=== PATIENT | female | born 1965 | race African-American/Black ===

== ENCOUNTER 2016-12-20 22:36 | Inpatient (IN) ==
[2016-12-20] MEDS ORDERED: NITROGLYCERIN SL 0.4 MG TABLET SL STA (22:58)
[2016-12-20] MEDS ORDERED: NITROGLYCERIN SL 0.4 MG TABLET SL ONE (23:01)
[2016-12-20] MEDS ORDERED: METOPROLOL TARTRATE 5 MG/5 ML VIAL IV STA (23:06)
[2016-12-20] MEDS ORDERED: ALBUTEROL/IPRATROPIUM 3 ML NEB RESP TX STA (23:09)
[2016-12-20] MEDS ORDERED: METOPROLOL TARTRATE 5 MG/5 ML VIAL IV ONE (23:20)
[2016-12-20 23:22] LABS: Basophils % 0.2 % (0.0-0.8); Eosinophils # 0.1 10*3/uL (0.0-0.87); Hematocrit 37.1 VOL% (35.7-47.0); Hemoglobin 11.7 GM/DL (12.0-16.0); Immature Granulocytes Absolute 0.13 #; Lymphocytes # 2.5 10*3/uL (1.4-4.0); Lymphocytes % 18.9 % (21.3-54.2); Mean Corpuscular HGB Conc 31.5 GM/DL (32-36); Mean Corpuscular Hemoglobin 28 PG (27-34); Mean Corpuscular Volume 89.4 FL (87-102); Monocytes # 0.7 10*3/uL (0.11-0.8); Monocytes % 5.1 % (1.7-12.7); NRBC # 0.07 10*3/uL; Neutrophils # 9.7 10*3/uL (1.4-7.4); Neutrophils % 73.8 % (38.7-73.9); Platelet Count 253 T/CUMM (130-400); Red Blood Count 4.15 MC/CUMM (3.8-5.5); Red Cell Distribution Width 14.2 % (9.3-17.3); White Blood Count 13.1 T/CUMM (4-12)
--- NOTE | 2016-12-20 23:24 | Emergency Department Note ---
Yeni Benavides Mantricia, am scribing for, and in the presence of, Adelaida Lyons DO 23:00. IEloy Debra, DO, personally performed the services described in this documentation, ascribed by Paulie Jaime in my presence, and it is both accurate and complete 324 . Arrival - Arrival Chief Complaint: Shortness of Breath Stated Complaint: Short of breath ED Nursing Triage Note: C/C shortness of breath. Pt was given steroid shot yesterday for URI. EMS gave pt one Albuterol breathing treatment, BS 445 mg/dl. Mode of Arrival: Stretcher Limitations: No Limitations Source: Patient Time Seen by Provider: 12/20/16 22:57 - History of Present Illness HPI Narrative: Pt is a 51 y/o black female arriving to ED by EMS with c/o SOB that onset today. Pt reports that she was seen by her PCP yesterday and was given a steroid shot as the treatment for a sinus infection. She states that after the left the clinic and began to lay down, she became extremely SOB and began to vomit. Pt has a right BKA noted and reports that she coded in 2013 and woke up to her right leg being amputated because of possible blood clot. At time of exam , pt's blood pressure is 221/148. No other complaints were reported to ED. Onset (ago): hour(s) Consistency: constant Severity: mild Allergies/Adverse Reactions: Allergies Allergy/AdvReac Type Severity Reaction Status Date / Time sumatriptan [From Imitrex] Allergy RASH Verified 12/20/16 22:53 zolmitriptan [From Zomig] Allergy RASH Verified 12/20/16 22:53 lidocaine AdvReac Unknown/Unable Verified 12/20/16 22:59 to obtain Review of System - Review of System 12 point system: reviewed and no additional remarkable complaints except as stated - Review of System Constitutional: Absent: chills, diaphoresis, fever Eyes: Absent: pain Head/Ears/Nose/Throat: Absent: earache Respiratory: Present: other (SOB). Absent: cough Cardiovascular: Absent: chest pain Gastrointestinal: Absent: abdominal pain, nausea, vomiting, diarrhea Medical,Surgical,& Family Hx - Medical History Cardio: History of: CHF, CAD, Hypertension, Cardiovascular Problems (Stent) Endocrine: History of: Diabetes Mellitus (IDDM), Dyslipidemia Gastrointestinal: History of: GERD Musculoskeletal: History of: Musculoskeletal Problems (Neuropathy) - Surgical History Cardiac Surgeries: Sugical HX of: Cardiac Catheterization Orthopedic Surgeries: Surgical HX of;: Orthopedic Surgery (RAKA) - Social History Smoking Status: Never smoker Frequency of Alcohol Use: None Type of Drug Use: None Exam Vital Signs: Vital Signs Temperature 98.1 F 12/20/16 22:37 Pulse Rate 97 H 12/20/16 22:37 Respiratory Rate 24 12/20/16 22:37 Blood Pressure 237/127 12/20/16 22:37 O2 Sat by Pulse Oximetry 78 L 12/20/16 22:37 - General General appearance: alert, in no apparent distress, obese - Head Head exam: Present: atraumatic, normocephalic, normal inspection - Eye Eye exam: Present: normal appearance, PERRL, EOMI - ENT ENT exam: Present: normal exam, normal oropharynx, mucous membranes moist, TM's normal bilaterally, normal external ear exam - Neck Neck exam: Present: normal inspection, full ROM, trachea midline. Absent: tenderness - Chest Chest inspection: Present: normal inspection, symmetric chest wall rise. Absent : tenderness - Respiratory Respiratory exam: Present: accessory muscle use, wheezes - Cardiovascular Cardiovascular exam: Present: regular rate, normal rhythm, normal heart sounds - Abdominal Exam Abdominal exam: Present: soft, normal bowel sounds. Absent: distention, tenderness, guarding, rebound - Extremities Exam Extremities exam: Present: normal inspection, full ROM, normal capillary refill , other (right BKA). Absent: tenderness, pedal edema - Back Exam Back exam: Present: normal inspection, full ROM. Absent: tenderness - Neurological Exam Neurological exam: Present: alert, oriented X3, CN II-XII intact, normal gait, reflexes normal - Psychiatric Psychiatric exam: Present: normal affect, normal mood - Skin Skin exam: Present: warm, dry, intact, normal color
[2016-12-20 23:28] LABS: INR 1.1; Partial Thromboplastin Time 37.1 SECS (0-40)
[2016-12-20 23:43] LABS: Alanine Aminotransferase 17 U/L (13-56); Albumin 3.4 G/DL (3.4-5.0); Alkaline Phosphatase 115 U/L (45-117); Aspartate Amino Transferase 14 U/L (0-37); Blood Urea Nitrogen 22 MG/DL (7-18); Calcium 9.5 MG/DL (8.5-10.1); Glucose 444 MG/DL (74-106); Osmolality,Calculated 294.8 MOS/KG (273-304); Potassium 4.6 MMOL/L (3.5-5.1); Sodium 137 MMOL/L (136-145); Total Protein 6.8 G/DL (6.4-8.3)
[2016-12-20 23:48] LABS: Troponin I Only 0.046 NG/ML (0.00-0.045)
[2016-12-20] MEDS ORDERED: ONDANSETRON 4 MG/2 ML VIAL ONE (23:48)
[2016-12-20] MEDS ORDERED: ONDANSETRON 4 MG/2 ML VIAL IV STA (23:48)
[2016-12-21] MEDS ORDERED: INSULIN REGULAR 100 UNIT/ML IV STA (00:47)
[2016-12-21] MEDS ORDERED: FUROSEMIDE 40 MG/4 ML VIAL IV STA (00:53)
--- NOTE | 2016-12-21 00:57 | Hospitalist History & Physical ---
Assessment and Plan (1) Dyspnea on exertion Status: Acute Current Visit: Yes (2) Congestive heart failure Status: Acute Current Visit: Yes (3) Diabetes Status: Acute Current Visit: Yes (4) Hypertension Status: Acute Assessment and plan: Our plan for this patient will be admitting her to a telemetry bed. Will get a 2D echo on this patient. I strongly suspecting that she has congestive heart failure versus cor pulmonale. Her x-ray looks like pulmonary edema to me. I do not have a BNP back. Will get cardiology to evaluate her in the a.m. Current Visit: Yes History of Present Illness Chief complaint: Shortness of breath History of present illness: Ms. David is a 51 year old female with past medical history significant for diabetes, migraines, lower back pain, coronary artery disease, reflux and peripheral artery disease who is in normal state of health till this evening. Patient has a history of having cough and congestion. She went to her primary care doctor and was given a steroid shot. When she got ready to take her night medicine she laid back and felt like she was drowning could not catch her breath. She normally sleeps with her self elevated therefore do not understand exactly why she laid flat. She reports feeling a little bit better got a breathing treatment in the emergency room and will be getting some Lasix. She denies congestive heart failure but I am unsure if patient really knows all of her medical problems. She is morbidly obese and does give a history that she coded on the table one time. I was consulted for admission. Home Medications Medication Instructions Recorded Confirmed Type Aspirin [Ecotrin] 81 mg PO DAILY 12/21/16 12/21/16 History Atorvastatin [Lipitor] 80 mg PO BEDTIME 12/21/16 12/21/16 History Carvedilol [Coreg] 6.25 mg PO BID 12/21/16 12/21/16 History Clopidogrel [Plavix] 75 mg PO DAILY 12/21/16 12/21/16 History Dabigatran [Pradaxa] 150 mg PO BID 12/21/16 12/21/16 History Docusate Sodium [Stool Softener] 100 mg PO BID PRN 12/21/16 12/21/16 History Furosemide Tab [Lasix Tab] 40 mg PO DAILY 12/21/16 12/21/16 History Gabapentin 1,200 mg PO BEDTIME 12/21/16 12/21/16 History Insulin Aspart [NovoLOG FlexPen] 17 unit SUBCUT TID 12/21/16 12/21/16 History Insulin Glargine,Hum.rec.anlog 43 unit SUBCUT DAILY 12/21/16 12/21/16 History [Lantus SoloStar] Methocarbamol Tab [Robaxin Tab] 500 mg PO TID 12/21/16 12/21/16 History Pantoprazole Sodium [Protonix] 40 mg PO DAILY 12/21/16 12/21/16 History Promethazine Tab [Phenergan Tab] 25 mg PO TID PRN 12/21/16 12/21/16 History Sertraline [Zoloft] 25 mg PO BEDTIME 12/21/16 12/21/16 History cloNIDine HCl [Clonidine HCl] 0.1 mg PO BID 12/21/16 12/21/16 History traZODone [Desyrel] 50 mg PO BEDTIME 12/21/16 12/21/16 History Allergies Allergy/AdvReac Type Severity Reaction Status Date / Time sumatriptan [From Imitrex] Allergy RASH Verified 12/20/16 22:53 zolmitriptan [From Zomig] Allergy RASH Verified 12/20/16 22:53 lidocaine AdvReac Unknown/Unable Verified 12/20/16 22:59 to obtain Medical,Surgical,& Family Hx - Medical History Cardio: History of: CHF, CAD, Hypertension, Cardiovascular Problems (Stent) Endocrine: History of: Diabetes Mellitus (IDDM), Dyslipidemia Gastrointestinal: History of: GERD Musculoskeletal: History of: Musculoskeletal Problems (Neuropathy) - Surgical History Cardiac Surgeries: Sugical HX of: Cardiac Catheterization Orthopedic Surgeries: Surgical HX of;: Orthopedic Surgery (RAKA) - Social History Smoking Status: Never smoker Frequency of Alcohol Use: None Type of Drug Use: None 12 point system: reviewed and no additional remarkable complaints except as stated Exam - Constitutional Vitals: Period Temp Pulse Resp BP Sys/De Oliveira Pulse Ox Last 24 Hr 98.1 F-98.1 F 75-97 22-24 182-237/98-127 78-98 General appearance: morbidly obese - Head Head exam: Present: normal inspection - Eye Eye exam: Present: EOMI Pupils: Present: LESLY - ENT ENT exam: Present: normal exam - Neck Neck exam: Present: normal inspection - Respiratory Respiratory exam: Present: clear to auscultation bilaterally - Cardiovascular Cardiovascular exam: Present: regular rate and rhythm - GI/Abdominal GI/Abdominal exam: Present: normal bowel sounds - Extremities Exam Extremities exam: Present: other (Patient has an AKA on the right) - Back Exam Back exam: Present: normal inspection - Neurological Exam Neurological exam: Present: alert, oriented X3 - Psychiatric Psychiatric exam: Present: normal affect Results - Labs CBC & BMP: 12/20/16 22:58 12/20/16 22:58
[2016-12-21] MEDS ORDERED: DEXTROSE 50% 25 GM/50 ML SYRINGE IV PRN (01:05)
[2016-12-21] MEDS ORDERED: MAGNESIUM SULF RIDER 2 GM in PREMIX 1 EACH IV PRN (01:05)
[2016-12-21] MEDS ORDERED: MAGNESIUM SULF RIDER 4 GM in PREMIX 1 EACH IV PRN (01:05)
[2016-12-21] MEDS ORDERED: GLUCAGON 1 MG VIAL IM PRN ×2 (01:05)
[2016-12-21] MEDS ORDERED: ACETAMINOPHEN 325 MG TABLET PO PRN (01:05)
[2016-12-21] MEDS ORDERED: ONDANSETRON 4 MG/2 ML VIAL IV PRN (01:05)
[2016-12-21] MEDS ORDERED: DEXTROSE 50% 25 GM/50 ML VIAL IV PRN (01:05)
[2016-12-21] MEDS ORDERED: DOCUSATE SODIUM 100 MG CAPSULE PO PRN (01:14)
[2016-12-21] MEDS ORDERED: PROMETHAZINE 25 MG TABLET PO PRN (01:14)
[2016-12-21] MEDS ORDERED: FUROSEMIDE 100 MG/10 ML VIAL ONE (01:15)
[2016-12-21] MEDS ORDERED: INSULIN GLARGINE 100 UNIT/ML SUBCUT ONE (01:17)
[2016-12-21] MEDS: KETOROLAC 30 MG/1 ML VIAL IV PRN (02:06)
[2016-12-21 05:17] LABS: Basophils % 0.3 % (0.0-0.8); Eosinophils # 0.1 10*3/uL (0.0-0.87); Eosinophils % 0.7 % (0.00-10.9); Hematocrit 33.5 VOL% (35.7-47.0); Hemoglobin 10.5 GM/DL (12.0-16.0); Immature Granulocytes % 0.9 %; Immature Granulocytes Absolute 0.12 #; Lymphocytes # 2.2 10*3/uL (1.4-4.0); Lymphocytes % 16.2 % (21.3-54.2); Mean Corpuscular HGB Conc 31.3 GM/DL (32-36); Mean Corpuscular Hemoglobin 28 PG (27-34); Mean Corpuscular Volume 89.3 FL (87-102); Mean Platelet Volume 11.3 FL (9.6-12.0); Monocytes # 0.9 10*3/uL (0.11-0.8); Monocytes % 6.8 % (1.7-12.7); NRBC # 0.06 10*3/uL; Neutrophils # 10.3 10*3/uL (1.4-7.4); Neutrophils % 75.1 % (38.7-73.9); Platelet Count 252 T/CUMM (130-400); Red Blood Count 3.75 MC/CUMM (3.8-5.5); Red Cell Distribution Width 14.5 % (9.3-17.3); White Blood Count 13.7 T/CUMM (4-12)
[2016-12-21 05:50] LABS: Albumin 3.1 G/DL (3.4-5.0); Bilirubin,Total 0.9 MG/DL (0.2-1.0); Calcium 8.9 MG/DL (8.5-10.1); Osmolality,Calculated 297.5 MOS/KG (273-304); Potassium 4.7 MMOL/L (3.5-5.1); Total Protein 6.3 G/DL (6.4-8.3)
[2016-12-21 05:57] LABS: Troponin I Only 0.147 NG/ML (0.00-0.045)
--- NOTE | 2016-12-21 06:09 | Ultrasound Report ---
Exam: US venous doppler LE LT Indication: Swelling history of DVT Date: 12/21/2016 11:06 PM Findings: Grayscale color flow duplex/Doppler imaging and spectral analysis waveform imaging was performed with real-time ultrasound with image stored and captured. The left common femoral, superficial femoral, popliteal saphenous veins are patent with normal augmentation and compression. There is no evidence of popliteal or Quintana's cyst. Normal wave form analysis present. Normal color flow Impression: 1. No DVT PROCEDURE INTERPRETED AT [facility] DEPARTMENT OF RADIOLOGY Final Report Signed by: Dr. Alfie Dooley
--- NOTE | 2016-12-21 06:42 | XRay Report ---
Exam: XR chest 1V portable Date: 12/20/2016 11:06 PM Indication: Shortness of breath Comparison: 06/27/2013 Technical: AP Findings: Cardiomegaly is present with patchy interstitial densities in the perihilar regions left greater than right. Tiny low volume effusion present. External cardiac leads are present. No pneumothorax. Mediastinum appears otherwise intact. There is interval removal of the right IJ catheter with compared to previous study Impression: 1. Cardiomegaly with suggestion of mild shunt vascularity suggest component of underlying CHF with tiny effusions. Patchy infiltrates superimposed cannot be totally excluded PROCEDURE INTERPRETED AT [facility] DEPARTMENT OF RADIOLOGY Final Report Signed by: Dr. Alfie Dooley
[2016-12-21] MEDS: DABIGATRAN 150 MG CAPSULE PO SCH ×2 (08:56→21:58)
[2016-12-21] MEDS: CARVEDILOL 6.25 MG TABLET PO SCH ×2 (08:57→17:01)
[2016-12-21] MEDS: INSULIN LISPRO 100 UNIT/ML SUBCUT SCH ×3 (08:57→17:01)
[2016-12-21] MEDS: METHOCARBAMOL 500 MG TABLET PO SCH ×3 (08:57→21:58)
[2016-12-21] MEDS: ASPIRIN CHEW 81 MG TABLET PO SCH (08:57)
[2016-12-21] MEDS: INSULIN REGULAR 100 UNIT/ML SUBCUT SCH ×4 (08:57→23:36)
[2016-12-21] MEDS: PANTOPRAZOLE 40 MG TABLET PO SCH (08:57)
[2016-12-21] MEDS: cloNIDine 0.1 MG TABLET PO SCH ×2 (08:57→21:58)
[2016-12-21] MEDS: FUROSEMIDE 40 MG/4 ML VIAL IV SCH ×2 (08:57→16:35)
[2016-12-21] MEDS: CLOPIDOGREL 75 MG TABLET PO SCH (08:57)
[2016-12-21] MEDS: INSULIN GLARGINE 100 UNIT/ML SUBCUT SCH (08:58)
--- NOTE | 2016-12-21 10:15 | EKG Report ---
Stationary ECG Study [facility] ER Test Date: 12/20/2016 10:49:50 PM Pat Name: PUNEET CALDERON Department: Room: 276 Gender: F [employer]: : [id number] Requested by: Adelaida Lyons Order Number: [id number] Reading MD: DAMIEN GIORDANO Intervals [place] Rate: 95 P: 71 VT: 156 QRS: 63 QRSD: 96 T: 122 QT: 352 QTc: 404 Interpretive Statements SINUS RHYTHM Electronically Signed On 12-23-16 18:38:13 CDT by DAMIEN GIORDANO [email or web address]
--- NOTE | 2016-12-21 10:32 | Cardiology Consult Note ---
<Ghazala Tabares E - Last Filed: 12/21/16 12:29> Assessment and Plan - Time spent with patient Time spent with patient: Greater than 30 minutes (due to assessment, plan, and documentation) (1) Dyspnea on exertion Status: Acute Assessment and plan: See plan of care listed below. Current Visit: Yes (2) Congestive heart failure Status: Acute Assessment and plan: See plan of care listed below. Current Visit: Yes (3) Coronary artery disease Status: Chronic Assessment and plan: See plan of care listed below. Current Visit: Yes (4) Peripheral artery disease Status: Chronic Assessment and plan: See plan of care listed below. Current Visit: Yes (5) Hypertension Status: Chronic Assessment and plan: See plan of care listed below. Current Visit: Yes (6) Diabetes Status: Chronic Assessment and plan: See plan of care listed below. Current Visit: Yes (7) GERD (gastroesophageal reflux disease) Status: Chronic Assessment and plan: See plan of care listed below. Current Visit: Yes (8) Migraines Status: Chronic Assessment and plan: See plan of care listed below. Current Visit: Yes (9) Low back pain Status: Chronic Assessment and plan: See plan of care listed below. Current Visit: Yes (10) Former smoker Status: Chronic Assessment and plan: See plan of care listed below. 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 David is a 51 year old female with a history of coronary artery disease, peripheral artery disease, hypertension, diabetes, migraines, low back pain, reflux. She has a history of right above the knee amputation and has also had her left great toe and left pinky toe amputated. She is a former smoker having quit in 2000 after smoking for 8 years. She denies any use of alcohol or drugs. She reports that she had 2 stents placed at [facility] in 2014 but is unsure of her doctor's name. She also tells me that she has coded in the past. Apparently, in 2013, she went in to have some toes amputated and post operatively, she was walking to the bathroom when she passed out and her heart stopped. She tells me that when she woke up several days later , her entire right leg was amputated above the knee and she was told that she'd had a blood clot in it. I do not have her previous records at this time as she has been treated primarily at [facility]. Ms. David presented to the emergency room yesterday evening with complaints of shortness of breath. She tells me that she began feeling poorly Saturday evening and went to her PCP's office on Saturday with nasal congestion and productive cough of thick yellow sputum. She was given a steroid shot. Last night, she tells me that she laid back and felt as if she couldn't catch her breath. She states that she had some right sided chest discomfort that made her feel as if she couldn't take a deep breath and if there was fluid in her chest. She received a breathing treatment in the ER and has been receiving IV Lasix and she report she feels much better today than she did yesterday. Her WBC was 13.7 but she has been afebrile. She was also noted to have some mild troponin elevation with normal CPK and CK-MB. BNP was noted to be 547. ASSESSMENT/PLAN: 1. SHORTNESS OF BREATH - Overall much improved. We will continue with diuresis and await results of her echocardiogram. Venous doppler was negative for DVT. 2. CONGESTIVE HEART FAILURE - She denies a prior history of CHF. Echocardiogram is pending. BNP 547. Chest x-ray suggestive of CHF vs. pneumonia. She has been given a breathing treatment and started on IV Lasix BID and is feeling much better. Continue beta stephanie, aspirin, statin. Creatinine is mildly elevated at 1.2. If this doesn't worsen, would like to try to wean her from the clonidine and place her on SHEMAR. 3. CORONARY ARTERY DISEASE - She reports that she had 2 stents placed at [facility] in 2014 but is unsure of her doctor's name. 4. PERIPHERAL ARTERY DISEASE - S/P right AKA. S/p left great toe and left pinky toe amputation. 5. HYPERTENSION - Blood pressure has been well controlled with occasional elevated readings. Home medications have been resumed. We will continue to monitor and adjust accordingly. 6. DIABETES - She has been started on accuchecks with sliding scale insulin. 7. GERD - Continue PPI. 8. MIGRAINES - Chronic, patient is allergic to triptans. 9. LOW BACK PAIN - Chronic. 10. FORMER SMOKER - Quit in 1999 after smoking for approximately 8 years. CC: Jim Barahona MD - Home Medications and Allergies Home Medications: Home Medications Medication Instructions Recorded Confirmed Type Aspirin [Ecotrin] 81 mg PO DAILY 12/21/16 12/21/16 History Atorvastatin [Lipitor] 80 mg PO BEDTIME 12/21/16 12/21/16 History Carvedilol [Coreg] 6.25 mg PO BID 12/21/16 12/21/16 History Clopidogrel [Plavix] 75 mg PO DAILY 12/21/16 12/21/16 History Dabigatran [Pradaxa] 150 mg PO BID 12/21/16 12/21/16 History Docusate Sodium [Stool Softener] 100 mg PO BID PRN 12/21/16 12/21/16 History Furosemide Tab [Lasix Tab] 40 mg PO DAILY 12/21/16 12/21/16 History Gabapentin 1,200 mg PO BEDTIME 12/21/16 12/21/16 History Insulin Aspart [NovoLOG FlexPen] 17 unit SUBCUT TID 12/21/16 12/21/16 History Insulin Glargine,Hum.rec.anlog 43 unit SUBCUT DAILY 12/21/16 12/21/16 History [Lantus SoloStar] Methocarbamol Tab [Robaxin Tab] 500 mg PO TID 12/21/16 12/21/16 History Pantoprazole Sodium [Protonix] 40 mg PO DAILY 12/21/16 12/21/16 History Promethazine Tab [Phenergan Tab] 25 mg PO TID PRN 12/21/16 12/21/16 History Sertraline [Zoloft] 25 mg PO BEDTIME 12/21/16 12/21/16 History cloNIDine HCl [Clonidine HCl] 0.1 mg PO BID 12/21/16 12/21/16 History traZODone [Desyrel] 50 mg PO BEDTIME 12/21/16 12/21/16 History Allergies/Adverse Reactions: Allergies Allergy/AdvReac Type Severity Reaction Status Date / Time sumatriptan [From Imitrex] Allergy RASH Verified 12/20/16 22:53 zolmitriptan [From Zomig] Allergy RASH Verified 12/20/16 22:53 lidocaine AdvReac Unknown/Unable Verified 12/20/16 22:59 to obtain Review of systems: - Constitutional: Present: As per HPI. Absent: anorexia, chills, daytime sleepiness, excessive sweating, fever(s), frequent falls, headache(s), increased appetite, lethargy, malaise, night sweats, stops breathing during sleep, weakness, weight gain, weight loss, fatigue. - EENT Eyes: Present: As per HPI. Absent: blurry vision, diplopia, loss of vision Ears: Present: As per HPI. Absent: decreased hearing, ear discharge, ear pain Nose, mouth and throat: Present: nasal congestion, As per HPI. Absent: dysphagia , epistaxis, headache(s), hoarseness, lip swelling, neck mass, neck pain, sinus pressure, sore throat, throat swelling, tongue swelling, vertigo - Cardiovascular: Present: dyspnea, dyspnea on exertion, edema, as per HPI. Absent: chest pain at rest, chest pain with activity, claudication, diaphoresis , radiating jaw, neck or arm pain, lightheadedness, orthopnea, palpitations, PND - Respiratory: Present: dyspnea, dyspnea on exertion, cough, as per HPI. Absent : hemoptysis, wheezing, snoring, pain on inspiration - Gastrointestinal: Present: As per HPI. Absent: abdominal pain, bloating, change in bowel habits, constipation, diarrhea, heartburn, hematemesis, hematochezia, loose stools, melena, nausea, vomiting - Genitourinary: Present: As per HPI. Absent: difficulty urinating, dysuria, flank pain, hematuria, nocturia, urinary frequency, urinary incontinence - Musculoskeletal: Present: back pain, As per HPI. Absent: arthralgias, joint swelling, limited range of motion, muscle cramps, muscle weakness, myalgias - Neurological: Present: impaired gait, As per HPI. Absent: abnormal speech, behavioral changes, confusion, convulsions, disequilibrium, dizziness, focal weakness, frequent falls, headache(s), memory loss, numbness, paresthesias, radicular pain, syncope, tremor(s) - Psychiatric: Present: As per HPI. Absent: anxiety, confusion, depression, panic attacks - Endocrine: Present: As per HPI. Absent: cold intolerance, fatigue, heat intolerance, polydipsia, polyphagia - Hematologic/Lymphatic: Present: As per HPI. Absent: easy bleeding, easy bruising, lymphadenopathy Medical,Surgical,& Family Hx - Medical History Cardio: History of: CHF, CAD, Hypertension, Cardiovascular Problems (Stent) Endocrine: History of: Diabetes Mellitus (IDDM), Dyslipidemia Gastrointestinal: History of: GERD Musculoskeletal: History of: Musculoskeletal Problems (Neuropathy) - Surgical History Cardiac Surgeries: Sugical HX of: Cardiac Catheterization Orthopedic Surgeries: Surgical HX of;: Orthopedic Surgery (RAKA) - Social History Smoking Status: Never smoker Frequency of Alcohol Use: None Type of Drug Use: None Physical Examination Vital Signs Temp Pulse Resp BP Pulse Ox 98.1 F 97 H 24 237/127 78 L 12/20/16 22:37 12/20/16 22:37 12/20/16 22:37 12/20/16 22:37 12/20/16 22:37 Exam: General appearance: Pleasant and cooperative. Overweight, no acute distress. Head exam: Present: normal inspection, normocephalic, atraumatic. Absent: hematoma, laceration Eye exam: Present: EOMI. Absent: conjunctival injection, nystagmus, periorbital swelling, scleral icterus, laceration to eyelids Pupils: Present: PERRL. Absent: constricted, dilated, fixed, irregular, unequal ENT exam: Present: normal exam, normal external ear exam Neck exam: Present: normal inspection. Absent: lymphadenopathy, meningismus, tenderness, thyromegaly, carotid bruit Respiratory exam: Present: bibasilar rales posteriorly, otherwise clear to auscultation bilaterally. Absent: accessory muscle use, chest wall tenderness, rhonchi, wheezing. Cardiovascular exam: Present: regular rate and rhythm. Absent: gallop, JVD, rubs, murmur GI/Abdominal exam: Present: normal bowel sounds, soft. Absent: distended, firm , guarding, hernia, mass, tenderness, rebound. Extremities exam: Present: Right AKA, left great toe and left pinky toe missing from prior amputation. normal capillary refill. Upper extremity pulses 2+. Left Lower extremity pulse diminished. 1-2+ pitting edema to LLE. Absent: calf tenderness Musculoskeletal: Present: No Fluid Collection, No Pain Back exam: Present: normal inspection. Absent: muscle spasm, vertebral tenderness Neurological exam: Present: alert, oriented X3, grossly intact without resting or essential tremor Psychiatric exam: Present: normal affect, normal mood Skin exam: Present: normal color, warm, dry, intact. Absent: cyanosis, diaphoretic, rash, urticaria Result/EKG - Labs CBC & BMP: 12/21/16 04:54 12/21/16 04:54 Lab Results: I have reviewed the past 24 hour labs Labs: Laboratory Results - last 24 hr 12/20/16 12/20/16 12/20/16 22:58 22:58 22:58 WBC 13.1 H RBC 4.15 Hgb 11.7 L Hct 37.1 MCV 89.4 MCH 28 MCHC 31.5 L RDW 14.2 Plt Count 253 MPV 11.0 Neut % (Auto) 73.8 Lymph % (Auto) 18.9 L [place] % (Auto) 5.1 Eos % (Auto) 1.0 Baso % (Auto) 0.2 Neut # (Auto) 9.7 H Lymph # (Auto) 2.5 [place] # (Auto) 0.7 Eos # (Auto) 0.1 Baso # (Auto) 0.0 Immature Gran % 1.0 Nucleated RBC % 0.5 Immature Gran # 0.13 Nucleated RBCs # 0.07 Immature Plt Fraction 0.0 INR 1.1 PT Patient/Control Mix 12.0 Circ Anticoag PTT 37.1 Sodium 137 Potassium 4.6 Chloride 101 Carbon Dioxide 26 Anion Gap 14.6 BUN 22 H Creatinine 1.10 H GFR Calculation 74 BUN/Creatinine Ratio 20.00 Glucose 444 H POC Glucose Calculated Osmolality 294.8 Calcium 9.5 Total Bilirubin 0.40 AST 14 ALT 17 Alkaline Phosphatase 115 Total Creatine Kinase 103 CK-MB (CK-2) 2.3 Troponin I 0.046 H B-Natriuretic Peptide Total Protein 6.8 Albumin 3.4 Globulin 3.4 Albumin/Globulin Ratio 1.0 L b-Hydroxybutyric mmol/L 0.2 12/20/16 12/21/16 12/21/16 23:30 03:49 04:54 WBC RBC Hgb Hct MCV MCH MCHC RDW Plt Count MPV Neut % (Auto) Lymph % (Auto) [place] % (Auto) Eos % (Auto) Baso % (Auto) Neut # (Auto) Lymph # (Auto) [place] # (Auto) Eos # (Auto) Baso # (Auto) Immature Gran % Nucleated RBC % Immature Gran # Nucleated RBCs # Immature Plt Fraction INR PT Patient/Control Mix Circ Anticoag PTT Sodium Potassium Chloride Carbon Dioxide Anion Gap BUN Creatinine GFR Calculation BUN/Creatinine Ratio Glucose POC Glucose 354 H Calculated Osmolality Calcium Total Bilirubin AST ALT Alkaline Phosphatase Total Creatine Kinase 95 CK-MB (CK-2) 2.1 Troponin I 0.147 H D B-Natriuretic Peptide 547 H Total Protein Albumin Globulin Albumin/Globulin Ratio b-Hydroxybutyric mmol/L 12/21/16 12/21/16 12/21/16 04:54 04:54 08:04 WBC 13.7 H RBC 3.75 L Hgb 10.5 L Hct 33.5 L MCV 89.3 MCH 28 MCHC 31.3 L RDW 14.5 Plt Count 252 MPV 11.3 Neut % (Auto) 75.1 H Lymph % (Auto) 16.2 L [place] % (Auto) 6.8 Eos % (Auto) 0.7 Baso % (Auto) 0.3 Neut # (Auto) 10.3 H Lymph # (Auto) 2.2 [place] # (Auto) 0.9 H Eos # (Auto) 0.1 Baso # (Auto) 0.0 Immature Gran % 0.9 Nucleated RBC % 0.4 Immature Gran # 0.12 Nucleated RBCs # 0.06 Immature Plt Fraction 0.0 INR PT Patient/Control Mix Circ Anticoag PTT Sodium 139 Potassium 4.7 Chloride 102 Carbon Dioxide 28 Anion Gap 13.7 BUN 24 H Creatinine 1.20 H GFR Calculation 72 BUN/Creatinine Ratio 20.00 Glucose 399 H POC Glucose 401 H Calculated Osmolality 297.5 Calcium 8.9 Total Bilirubin 0.90 AST 8 ALT 12 L Alkaline Phosphatase 105 Total Creatine Kinase CK-MB (CK-2) Troponin I B-Natriuretic Peptide Total Protein 6.3 L Albumin 3.1 L Globulin 3.2 Albumin/Globulin Ratio 0.9 L b-Hydroxybutyric mmol/L - EKG EKG results: interpreted by me, sinus rhythm <Florence Wilkins - Last Filed: 12/21/16 17:05> History of Present Illness - Consult Narrative History of present illness: I have personally interviewed and evaluated the patient, reviewed the chart and discussed medical decision-making with practitioner Rayshawn. I have read this note and agree with her documentation here in. CC: Jim Barahona MD Physical Examination Vital Signs Temp Pulse Resp BP Pulse Ox 98.1 F 97 H 24 237/127 78 L 12/20/16 22:37 12/20/16 22:37 12/20/16 22:37 12/20/16 22:37 12/20/16 22:37 Result/EKG - Labs CBC & BMP: 12/21/16 04:54 12/21/16 04:54 Labs: Laboratory Results - last 24 hr 12/20/16 12/20/16 12/20/16 22:58 22:58 22:58 WBC 13.1 H RBC 4.15 Hgb 11.7 L Hct 37.1 MCV 89.4 MCH 28 MCHC 31.5 L RDW 14.2 Plt Count 253 MPV 11.0 Neut % (Auto) 73.8 Lymph % (Auto) 18.9 L [place] % (Auto) 5.1 Eos % (Auto) 1.0 Baso % (Auto) 0.2 Neut # (Auto) 9.7 H Lymph # (Auto) 2.5 [place] # (Auto) 0.7 Eos # (Auto) 0.1 Baso # (Auto) 0.0 Immature Gran % 1.0 Nucleated RBC % 0.5 Immature Gran # 0.13 Nucleated RBCs # 0.07 Immature Plt Fraction 0.0 INR 1.1 PT Patient/Control Mix 12.0 Circ Anticoag PTT 37.1 Sodium 137 Potassium 4.6 Chloride 101 Carbon Dioxide 26 Anion Gap 14.6 BUN 22 H Creatinine 1.10 H GFR Calculation 74 BUN/Creatinine Ratio 20.00 Glucose 444 H POC Glucose Calculated Osmolality 294.8 Calcium 9.5 Total Bilirubin 0.40 AST 14 ALT 17 Alkaline Phosphatase 115 Total Creatine Kinase 103 CK-MB (CK-2) 2.3 Troponin I 0.046 H B-Natriuretic Peptide Total Protein 6.8 Albumin 3.4 Globulin 3.4 Albumin/Globulin Ratio 1.0 L b-Hydroxybutyric mmol/L 0.2 12/20/16 12/21/16 12/21/16 23:30 03:49 04:54 WBC RBC Hgb Hct MCV MCH MCHC RDW Plt Count MPV Neut % (Auto) Lymph % (Auto) [place] % (Auto) Eos % (Auto) Baso % (Auto) Neut # (Auto) Lymph # (Auto) [place] # (Auto) Eos # (Auto) Baso # (Auto) Immature Gran % Nucleated RBC % Immature Gran # Nucleated RBCs # Immature Plt Fraction INR PT Patient/Control Mix Circ Anticoag PTT Sodium Potassium Chloride Carbon Dioxide Anion Gap BUN Creatinine GFR Calculation BUN/Creatinine Ratio Glucose POC Glucose 354 H Calculated Osmolality Calcium Total Bilirubin AST ALT Alkaline Phosphatase Total Creatine Kinase 95 CK-MB (CK-2) 2.1 Troponin I 0.147 H D B-Natriuretic Peptide 547 H Total Protein Albumin Globulin Albumin/Globulin Ratio b-Hydroxybutyric mmol/L 12/21/16 12/21/16 12/21/16 04:54 04:54 08:04 WBC 13.7 H RBC 3.75 L Hgb 10.5 L Hct 33.5 L MCV 89.3 MCH 28 MCHC 31.3 L RDW 14.5 Plt Count 252 MPV 11.3 Neut % (Auto) 75.1 H Lymph % (Auto) 16.2 L [place] % (Auto) 6.8 Eos % (Auto) 0.7 Baso % (Auto) 0.3 Neut # (Auto) 10.3 H Lymph # (Auto) 2.2 [place] # (Auto) 0.9 H Eos # (Auto) 0.1 Baso # (Auto) 0.0 Immature Gran % 0.9 Nucleated RBC % 0.4 Immature Gran # 0.12 Nucleated RBCs # 0.06 Immature Plt Fraction 0.0 INR PT Patient/Control Mix Circ Anticoag PTT Sodium 139 Potassium 4.7 Chloride 102 Carbon Dioxide 28 Anion Gap 13.7 BUN 24 H Creatinine 1.20 H GFR Calculation 72 BUN/Creatinine Ratio 20.00 Glucose 399 H POC Glucose 401 H Calculated Osmolality 297.5 Calcium 8.9 Total Bilirubin 0.90 AST 8 ALT 12 L Alkaline Phosphatase 105 Total Creatine Kinase CK-MB (CK-2) Troponin I B-Natriuretic Peptide Total Protein 6.3 L Albumin 3.1 L Globulin 3.2 Albumin/Globulin Ratio 0.9 L b-Hydroxybutyric mmol/L 12/21/16 12/21/16 12:03 16:27 WBC RBC Hgb Hct MCV MCH MCHC RDW Plt Count MPV Neut % (Auto) Lymph % (Auto) [place] % (Auto) Eos % (Auto) Baso % (Auto) Neut # (Auto) Lymph # (Auto) [place] # (Auto) Eos # (Auto) Baso # (Auto) Immature Gran % Nucleated RBC % Immature Gran # Nucleated RBCs # Immature Plt Fraction INR PT Patient/Control Mix Circ Anticoag PTT Sodium Potassium Chloride Carbon Dioxide Anion Gap BUN Creatinine GFR Calculation BUN/Creatinine Ratio Glucose POC Glucose 336 H 193 H Calculated Osmolality Calcium Total Bilirubin AST ALT Alkaline Phosphatase Total Creatine Kinase CK-MB (CK-2) Troponin I B-Natriuretic Peptide Total Protein Albumin Globulin Albumin/Globulin Ratio b-Hydroxybutyric mmol/L
--- NOTE | 2016-12-21 13:29 | Hospitalist Progress Note ---
Assessment and Plan (1) Metabolic syndrome Status: Acute Assessment and plan: Patient will need to increase his aerobic activity and lose some weight. Also watch calories. Avoid overloading on carbohydrate calories. Patient is already a diabetic Current Visit: Yes (2) Congestive heart failure Status: Acute Assessment and plan: This is pending echocardiogram to characterize the congestive heart failure. Patient breathing is better. Current Visit: Yes (3) Diabetes Status: Chronic Assessment and plan: Control blood sugar. She is on medications have been continued in the hospital Current Visit: Yes (4) Hypertension Status: Chronic Assessment and plan: Patient now is accelerated hypertension was admitted with emergent hypertension. Need to bring down the blood pressure slowly target 130/80 Current Visit: Yes Hospitalist: Subjective Interval history: Patient has been seen interviewed and examined and chart has been reviewed offers no particular complaints at this time. States that on and off she has had some chest discomfort and shortness of breath. Admitted to the hospital with exacerbation of congestive heart failure shortness of breath morbidly obese lady history of hypertension and came in with hypertensive urgency blood pressure 237/127 now down to 171/86 to have some elevation of troponins. Echo has been done's report is pending need to repeat EKG in the morning; cardiology comments for today pending Exam - Constitutional Vitals: Period Temp Pulse Resp BP Sys/De Oliveira Pulse Ox Last 24 Hr 97.8 F-98.2 F 61-97 16-24 118-237/68-127 78-100 General appearance: morbidly obese - Head Head exam: Present: normocephalic, atraumatic - Eye Eye exam: Present: EOMI Pupils: Present: LESLY - ENT ENT exam: Present: normal exam, normal oropharynx - Respiratory Respiratory exam: Present: clear to auscultation bilaterally, other - Cardiovascular Cardiovascular exam: Present: regular rate and rhythm (No wheezing or rhonchi) - GI/Abdominal GI/Abdominal exam: Present: normal bowel sounds, soft - Extremities Exam Extremities exam: Present: full ROM - Neurological Exam Neurological exam: Present: alert, oriented X3, CN II-XII intact - Psychiatric Psychiatric exam: Present: normal affect, normal mood - Skin Skin exam: Present: normal color, warm, dry Results - Labs CBC & BMP: 12/21/16 04:54 12/21/16 04:54 Lab Results: I have reviewed the past 24 hour labs (Noted a slight elevation in creatinine to 1.2. BMP normal)
[2016-12-21] MEDS: diphenhydrAMINE CAP 25 MG CAPSULE PO PRN (14:34)
--- NOTE | 2016-12-21 19:12 | ECHO Report ---
Mirlande David Exam Date: 12/21/2016 07:40 Referring Physician: Technologist: Hansa Thompson RDCS Age: 51 Ht (in): 62 Wt (lb): 205 Gender: F Exam [facility]: [facility] Echo Indications: Dyspnea, unspecified, Heart failure, unspecified, IDDM, CAD with previous stent, Right AKA BP: 135 / 68 HR: 91 Rhythm: Sinus Technical Quality: Fair IMPRESSIONS Normal LV systolic function, ejection fraction 55%. Grade 1/4 diastolic dysfunction. Mild to moderate mitral regurgitation. Mild tricuspid regurgitation. Severe pulmonary hypertension with pulmonary artery pressure estimated at 74 mmHg. MEASUREMENTS (Male / Female) Normal Values 2D ECHO LV Diastolic Diameter PLAX 4.6 cm 4.2 - 5.9 / 3.9 - 5.3 cm LV Systolic Diameter PLAX 3.1 cm LV Fractional Shortening PLAX 32.2 % IVS Diastolic Thickness 0.9 cm 0.6 - 1.0 / 0.6 - 0.9 cm LVPW Diastolic Thickness 1.0 cm 0.6 - 1.0 / 0.6 - 0.9 cm RV Internal Dim ED PLAX 2.8 cm Aortic Root Diameter 3.2 cm LA Systolic Diameter LX 3.6 cm 3.0 - 4.0 / 2.7 - 3.8 cm DOPPLER TR Peak Velocity 401.0 cm/s TR Peak Gradient 64.3 mmHg FINDINGS Left Ventricle Normal left ventricular cavity size. Normal left ventricular wall thickness. Left ventricular ejection fraction is estimated at 55 %. Right Ventricle The right ventricle is normal in size and function. Right Atrium The right atrium is normal in size. Left Atrium The left atrium is normal in size. Mitral Valve Morphologically normal mitral valve. Mild mitral annular calcification. Mild-moderate mitral valve regurgitation. Aortic Valve Aortic valve sclerosis without stenosis or regurgitation. Tricuspid Valve Morphologically normal tricuspid valve. Trace to mild tricuspid valve regurgitation. Tricuspid regurgitation velocities suggest a PAP of 74 mmHg. Pulmonic Valve Morphologically normal pulmonic valve without significant stenosis. There is no pulmonic regurgitation. Pericardium Normal pericardium without effusion. Aorta Normal ascending aorta dimension. Florence Wilkins MD (Electronically Signed) Final Date: 21 December 2016 19:11
[2016-12-21] MEDS: ATORVASTATIN 80 MG TABLET PO SCH (21:59)
[2016-12-21] MEDS: GABAPENTIN 600 MG TABLET PO SCH (21:59)
[2016-12-21] MEDS: SERTRALINE 25 MG TABLET PO SCH (23:38)
[2016-12-21] MEDS: traZODone 50 MG TABLET PO SCH (23:39)
[2016-12-22] MEDS: KETOROLAC 30 MG/1 ML VIAL IV PRN (04:27)
[2016-12-22] MEDS: INSULIN LISPRO 100 UNIT/ML SUBCUT SCH ×3 (09:24→17:03)
[2016-12-22] MEDS: INSULIN REGULAR 100 UNIT/ML SUBCUT SCH ×4 (09:25→21:51)
[2016-12-22] MEDS: INSULIN GLARGINE 100 UNIT/ML SUBCUT SCH (09:25)
[2016-12-22] MEDS: DABIGATRAN 150 MG CAPSULE PO SCH ×2 (09:26→20:16)
[2016-12-22] MEDS: PANTOPRAZOLE 40 MG TABLET PO SCH (09:26)
[2016-12-22] MEDS: METHOCARBAMOL 500 MG TABLET PO SCH ×3 (09:26→20:16)
[2016-12-22] MEDS: ASPIRIN CHEW 81 MG TABLET PO SCH (09:26)
[2016-12-22] MEDS: CLOPIDOGREL 75 MG TABLET PO SCH (09:26)
[2016-12-22] MEDS: CARVEDILOL 6.25 MG TABLET PO SCH ×2 (09:26→17:03)
[2016-12-22] MEDS: cloNIDine 0.1 MG TABLET PO SCH ×2 (09:26→20:16)
[2016-12-22 11:50] LABS: Basophils % 0.3 % (0.0-0.8); Eosinophils # 0.3 10*3/uL (0.0-0.87); Eosinophils % 2.6 % (0.00-10.9); Hematocrit 34.8 VOL% (35.7-47.0); Hemoglobin 10.7 GM/DL (12.0-16.0); Immature Granulocytes % 0.6 %; Immature Granulocytes Absolute 0.06 #; Lymphocytes # 2.5 10*3/uL (1.4-4.0); Lymphocytes % 23.3 % (21.3-54.2); Mean Corpuscular HGB Conc 30.7 GM/DL (32-36); Mean Corpuscular Hemoglobin 28 PG (27-34); Mean Corpuscular Volume 89.9 FL (87-102); Mean Platelet Volume 10.5 FL (9.6-12.0); Monocytes # 0.6 10*3/uL (0.11-0.8); Monocytes % 5.4 % (1.7-12.7); Neutrophils # 7.4 10*3/uL (1.4-7.4); Neutrophils % 67.8 % (38.7-73.9); Platelet Count 259 T/CUMM (130-400); Red Blood Count 3.87 MC/CUMM (3.8-5.5); Red Cell Distribution Width 14.6 % (9.3-17.3); White Blood Count 10.9 T/CUMM (4-12)
--- NOTE | 2016-12-22 12:16 | Hospitalist Progress Note ---
Assessment and Plan (1) Metabolic syndrome Status: Acute Assessment and plan: Patient will need to increase his aerobic activity and lose some weight. Also watch calories. Avoid overloading on carbohydrate calories. Patient is already a diabetic Current Visit: Yes (2) Congestive heart failure Status: Acute Assessment and plan: Patient has mild diastolic dysfunction on echocardiogram left ventricular ejection fraction estimated 55%. She however has extremely high pulmonary pressures Current Visit: Yes (3) Diabetes Status: Chronic Assessment and plan: Control blood sugar. She is on medications have been continued in the hospital Current Visit: Yes (4) Hypertension Status: Chronic Assessment and plan: Patient now is accelerated hypertension was admitted with emergent hypertension. Need to bring down the blood pressure slowly target 130/80 Current Visit: Yes (5) Pulmonary hypertension Status: Acute Assessment and plan: Is not clear whether this is primary arterial hypertension or venous hypertension. Unconstrained with the fact that this is acute/subacute development of shortness of breath with this extent of pulmonary pressures of around 74 mmHg. Pulmonary embolism is in the differential diagnosis. I will therefore workup for this given the urgency of doing so. Patient will have a d- dimer was drawn PT PDT drawn if the d-dimer is high we will do a CTA evaluate for PE. Current Visit: Yes Hospitalist: Subjective Interval history: Patient has been seen interviewed and examined and chart has been reviewed. She still complaining of shortness of breath. This mostly with minimal exertion. Chest x-rays done at admission did show increased vascular markings and pulmonary bed cephalization. Echocardiogram done however showed ejection fraction of 55%. Left ventricular dimensions were normal right ventricular dimension and function were normal however the patient had extremely high right ventricular pressures of 74 mmHg. Left ventricular ejection fraction was estimated at 55% with minimal diastolic dysfunction rated at 1 out of 4. I reviewed the patient record I do not see much in terms of obstructive sleep apnea or any other obvious causes of pulmonary hypertension. The question remains therefore as to "why the shortness of breath and such elevated right- sided pressures?"; "PE?" Exam - Constitutional Vitals: Period Temp Pulse Resp BP Sys/De Oliveira Pulse Ox Last 24 Hr 96.7 F-97.2 F 59-62 18-20 118-147/66-78 94-98 General appearance: morbidly obese - Head Head exam: Present: normocephalic, atraumatic - Eye Eye exam: Present: EOMI Pupils: Present: LESLY - ENT ENT exam: Present: other (No obvious lesion) - Neck Neck exam: Present: normal inspection - Respiratory Respiratory exam: Present: clear to auscultation bilaterally, other (No wheezing no rhonchi however distant lung sounds) - Cardiovascular Cardiovascular exam: Present: regular rate and rhythm - GI/Abdominal GI/Abdominal exam: Present: normal bowel sounds, soft - Extremities Exam Extremities exam: Present: other (Right-sided amputation lower extremity) - Neurological Exam Neurological exam: Present: alert, oriented X3, CN II-XII intact - Psychiatric Psychiatric exam: Present: normal affect, normal mood - Skin Skin exam: Present: normal color, warm, dry Results - Labs CBC & BMP: 12/22/16 11:15 12/21/16 04:54 Lab Results: I have reviewed the past 24 hour labs
[2016-12-22 12:35] LABS: Calcium 8.5 MG/DL (8.5-10.1); Osmolality,Calculated 286.7 MOS/KG (273-304); Potassium 4.2 MMOL/L (3.5-5.1)
[2016-12-22 12:38] LABS: Risk Ratio 6.67; VLDL CHOLESTEROL 29.4 MG/DL
[2016-12-22 12:51] LABS: INR 1.3; PT Patient Result 13.9 SECS
[2016-12-22 12:52] LABS: Partial Thromboplastin Time 44.3 SECS (0-40)
[2016-12-22] MEDS: diphenhydrAMINE CAP 25 MG CAPSULE PO PRN (12:55)
--- NOTE | 2016-12-22 13:35 | Cardiology Progress Note ---
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 She reports that she had 2 stents placed at [facility] in 2014 and that she has coded in the past. I do not have her previous records at this time as she has been treated primarily at [facility]. She was admitted with SOB and cough. BNP only mildly elevated. December 22, 2016: Clinically she feels better. She is not having any chest discomfort currently, may have had some pressure last night. Breathing is improving. No new complaints. ASSESSMENT/PLAN: 1. SHORTNESS OF BREATH - Overall much improved. She has pulmonary hypertension on echo. Venous doppler was negative for DVT. PE will need to be ruled out. 2. CONGESTIVE HEART FAILURE - She denies a prior history of CHF. Echocardiogram is pending. BNP 547. Chest x-ray suggestive of CHF vs. pneumonia. She has been given a breathing treatment and started on IV Lasix BID and is feeling much better. Continue beta stephanie, aspirin, statin. Creatinine is mildly elevated at 1.2. If this doesn't worsen, would like to try to wean her from the clonidine and place her on SHEMAR. I am not really sure that she has significant congestive heart failure, if anything this is right-sided from pulmonary hypertension. 3. CORONARY ARTERY DISEASE - She reports that she had 2 stents placed at [facility] in 2014 but is unsure of her doctor's name. 4. PERIPHERAL ARTERY DISEASE - S/P right AKA. S/p left great toe and left pinky toe amputation. 5. HYPERTENSION - Blood pressure has been well controlled with occasional elevated readings. Home medications have been resumed. We will continue to monitor and adjust accordingly. 6. DIABETES - She has been started on accuchecks with sliding scale insulin. 7. GERD - Continue PPI. 8. MIGRAINES - Chronic, patient is allergic to triptans. 9. LOW BACK PAIN - Chronic. 10. FORMER SMOKER - Quit in 1999 after smoking for approximately 8 years. Exam (Progress Note) - Constitutional Vitals: Period Temp Pulse Resp BP Sys/De Oliveira Pulse Ox Last 24 Hr 96.7 F-97.8 F 59-65 18-20 118-181/66-93 94-98 Exam: General appearance: Pleasant and cooperative. Overweight, no acute distress. Head exam: Present: normal inspection, normocephalic, atraumatic. Absent: hematoma, laceration Eye exam: Present: EOMI. Absent: conjunctival injection, nystagmus, periorbital swelling, scleral icterus, laceration to eyelids Pupils: Present: PERRL. Absent: constricted, dilated, fixed, irregular, unequal ENT exam: Present: normal exam, normal external ear exam Neck exam: Present: normal inspection. Absent: lymphadenopathy, meningismus, tenderness, thyromegaly, carotid bruit Respiratory exam: Present: bibasilar rales posteriorly, otherwise clear to auscultation bilaterally. Absent: accessory muscle use, chest wall tenderness, rhonchi, wheezing. Cardiovascular exam: Present: regular rate and rhythm. Absent: gallop, JVD, rubs, murmur GI/Abdominal exam: Present: normal bowel sounds, soft. Absent: distended, firm , guarding, hernia, mass, tenderness, rebound. Extremities exam: Present: Right AKA, left great toe and left pinky toe missing from prior amputation. normal capillary refill. Upper extremity pulses 2+. Left Lower extremity pulse diminished. 1+ edema to LLE. Absent: calf tenderness Musculoskeletal: Present: No Fluid Collection, No Pain Back exam: Present: normal inspection. Absent: muscle spasm, vertebral tenderness Neurological exam: Present: alert, oriented X3, grossly intact without resting or essential tremor Psychiatric exam: Present: normal affect, normal mood Skin exam: Present: normal color, warm, dry, intact. Absent: cyanosis, diaphoretic, rash, urticaria Result/EKG - Labs CBC & BMP: 12/22/16 11:15 12/22/16 11:15 Lab Results: I have reviewed the past 24 hour labs Labs: Laboratory Results - last 24 hr 12/21/16 12/21/16 12/22/16 16:27 19:37 07:41 WBC RBC Hgb Hct MCV MCH MCHC RDW Plt Count MPV Neut % (Auto) Lymph % (Auto) [place] % (Auto) Eos % (Auto) Baso % (Auto) Neut # (Auto) Lymph # (Auto) [place] # (Auto) Eos # (Auto) Baso # (Auto) Immature Gran % Nucleated RBC % Immature Gran # Nucleated RBCs # Immature Plt Fraction INR PT Patient/Control Mix D-Dimer, Quantitative Circ Anticoag PTT Sodium Potassium Chloride Carbon Dioxide Anion Gap BUN Creatinine GFR Calculation BUN/Creatinine Ratio Glucose POC Glucose 193 H 134 H 211 H Calculated Osmolality Calcium Magnesium Triglycerides Cholesterol LDL Cholesterol VLDL Cholesterol HDL Cholesterol Heart Disease Risk Ratio 12/22/16 12/22/16 12/22/16 11:15 11:15 11:15 WBC 10.9 RBC 3.87 Hgb 10.7 L Hct 34.8 L MCV 89.9 MCH 28 MCHC 30.7 L RDW 14.6 Plt Count 259 MPV 10.5 Neut % (Auto) 67.8 Lymph % (Auto) 23.3 [place] % (Auto) 5.4 Eos % (Auto) 2.6 Baso % (Auto) 0.3 Neut # (Auto) 7.4 Lymph # (Auto) 2.5 [place] # (Auto) 0.6 Eos # (Auto) 0.3 Baso # (Auto) 0.0 Immature Gran % 0.6 Nucleated RBC % 0.0 Immature Gran # 0.06 Nucleated RBCs # 0.00 Immature Plt Fraction 0.0 INR PT Patient/Control Mix D-Dimer, Quantitative Circ Anticoag PTT Sodium 138 Potassium 4.2 Chloride 103 Carbon Dioxide 31 Anion Gap 8.2 BUN 28 H Creatinine 1.20 H GFR Calculation 72 BUN/Creatinine Ratio 23.00 H Glucose 211 H POC Glucose Calculated Osmolality 286.7 Calcium 8.5 Magnesium 2.0 Triglycerides 147 Cholesterol 160 LDL Cholesterol 107.0 VLDL Cholesterol 29.4 HDL Cholesterol 24 L Heart Disease Risk Ratio 6.67 12/22/16 12/22/16 12/22/16 11:15 11:15 11:41 WBC RBC Hgb Hct MCV MCH MCHC RDW Plt Count MPV Neut % (Auto) Lymph % (Auto) [place] % (Auto) Eos % (Auto) Baso % (Auto) Neut # (Auto) Lymph # (Auto) [place] # (Auto) Eos # (Auto) Baso # (Auto) Immature Gran % Nucleated RBC % Immature Gran # Nucleated RBCs # Immature Plt Fraction INR 1.3 PT Patient/Control Mix 13.9 D-Dimer, Quantitative 0.9 Circ Anticoag PTT 44.3 H Sodium Potassium Chloride Carbon Dioxide Anion Gap BUN Creatinine GFR Calculation BUN/Creatinine Ratio Glucose POC Glucose 192 H Calculated Osmolality Calcium Magnesium Triglycerides Cholesterol LDL Cholesterol VLDL Cholesterol HDL Cholesterol Heart Disease Risk Ratio
[2016-12-22] MEDS: FUROSEMIDE 40 MG/4 ML VIAL IV SCH ×3 (13:57→17:13)
--- NOTE | 2016-12-22 19:29 | CT Report ---
History: Elevated pulmonary artery pressures. Elevated d-dimer Date: 12/22/2016 Study: CT chest with IV contrast with pulmonary embolus technique Comparison exam: No previous similar study currently available for comparison Spiral CT sections were obtained through the lungs following the IV administration of 80 mL of Omnipaque 350 without immediate complication. Multiplanar reconstruction images are also evaluated. The CT exam was performed using one or more of the following dose reduction techniques: Automated exposure control, adjustment of the mA and/or kV according to patient size, or use of iterative reconstruction technique. Critical test result: Verbal report given to nurse Culp by telephone at 7:26 PM There is a small amount of weblike filling defect within secondary and tertiary branches of the right lower lobe pulmonary artery compatible with pulmonary thromboembolic disease. Since this has more of a weblike appearance, chronic PE is favored. No discrete filling defect is identified otherwise. There is no thoracic aortic aneurysm or dissection. There is some prominent coronary artery calcification involving the left anterior descending and left circumflex coronary arteries. There is mild bilateral pleural effusion. There is no significant pericardial effusion. There is a small amount of scattered groundglass infiltrate in the left upper lobe. There are some dependent atelectatic changes in the lower lobes. There is some diffuse thyroid enlargement. There is nonspecific mild subcarinal lymphadenopathy on the right, measuring 13 mm short axis diameter. There is no obvious acute abnormality in the partially visualized upper abdomen. Impression: There is evidence of a small amount of pulmonary embolic disease involving the right lower lobe secondary and tertiary branches, though the weblike nature of the filling defect is thought to be more consistent with chronic PE than acute PE. Trace bilateral pleural effusion Very mild left upper lung infiltrate which could represent some low-grade inflammatory infiltrate Mild atelectatic changes in the lung bases Coronary artery disease PROCEDURE INTERPRETED AT [facility] DEPARTMENT OF RADIOLOGY Final Report Signed by: Dr. Flora Vazquez
[2016-12-22] MEDS: SERTRALINE 25 MG TABLET PO SCH (20:16)
[2016-12-22] MEDS: traZODone 50 MG TABLET PO SCH (20:16)
[2016-12-22] MEDS: GABAPENTIN 600 MG TABLET PO SCH (20:17)
[2016-12-22] MEDS: ATORVASTATIN 80 MG TABLET PO SCH (20:17)
[2016-12-23 05:40] LABS: Basophils % 0.3 % (0.0-0.8); Eosinophils # 0.4 10*3/uL (0.0-0.87); Eosinophils % 3.1 % (0.00-10.9); Hematocrit 34.4 VOL% (35.7-47.0); Hemoglobin 10.5 GM/DL (12.0-16.0); Immature Granulocytes % 0.5 %; Immature Granulocytes Absolute 0.06 #; Lymphocytes # 3.1 10*3/uL (1.4-4.0); Lymphocytes % 25.9 % (21.3-54.2); Mean Corpuscular HGB Conc 30.5 GM/DL (32-36); Mean Corpuscular Hemoglobin 28 PG (27-34); Mean Corpuscular Volume 91.5 FL (87-102); Mean Platelet Volume 10.7 FL (9.6-12.0); Monocytes # 0.7 10*3/uL (0.11-0.8); Monocytes % 6.2 % (1.7-12.7); Neutrophils # 7.6 10*3/uL (1.4-7.4); Platelet Count 254 T/CUMM (130-400); Red Blood Count 3.76 MC/CUMM (3.8-5.5); Red Cell Distribution Width 14.5 % (9.3-17.3); White Blood Count 11.8 T/CUMM (4-12)
[2016-12-23 06:10] LABS: Calcium 8.8 MG/DL (8.5-10.1); Magnesium 2.1 MG/DL (1.8-2.4); Osmolality,Calculated 289.5 MOS/KG (273-304); Potassium 4.6 MMOL/L (3.5-5.1)
[2016-12-23] MEDS: PANTOPRAZOLE 40 MG TABLET PO SCH (08:23)
[2016-12-23] MEDS: DABIGATRAN 150 MG CAPSULE PO SCH ×2 (08:23→20:41)
[2016-12-23] MEDS: CLOPIDOGREL 75 MG TABLET PO SCH (08:23)
[2016-12-23] MEDS: ASPIRIN CHEW 81 MG TABLET PO SCH (08:23)
[2016-12-23] MEDS: CARVEDILOL 6.25 MG TABLET PO SCH ×2 (08:23→17:06)
[2016-12-23] MEDS: cloNIDine 0.1 MG TABLET PO SCH (08:23)
[2016-12-23] MEDS: METHOCARBAMOL 500 MG TABLET PO SCH ×3 (08:24→21:02)
[2016-12-23] MEDS: FUROSEMIDE 40 MG/4 ML VIAL IV SCH (08:24)
[2016-12-23] MEDS: INSULIN GLARGINE 100 UNIT/ML SUBCUT SCH (08:24)
[2016-12-23] MEDS: INSULIN LISPRO 100 UNIT/ML SUBCUT SCH ×3 (08:25→17:06)
[2016-12-23] MEDS: INSULIN REGULAR 100 UNIT/ML SUBCUT SCH ×4 (08:49→20:39)
[2016-12-23] MEDS: amLODIPine 2.5 MG TABLET PO SCH (12:38)
--- NOTE | 2016-12-23 12:38 | Cardiology Progress Note ---
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 She reports that she had 2 stents placed at [facility] in 2014 and that she has coded in the past. I do not have her previous records at this time as she has been treated primarily at [facility]. She was admitted with SOB and cough. BNP only mildly elevated. December 22, 2016: Clinically she feels better. She is not having any chest discomfort currently, may have had some pressure last night. Breathing is improving. No new complaints. December 23, 2016: She is not short of breath. She has some chest pressure on occasion, mainly when she is changing positions in the bed. It is reproducible on exam. ASSESSMENT/PLAN: 1. SHORTNESS OF BREATH - Overall much improved. She has pulmonary hypertension on echo. Venous doppler was negative for DVT. CT of the chest demonstrates chronic pulmonary embolism and possible pneumonia. I discussed the case with Dr. Barahona, he will treat for pneumonia. 2. CONGESTIVE HEART FAILURE - She denies a prior history of CHF. Echocardiogram is pending. BNP 547. Chest x-ray suggestive of CHF vs. pneumonia. She has been given a breathing treatment and started on IV Lasix BID and is feeling much better. Continue beta stephanie, aspirin, statin. Creatinine is mildly elevated at 1.2. If this doesn't worsen, would like to try to wean her from the clonidine and place her on SHEMAR. I am not really sure that she has significant congestive heart failure, if anything this is right-sided from pulmonary hypertension. 3. CORONARY ARTERY DISEASE - She reports that she had 2 stents placed at [facility] in 2014 but is unsure of her doctor's name. Her chest pain seems atypical, we will treat for costochondritis and can always consider stress testing if symptoms do not resolve. 4. PERIPHERAL ARTERY DISEASE - S/P right AKA. S/p left great toe and left pinky toe amputation. 5. HYPERTENSION - Blood pressure has been well controlled with occasional elevated readings. Home medications have been resumed. We will continue to monitor and adjust accordingly. I am going to switch her clonidine to Norvasc given her pulmonary hypertension. 6. DIABETES - She has been started on accuchecks with sliding scale insulin. 7. GERD - Continue PPI. 8. MIGRAINES - Chronic, patient is allergic to triptans. 9. LOW BACK PAIN - Chronic. 10. FORMER SMOKER - Quit in 1999 after smoking for approximately 8 years. 11. Pulmonary hypertension-chronicity is unknown, we will add Norvasc. Exam (Progress Note) - Constitutional Vitals: Period Temp Pulse Resp BP Sys/De Oliveira Pulse Ox Last 24 Hr 96.8 F-97.8 F 55-65 18-18 112-181/69-93 95-98 Exam: General appearance: Pleasant and cooperative. Overweight, no acute distress. Head exam: Present: normal inspection, normocephalic, atraumatic. Absent: hematoma, laceration Eye exam: Present: EOMI. Absent: conjunctival injection, nystagmus, periorbital swelling, scleral icterus, laceration to eyelids Pupils: Present: PERRL. Absent: constricted, dilated, fixed, irregular, unequal ENT exam: Present: normal exam, normal external ear exam Neck exam: Present: normal inspection. Absent: lymphadenopathy, meningismus, tenderness, thyromegaly, carotid bruit Respiratory exam: Present: bibasilar rales posteriorly, otherwise clear to auscultation bilaterally. Absent: accessory muscle use, chest wall tenderness, rhonchi, wheezing. Cardiovascular exam: Present: regular rate and rhythm. Absent: gallop, JVD, rubs, murmur GI/Abdominal exam: Present: normal bowel sounds, soft. Absent: distended, firm , guarding, hernia, mass, tenderness, rebound. Extremities exam: Present: Right AKA, left great toe and left pinky toe missing from prior amputation. normal capillary refill. Upper extremity pulses 2+. Left Lower extremity pulse diminished. 1+ edema to LLE. Absent: calf tenderness Musculoskeletal: Present: No Fluid Collection, No Pain Back exam: Present: normal inspection. Absent: muscle spasm, vertebral tenderness Neurological exam: Present: alert, oriented X3, grossly intact without resting or essential tremor Psychiatric exam: Present: normal affect, normal mood Skin exam: Present: normal color, warm, dry, intact. Absent: cyanosis, diaphoretic, rash, urticaria Result/EKG - Labs CBC & BMP: 12/23/16 05:33 12/23/16 05:33 Lab Results: I have reviewed the past 24 hour labs Labs: Laboratory Results - last 24 hr 12/22/16 12/22/16 12/22/16 11:15 11:15 11:15 WBC 10.9 RBC 3.87 Hgb 10.7 L Hct 34.8 L MCV 89.9 MCH 28 MCHC 30.7 L RDW 14.6 Plt Count 259 MPV 10.5 Neut % (Auto) 67.8 Lymph % (Auto) 23.3 [place] % (Auto) 5.4 Eos % (Auto) 2.6 Baso % (Auto) 0.3 Neut # (Auto) 7.4 Lymph # (Auto) 2.5 [place] # (Auto) 0.6 Eos # (Auto) 0.3 Baso # (Auto) 0.0 Immature Gran % 0.6 Nucleated RBC % 0.0 Immature Gran # 0.06 Nucleated RBCs # 0.00 Immature Plt Fraction 0.0 INR PT Patient/Control Mix D-Dimer, Quantitative Circ Anticoag PTT Sodium 138 Potassium 4.2 Chloride 103 Carbon Dioxide 31 Anion Gap 8.2 BUN 28 H Creatinine 1.20 H GFR Calculation 72 BUN/Creatinine Ratio 23.00 H Glucose 211 H POC Glucose Calculated Osmolality 286.7 Calcium 8.5 Magnesium 2.0 Triglycerides 147 Cholesterol 160 LDL Cholesterol 107.0 VLDL Cholesterol 29.4 HDL Cholesterol 24 L Heart Disease Risk Ratio 6.67 12/22/16 12/22/16 12/22/16 11:15 11:15 11:41 WBC RBC Hgb Hct MCV MCH MCHC RDW Plt Count MPV Neut % (Auto) Lymph % (Auto) [place] % (Auto) Eos % (Auto) Baso % (Auto) Neut # (Auto) Lymph # (Auto) [place] # (Auto) Eos # (Auto) Baso # (Auto) Immature Gran % Nucleated RBC % Immature Gran # Nucleated RBCs # Immature Plt Fraction INR 1.3 PT Patient/Control Mix 13.9 D-Dimer, Quantitative 0.9 Circ Anticoag PTT 44.3 H Sodium Potassium Chloride Carbon Dioxide Anion Gap BUN Creatinine GFR Calculation BUN/Creatinine Ratio Glucose POC Glucose 192 H Calculated Osmolality Calcium Magnesium Triglycerides Cholesterol LDL Cholesterol VLDL Cholesterol HDL Cholesterol Heart Disease Risk Ratio 12/22/16 12/22/16 12/23/16 15:39 20:30 05:33 WBC 11.8 RBC 3.76 L Hgb 10.5 L Hct 34.4 L MCV 91.5 MCH 28 MCHC 30.5 L RDW 14.5 Plt Count 254 MPV 10.7 Neut % (Auto) 64.0 Lymph % (Auto) 25.9 [place] % (Auto) 6.2 Eos % (Auto) 3.1 Baso % (Auto) 0.3 Neut # (Auto) 7.6 H Lymph # (Auto) 3.1 [place] # (Auto) 0.7 Eos # (Auto) 0.4 Baso # (Auto) 0.0 Immature Gran % 0.5 Nucleated RBC % 0.0 Immature Gran # 0.06 Nucleated RBCs # 0.00 Immature Plt Fraction 0.0 INR PT Patient/Control Mix D-Dimer, Quantitative Circ Anticoag PTT Sodium Potassium Chloride Carbon Dioxide Anion Gap BUN Creatinine GFR Calculation BUN/Creatinine Ratio Glucose POC Glucose 199 H 237 H Calculated Osmolality Calcium Magnesium Triglycerides Cholesterol LDL Cholesterol VLDL Cholesterol HDL Cholesterol Heart Disease Risk Ratio 12/23/16 12/23/16 05:33 08:13 WBC RBC Hgb Hct MCV MCH MCHC RDW Plt Count MPV Neut % (Auto) Lymph % (Auto) [place] % (Auto) Eos % (Auto) Baso % (Auto) Neut # (Auto) Lymph # (Auto) [place] # (Auto) Eos # (Auto) Baso # (Auto) Immature Gran % Nucleated RBC % Immature Gran # Nucleated RBCs # Immature Plt Fraction INR PT Patient/Control Mix D-Dimer, Quantitative Circ Anticoag PTT Sodium 139 Potassium 4.6 Chloride 103 Carbon Dioxide 30 Anion Gap 10.6 BUN 34 H Creatinine 1.40 H GFR Calculation 60 BUN/Creatinine Ratio 24.00 H Glucose 192 H POC Glucose 197 H Calculated Osmolality 289.5 Calcium 8.8 Magnesium 2.1 Triglycerides Cholesterol LDL Cholesterol VLDL Cholesterol HDL Cholesterol Heart Disease Risk Ratio - Diagnostic Findings Procedure: CT - chest: report reviewed by me
[2016-12-23 14:31] LABS: Apearance,Urine CLOUDY (Clear); Bacteria,Urine Occasional /HPF (Few); Bilirubin,Urine Negative (Negative); Blood, Urine Large mg/dL (Negative); Glucose,Urine (UA) Negative (Negative); Hyaline Casts,Urine 3 /LPF (0-3); Ketones,Urine Negative (Negative); Mucus,Urine Occasional /LPF (Occasional); Nitrite,Urine Negative (Negative); Protein,Urine 30 MG/DL; RBC,Urine 140 /HPF (0-4); Squamous Epithelial Cell,Urine Occasional /HPF (0-10); Urine Color Yellow (Yellow); Urine Specific Gravity 1.018 (1.001-1.035); Urine Urobilinogen < 2.0 EU/DL (0.2-1.0); WBC,Urine 52 /HPF (0-6)
--- NOTE | 2016-12-23 14:51 | Hospitalist Progress Note ---
Assessment and Plan (1) Metabolic syndrome Status: Acute Assessment and plan: Patient will need to increase his aerobic activity and lose some weight. Also watch calories. Avoid overloading on carbohydrate calories. Patient is already a diabetic Current Visit: Yes (2) Congestive heart failure Status: Acute Assessment and plan: Patient has mild diastolic dysfunction on echocardiogram left ventricular ejection fraction estimated 55%. She however has extremely high pulmonary pressures. CTA chest does reveal chronic appearing left-sided PE. There is a typical-looking infiltrate in the right upper lung. Patient started on oral doxycycline. She is afebrile does not look toxic. Current Visit: Yes (3) Diabetes Status: Chronic Assessment and plan: Control blood sugar. She is on medications have been continued in the hospital Current Visit: Yes (4) Hypertension Status: Chronic Assessment and plan: Patient now is accelerated hypertension was admitted with emergent hypertension. Need to bring down the blood pressure slowly target 130/80 Current Visit: Yes (5) Pulmonary hypertension Status: Acute Assessment and plan: Is not clear whether this is primary arterial hypertension or venous hypertension. Unconstrained with the fact that this is acute/subacute development of shortness of breath with this extent of pulmonary pressures of around 74 mmHg. CTA done yesterday reveals a chronic looking pulmonary emboli involving the left lung. She has been on oral anticoagulation. Current Visit: Yes Hospitalist: Subjective Interval history: Patient has been seen interviewed and examined and chart has been reviewed. Is complaining of some shortness of breath with activity. He is however approximating status of how she is at home. I was going to send him home with a complaint of chest pain and concern of the data power consultant is that she should spend another day here and see if something else does not develop. I checked her for PE yesterday found was a chronic PE and possibly an infiltrate in the right upper lung. She came in with a white count that is now normalizing. Because of the cough that she has a complaint of chest pain and shortness of breath I will put her on a doxycycline regimen for 10 days to cover for both gram-positive and atypicals. Exam - Constitutional Vitals: Period Temp Pulse Resp BP Sys/De Oliveira Pulse Ox Last 24 Hr 96.8 F-97.5 F 55-63 18-18 112-161/69-91 95-98 General appearance: morbidly obese - Head Head exam: Present: normocephalic, atraumatic - Eye Eye exam: Present: EOMI Pupils: Present: LESLY - Respiratory Respiratory exam: Present: clear to auscultation bilaterally, other (Distant lung sounds however) - Cardiovascular Cardiovascular exam: Present: regular rate and rhythm - GI/Abdominal GI/Abdominal exam: Present: normal bowel sounds, soft, other (Rotund and obese abdomen) - Extremities Exam Extremities exam: Present: full ROM, other (History of right-side AKA) - Neurological Exam Neurological exam: Present: alert, oriented X3, CN II-XII intact - Psychiatric Psychiatric exam: Present: normal affect, normal mood - Skin Skin exam: Present: warm, dry Results - Labs CBC & BMP: 12/23/16 05:33 12/23/16 05:33 Lab Results: I have reviewed the past 24 hour labs (Noted creatinine 1.4 stable)
[2016-12-23] MEDS: FUROSEMIDE 40 MG TABLET PO SCH (15:34)
[2016-12-23] MEDS: LEVOFLOXACIN 500 MG TABLET PO SCH (15:34)
[2016-12-23] MEDS: GABAPENTIN 600 MG TABLET PO SCH (20:40)
[2016-12-23] MEDS: ATORVASTATIN 80 MG TABLET PO SCH (20:40)
[2016-12-23] MEDS: SERTRALINE 25 MG TABLET PO SCH (20:41)
[2016-12-23] MEDS: traZODone 50 MG TABLET PO SCH (20:41)
[2016-12-23] MEDS ORDERED: DOXYCYCLINE HYCLATE 100 MG CAPSULE PO SCH (21:00)
[2016-12-24 06:19] LABS: Basophils % 0.3 % (0.0-0.8); Eosinophils # 0.3 10*3/uL (0.0-0.87); Eosinophils % 2.8 % (0.00-10.9); Hematocrit 34.4 VOL% (35.7-47.0); Hemoglobin 10.6 GM/DL (12.0-16.0); Immature Granulocytes % 0.6 %; Immature Granulocytes Absolute 0.07 #; Lymphocytes # 2.8 10*3/uL (1.4-4.0); Lymphocytes % 23.1 % (21.3-54.2); Mean Corpuscular HGB Conc 30.8 GM/DL (32-36); Mean Corpuscular Hemoglobin 28 PG (27-34); Mean Platelet Volume 11.2 FL (9.6-12.0); Monocytes # 0.8 10*3/uL (0.11-0.8); Monocytes % 6.2 % (1.7-12.7); Neutrophils # 8.2 10*3/uL (1.4-7.4); Platelet Count 257 T/CUMM (130-400); Red Blood Count 3.78 MC/CUMM (3.8-5.5); Red Cell Distribution Width 14.5 % (9.3-17.3); White Blood Count 12.2 T/CUMM (4-12)
[2016-12-24 06:57] LABS: Calcium 8.2 MG/DL (8.5-10.1); Magnesium 2.2 MG/DL (1.8-2.4); Osmolality,Calculated 293.4 MOS/KG (273-304); Potassium 4.9 MMOL/L (3.5-5.1)
[2016-12-24] MEDS: INSULIN REGULAR 100 UNIT/ML SUBCUT SCH ×2 (09:18→13:03)
[2016-12-24] MEDS: INSULIN LISPRO 100 UNIT/ML SUBCUT SCH ×2 (09:19→13:03)
[2016-12-24] MEDS: FUROSEMIDE 40 MG TABLET PO SCH (09:20)
[2016-12-24] MEDS: ASPIRIN CHEW 81 MG TABLET PO SCH (09:20)
[2016-12-24] MEDS: amLODIPine 2.5 MG TABLET PO SCH (09:21)
[2016-12-24] MEDS: PANTOPRAZOLE 40 MG TABLET PO SCH (09:21)
[2016-12-24] MEDS: METHOCARBAMOL 500 MG TABLET PO SCH (09:21)
[2016-12-24] MEDS: CLOPIDOGREL 75 MG TABLET PO SCH (09:21)
[2016-12-24] MEDS: LEVOFLOXACIN 500 MG TABLET PO SCH (09:21)
[2016-12-24] MEDS: DABIGATRAN 150 MG CAPSULE PO SCH (09:21)
[2016-12-24] MEDS: CARVEDILOL 6.25 MG TABLET PO SCH (09:22)
[2016-12-24] MEDS: INSULIN GLARGINE 100 UNIT/ML SUBCUT SCH (09:27)
--- NOTE | 2016-12-24 10:54 | Discharge Summary ---
<Jim Barahona - Last Filed: 12/24/16 11:05> Hospital Course - Hospital Course Hospital Course: Ms David is a 51 y/o black female presented to ED on 12/21/16 by EMS with c/o SOB with a.m. onset. Pt reported that she was seen by her PCP yesterday and was given a steroid shot as the treatment for a sinus infection. She stated that after she left the clinic and began to lay down, she became extremely SOB and began to vomit. Pt has a right BKA noted and reports that she coded in 2013 and woke up to her right leg being amputated because of possible blood clot. At time of exam in the ED, pt's blood pressure was 221/148. No other complaints were reported to ED. Past medical history significant for diabetes, migraines, lower back pain, coronary artery disease, reflux and peripheral artery disease. She reported feeling a little bit better after breathing treatment in the emergency room and received Lasix. She was admitted to Hospital services 12/21/16. Cardiology was consulted. Cardiology assessment and Plan: ASSESSMENT/PLAN: 1. SHORTNESS OF BREATH - Overall much improved. She has pulmonary hypertension on echo. Venous doppler was negative for DVT. CT of the chest demonstrates chronic pulmonary embolism and possible pneumonia. I discussed the case with Dr. Barahona, he will treat for pneumonia. 2. CONGESTIVE HEART FAILURE - She denies a prior history of CHF. Echocardiogram report below. BNP 547. Chest x-ray suggestive of CHF vs. pneumonia. She has been given a breathing treatment and started on IV Lasix BID and is feeling much better. Continue beta stephanie, aspirin, statin. Creatinine is mildly elevated at 1.2. If this doesn't worsen, would like to try to wean her from the clonidine and place her on SHEMAR. I am not really sure that she has significant congestive heart failure, if anything this is right-sided from pulmonary hypertension. 3. CORONARY ARTERY DISEASE - She reports that she had 2 stents placed at [facility] in 2014 but is unsure of her doctor's name. Her chest pain seems atypical, we will treat for costochondritis and can always consider stress testing if symptoms do not resolve. 4. PERIPHERAL ARTERY DISEASE - S/P right AKA. S/p left great toe and left pinky toe amputation. 5. HYPERTENSION - Blood pressure has been well controlled with occasional elevated readings. Home medications have been resumed. We will continue to monitor and adjust accordingly. I am going to switch her clonidine to Norvasc given her pulmonary hypertension. 6. DIABETES - She has been started on accuchecks with sliding scale insulin. 7. GERD - Continue PPI. 8. MIGRAINES - Chronic, patient is allergic to triptans. 9. LOW BACK PAIN - Chronic. 10. FORMER SMOKER - Quit in 1999 after smoking for approximately 8 years. 11. Pulmonary hypertension-chronicity is unknown, we will add Norvasc. ECHO resulted as: IMPRESSIONS Normal LV systolic function, ejection fraction 55%. Grade 1/4 diastolic dysfunction. Mild to moderate mitral regurgitation. Mild tricuspid regurgitation. Severe pulmonary hypertension with pulmonary artery pressure estimated at 74 mmHg. Venous doppler showed no DVT. CT resulted: Impression: There is evidence of a small amount of pulmonary embolic disease involving the right lower lobe secondary and tertiary branches, though the weblike nature of the filling defect is thought to be more consistent with chronic PE than acute PE. Today: 12/24/16 - Patient is feeling much better and will be discharged home today. She will need to follow up with her primary care physician in 1-2 weeks. She will to continue to increase her aerobic activity and while watching calorie intake. Monitor blood sugar levels. She will continue antibiotic therapy (Levaquin) by mouth for pneumonia (related to right lung infiltrates). She will continue discussed medications. Diagnosis - Discharge Diagnosis (1) Metabolic syndrome Status: Acute (2) Congestive heart failure Status: Acute (3) Diabetes Status: Chronic (4) Hypertension Status: Chronic (5) Pulmonary hypertension Status: Acute Discharge Plan - Discharge Data Disposition: Disch To Home/Self Care Condition at Discharge: Stable Discharge Diet: diabetic diet, heart healthy Activity: resume usual activities as tolerated Hygiene: no restrictions Weight Bearing at Discharge: weight bear as tolerated Driving: not until seen by doctor Contact your physician if you experience:: fever over 101, Nausea/Vomiting, Shortness of breath, pain uncontrolled by pain medications - Discharge Medications New Levofloxacin Tab [Levaquin Tab] 500 mg PO DAILY #4 tablet amLODIPine [Norvasc] 2.5 mg PO DAILY #30 tablet Aspirin Chew Tab 81 mg PO DAILY #30 tablet Continue Sertraline [Zoloft] 25 mg PO BEDTIME Promethazine Tab [Phenergan Tab] 25 mg PO TID PRN PRN Reason: Nausea Pantoprazole Sodium [Protonix] 40 mg PO DAILY Insulin Glargine,Hum.rec.anlog [Lantus SoloStar] 43 unit SUBCUT DAILY Insulin Aspart [NovoLOG FlexPen] 17 unit SUBCUT TID Docusate Sodium [Stool Softener] 100 mg PO BID PRN PRN Reason: Constipation Gabapentin 1,200 mg PO BEDTIME Dabigatran [Pradaxa] 150 mg PO BID cloNIDine HCl [Clonidine HCl] 0.1 mg PO BID Clopidogrel [Plavix] 75 mg PO DAILY Atorvastatin [Lipitor] 80 mg PO BEDTIME Aspirin [Ecotrin] 81 mg PO DAILY traZODone [Desyrel] 50 mg PO BEDTIME Methocarbamol Tab [Robaxin Tab] 500 mg PO TID Furosemide Tab [Lasix Tab] 40 mg PO DAILY Carvedilol [Coreg] 6.25 mg PO BID - Follow Up or Referral - Forms/Instructions Exam - Constitutional Vitals: Period Temp Pulse Resp BP Sys/De Oliveira Pulse Ox Last 24 Hr 97.1 F-98.6 F 55-68 18-20 103-148/56-75 92-99 General appearance: morbidly obese - Head Head exam: Present: normocephalic, atraumatic - ENT ENT exam: Present: normal exam - Neck Neck exam: Present: normal inspection - Respiratory Respiratory exam: Present: clear to auscultation bilaterally, other (Distant lung sounds lung sounds however no wheezing no rhonchi) - Cardiovascular Cardiovascular exam: Present: regular rate and rhythm - GI/Abdominal GI/Abdominal exam: Present: other (Obese abdomen no guarding positive bowel sounds) - Extremities Exam Extremities exam: Present: other (Right-sided AKA) - Neurological Exam Neurological exam: Present: alert, oriented X3, CN II-XII intact - Psychiatric Psychiatric exam: Present: normal affect, normal mood - Skin Skin exam: Present: normal color, warm, dry Discharge Results Procedures and tests throughout hospitalization: Pending Orders 12/23/16 Urine Culture Routine Labs on day of discharge: Labs from last 24 hours 12/24/16 12/24/16 12/24/16 07:26 05:50 05:19 WBC RBC Hgb Hct MCV MCH MCHC RDW Plt Count MPV Neut % (Auto) Lymph % (Auto) [place] % (Auto) Eos % (Auto) Baso % (Auto) Neut # (Auto) Lymph # (Auto) [place] # (Auto) Eos # (Auto) Baso # (Auto) Immature Gran % Nucleated RBC % Immature Gran # Nucleated RBCs # Immature Plt Fraction Sodium 140 Potassium 4.9 Chloride 105 Carbon Dioxide 24 Anion Gap 15.9 H BUN 44 H D Creatinine 1.50 H GFR Calculation 55 BUN/Creatinine Ratio 29.00 H Glucose 172 H POC Glucose 215 H 174 H Calculated Osmolality 293.4 Calcium 8.2 L Magnesium 2.2 Urine Color Urine Appearance Urine pH Ur Specific [place] Urine Protein Urine Glucose (UA) Urine Ketones Urine Blood Urine Nitrate Urine Bilirubin Urine Urobilinogen Urine Leukocytes Urine RBC Urine WBC Urine WBC Clumps Ur Squamous Epith Cells Urine Bacteria Hyaline Casts Urine Mucus Ur Culture Indicated? 12/24/16 12/23/16 12/23/16 05:19 20:31 16:20 WBC 12.2 H RBC 3.78 L Hgb 10.6 L Hct 34.4 L MCV 91.0 MCH 28 MCHC 30.8 L RDW 14.5 Plt Count 257 MPV 11.2 Neut % (Auto) 67.0 Lymph % (Auto) 23.1 [place] % (Auto) 6.2 Eos % (Auto) 2.8 Baso % (Auto) 0.3 Neut # (Auto) 8.2 H Lymph # (Auto) 2.8 [place] # (Auto) 0.8 Eos # (Auto) 0.3 Baso # (Auto) 0.0 Immature Gran % 0.6 Nucleated RBC % 0.0 Immature Gran # 0.07 Nucleated RBCs # 0.00 Immature Plt Fraction 0.0 Sodium Potassium Chloride Carbon Dioxide Anion Gap BUN Creatinine GFR Calculation BUN/Creatinine Ratio Glucose POC Glucose 240 H 146 H Calculated Osmolality Calcium Magnesium Urine Color Urine Appearance Urine pH Ur Specific [place] Urine Protein Urine Glucose (UA) Urine Ketones Urine Blood Urine Nitrate Urine Bilirubin Urine Urobilinogen Urine Leukocytes Urine RBC Urine WBC Urine WBC Clumps Ur Squamous Epith Cells Urine Bacteria Hyaline Casts Urine Mucus Ur Culture Indicated? 12/23/16 12/23/16 14:22 12:11 WBC RBC Hgb Hct MCV MCH MCHC RDW Plt Count MPV Neut % (Auto) Lymph % (Auto) [place] % (Auto) Eos % (Auto) Baso % (Auto) Neut # (Auto) Lymph # (Auto) [place] # (Auto) Eos # (Auto) Baso # (Auto) Immature Gran % Nucleated RBC % Immature Gran # Nucleated RBCs # Immature Plt Fraction Sodium Potassium Chloride Carbon Dioxide Anion Gap BUN Creatinine GFR Calculation BUN/Creatinine Ratio Glucose POC Glucose 257 H Calculated Osmolality Calcium Magnesium Urine Color Yellow Urine Appearance Cloudy Urine pH 5.0 Ur Specific [place] 1.018 Urine Protein 30 Urine Glucose (UA) Negative Urine Ketones Negative Urine Blood Large Urine Nitrate Negative Urine Bilirubin Negative Urine Urobilinogen < 2.0 H Urine Leukocytes Moderate H Urine RBC 140 Urine WBC 52 Urine WBC Clumps Moderate Ur Squamous Epith Cells Occasional Urine Bacteria Occasional Hyaline Casts 3 Urine Mucus Occasional Ur Culture Indicated? Results to follow Preliminary micro results at discharge 12/23/16 Unknown Urine Culture - Preliminary Urine,Voided No Growth at 24 hours. DS: Provider Date of admission: 12/21/16 01:17 Primary care physician: . No PCP Attending physician on admission: Miguel Cardenas MD Consults: 12/21/16 01:05 Consult to Physician [CONS] Routine Comment: Consulting Provider: Cardiology - [facility] Consult to Specialist Group: Cardiology When should Consulting Provider be notified: In am Person Notified: alex Date Notified: 12/21/16 Time Notified: 07:40 Discharging clinician: Jim Barahona MD <Carol Soto - Last Filed: 12/24/16 11:50> Hospital Course - Time spent with patient Time with patient DS: Less than 30 minutes
[2016-12-24 13:06] VITALS: BP 188/86
[2016-12-25] MEDS ORDERED: LEVOFLOXACIN 500 MG TABLET PO SCH (09:00)
== END 2016-12-24 13:54 | disposition home or self-care (01) | DRG 291 ==
LOC: EDUNIT# → EDBD → N.ED 22:36 → N.EDINP 12-21 01:17 → SUATTDRO 12-21 01:17 → N.TELES 12-21 01:52
PROVIDERS: ADMIT Internal Medicine; ATTEND Internal Medicine Infectious Disease

== ENCOUNTER 2017-04-14 13:07 | Inpatient (IN) ==
[2017-04-14 15:30] LABS: Basophils # 0.1 10*3/uL (0.0-0.2); Basophils % 0.4 % (0.0-0.8); Eosinophils # 0.2 10*3/uL (0.0-0.87); Eosinophils % 1.2 % (0.00-10.9); Hematocrit 32.2 VOL% (35.7-47.0); Immature Granulocytes % 0.5 %; Immature Granulocytes Absolute 0.07 #; Lymphocytes # 3.1 10*3/uL (1.4-4.0); Lymphocytes % 23.5 % (21.3-54.2); Mean Corpuscular HGB Conc 31.1 GM/DL (32-36); Mean Corpuscular Hemoglobin 28 PG (27-34); Mean Corpuscular Volume 89.9 FL (87-102); Mean Platelet Volume 10.3 FL (9.6-12.0); Monocytes # 0.7 10*3/uL (0.11-0.8); NRBC # 0.04 10*3/uL; Neutrophils # 9.1 10*3/uL (1.4-7.4); Neutrophils % 69.4 % (38.7-73.9); Platelet Count 231 T/CUMM (130-400); Red Blood Count 3.58 MC/CUMM (3.8-5.5); Red Cell Distribution Width 16.4 % (9.3-17.3); White Blood Count 13.1 T/CUMM (4-12)
[2017-04-14 15:41] LABS: INR 1.3; PT Patient Result 13.2 SECS; Partial Thromboplastin Time 32.2 SECS (0-40)
[2017-04-14 15:45] LABS: Apearance,Urine CLEAR (Clear); Bilirubin,Urine Negative (Negative); Blood, Urine Small mg/dL (Negative); Glucose,Urine (UA) Negative (Negative); Ketones,Urine 5 mg/dL (Negative); Nitrite,Urine Negative (Negative); Protein,Urine >=500 MG/DL; RBC,Urine 7 /HPF (0-4); Squamous Epithelial Cell,Urine Occasional /HPF (0-10); Urine Color Yellow (Yellow); Urine Specific Gravity 1.014 (1.001-1.035); Urine Urobilinogen < 2.0 EU/DL (0.2-1.0); WBC,Urine 2 /HPF (0-6)
[2017-04-14 16:01] LABS: Albumin 2.9 G/DL (3.4-5.0); Bilirubin,Total 0.4 MG/DL (0.2-1.0); Calcium 8.6 MG/DL (8.5-10.1); Osmolality,Calculated 286.8 MOS/KG (273-304); Total Protein 6.3 G/DL (6.4-8.3)
[2017-04-14] MEDS ORDERED: SODIUM CHLORIDE 0.9% 1,000 ML IV PRN (19:53)
[2017-04-14] MEDS ORDERED: hydrALAZINE 20 MG/1 ML VIAL IV PRN (20:32)
[2017-04-14 21:14] LABS: Hematocrit 28.3 VOL% (35.7-47.0); Hemoglobin 8.8 GM/DL (12.0-16.0)
[2017-04-14] MEDS: IDARUCIZUMAB IV SCH ×2 (21:14→22:14)
[2017-04-14] MEDS: SODIUM CHLORIDE 0.9% 1,000 ML IV SCH (21:14)
[2017-04-14] MEDS: cloNIDine 0.1 MG TABLET PO SCH (21:14)
[2017-04-14] MEDS: MORPHINE 2 MG/1 ML SYRINGE IV PRN (21:14)
[2017-04-14] MEDS: CARVEDILOL 6.25 MG TABLET PO SCH (21:15)
[2017-04-14] MEDS: metroNIDAZOLE INJ 500 MG in PREMIX 1 EACH IV SCH (21:15)
[2017-04-14] MEDS: PANTOPRAZOLE 40 MG VIAL IV SCH (21:15)
[2017-04-14] MEDS: LEVOFLOXACIN INJ 750 MG in PREMIX 1 EACH IV SCH (22:48)
[2017-04-15 01:21] LABS: Hematocrit 24.7 VOL% (35.7-47.0); Hemoglobin 7.6 GM/DL (12.0-16.0)
[2017-04-15] MEDS ORDERED: SODIUM CHLORIDE 0.9% 1,000 ML IV PRN (01:32)
[2017-04-15] MEDS: MORPHINE 2 MG/1 ML SYRINGE IV PRN ×5 (01:59→23:05)
[2017-04-15] MEDS: metroNIDAZOLE INJ 500 MG in PREMIX 1 EACH IV SCH ×3 (05:38→21:30)
[2017-04-15] MEDS: SODIUM CHLORIDE 0.9% 1,000 ML IV SCH ×3 (07:46→17:50)
[2017-04-15] MEDS: CARVEDILOL 6.25 MG TABLET PO SCH ×2 (08:07→21:32)
[2017-04-15] MEDS: cloNIDine 0.1 MG TABLET PO SCH ×2 (08:07→21:31)
[2017-04-15] MEDS: PANTOPRAZOLE 40 MG VIAL IV SCH ×2 (08:07→21:32)
[2017-04-15] MEDS: ISOSORBIDE MONONITRATE 30 MG TABLET PO SCH (08:07)
[2017-04-15] MEDS: POLYETHYLENE GLYCOL POWDER 17 GM PACK PO SCH ×4 (08:11→21:33)
[2017-04-15 10:30] LABS: Hematocrit 35.1 VOL% (35.7-47.0)
[2017-04-15] MEDS: ONDANSETRON 4 MG/2 ML VIAL IV PRN (13:16)
[2017-04-15 14:19] LABS: Hematocrit 35.5 VOL% (35.7-47.0); Hemoglobin 11.5 GM/DL (12.0-16.0)
[2017-04-15] MEDS: LEVOFLOXACIN INJ 750 MG in PREMIX 1 EACH IV SCH (21:31)
[2017-04-16] MEDS: SODIUM CHLORIDE 0.9% 1,000 ML IV SCH ×4 (01:30→23:10)
[2017-04-16] MEDS: ONDANSETRON 4 MG/2 ML VIAL IV PRN ×3 (03:19→20:24)
[2017-04-16 04:50] LABS: Basophils % 0.3 % (0.0-0.8); Eosinophils # 0.3 10*3/uL (0.0-0.87); Eosinophils % 2.7 % (0.00-10.9); Hematocrit 34.8 VOL% (35.7-47.0); Hemoglobin 10.8 GM/DL (12.0-16.0); Immature Granulocytes % 0.7 %; Immature Granulocytes Absolute 0.08 #; Lymphocytes # 1.4 10*3/uL (1.4-4.0); Lymphocytes % 12.5 % (21.3-54.2); Mean Corpuscular Hemoglobin 29 PG (27-34); Mean Platelet Volume 11.1 FL (9.6-12.0); Monocytes # 0.9 10*3/uL (0.11-0.8); Monocytes % 8.3 % (1.7-12.7); Neutrophils # 8.5 10*3/uL (1.4-7.4); Neutrophils % 75.5 % (38.7-73.9); Platelet Count 189 T/CUMM (130-400); Red Blood Count 3.74 MC/CUMM (3.8-5.5); Red Cell Distribution Width 15.7 % (9.3-17.3); White Blood Count 11.3 T/CUMM (4-12)
[2017-04-16] MEDS: metroNIDAZOLE INJ 500 MG in PREMIX 1 EACH IV SCH ×3 (04:52→21:46)
[2017-04-16 05:10] LABS: Calcium 7.9 MG/DL (8.5-10.1); Potassium 4.3 MMOL/L (3.5-5.1)
[2017-04-16] MEDS: cloNIDine 0.1 MG TABLET PO SCH ×2 (08:40→21:50)
[2017-04-16] MEDS: PANTOPRAZOLE 40 MG VIAL IV SCH ×2 (08:40→21:49)
[2017-04-16] MEDS: CARVEDILOL 6.25 MG TABLET PO SCH ×2 (08:40→21:50)
[2017-04-16] MEDS: POLYETHYLENE GLYCOL POWDER 17 GM PACK PO SCH ×4 (08:40→22:57)
[2017-04-16] MEDS: ISOSORBIDE MONONITRATE 30 MG TABLET PO SCH (08:41)
[2017-04-16] MEDS ORDERED: ZINC OXIDE PASTE 113 GM TUBE TOP PRN (13:47)
[2017-04-16] MEDS ORDERED: traZODone 50 MG TABLET PO SCH (21:00)
[2017-04-16] MEDS ORDERED: ATORVASTATIN 80 MG TABLET PO SCH (21:00)
[2017-04-16] MEDS ORDERED: GABAPENTIN 600 MG TABLET PO SCH (21:00)
[2017-04-16] MEDS: LEVOFLOXACIN INJ 750 MG in PREMIX 1 EACH IV SCH (22:56)
[2017-04-16] MEDS: DANTROLENE 25 MG CAPSULE PO SCH (23:15)
[2017-04-17] MEDS: MORPHINE 2 MG/1 ML SYRINGE IV PRN (00:40)
[2017-04-17] MEDS: SODIUM CHLORIDE 0.9% 1,000 ML IV SCH ×3 (02:35→14:29)
[2017-04-17] MEDS: metroNIDAZOLE INJ 500 MG in PREMIX 1 EACH IV SCH ×2 (06:42→14:25)
[2017-04-17 07:31] LABS: Basophils % 0.3 % (0.0-0.8); Eosinophils # 0.2 10*3/uL (0.0-0.87); Eosinophils % 1.9 % (0.00-10.9); Hematocrit 34.1 VOL% (35.7-47.0); Hemoglobin 10.4 GM/DL (12.0-16.0); Immature Granulocytes % 0.6 %; Immature Granulocytes Absolute 0.07 #; Lymphocytes # 1.3 10*3/uL (1.4-4.0); Lymphocytes % 11.8 % (21.3-54.2); Mean Corpuscular HGB Conc 30.5 GM/DL (32-36); Mean Corpuscular Hemoglobin 29 PG (27-34); Mean Corpuscular Volume 94.2 FL (87-102); Monocytes # 1.1 10*3/uL (0.11-0.8); Neutrophils # 8.4 10*3/uL (1.4-7.4); Neutrophils % 75.4 % (38.7-73.9); Platelet Count 195 T/CUMM (130-400); Red Blood Count 3.62 MC/CUMM (3.8-5.5); White Blood Count 11.2 T/CUMM (4-12)
[2017-04-17 07:45] LABS: INR 1.1; PT Patient Result 11.6 SECS
[2017-04-17 07:58] LABS: Calcium 8.2 MG/DL (8.5-10.1); Osmolality,Calculated 283.3 MOS/KG (273-304); Potassium 4.3 MMOL/L (3.5-5.1)
[2017-04-17] MEDS: CARVEDILOL 6.25 MG TABLET PO SCH (08:56)
[2017-04-17] MEDS: ISOSORBIDE MONONITRATE 30 MG TABLET PO SCH (08:56)
[2017-04-17] MEDS: cloNIDine 0.1 MG TABLET PO SCH (08:56)
[2017-04-17] MEDS: POLYETHYLENE GLYCOL POWDER 17 GM PACK PO SCH ×2 (08:57→14:25)
[2017-04-17] MEDS: PANTOPRAZOLE 40 MG VIAL IV SCH (08:57)
[2017-04-17] MEDS: DANTROLENE 25 MG CAPSULE PO SCH (08:57)
[2017-04-17] MEDS ORDERED: VENLAFAXINE XR 75 MG CAPSULE PO SCH (09:00)
[2017-04-17 11:12] VITALS: BP 155/76
== END 2017-04-17 16:24 | disposition home health service (06) | DRG 378 ==
LOC: N.ED 13:07 → N.EDINP 17:23 → SUPCPDRO 17:23 → N.EDINP 19:10 → N.CC 20:42 → N.5E 04-16 19:59
PROVIDERS: ADMIT Internal Medicine Geriatric Medicine; ATTEND Internal Medicine Geriatric Medicine

== ENCOUNTER 2017-11-25 22:22 | Inpatient (IN) ==
[2017-11-25] MEDS ORDERED: MORPHINE 4 MG/1 ML VIAL IV STA (22:51)
[2017-11-25] MEDS ORDERED: NITROGLYCERIN 2% OINT 1 INCH/GM PACK TOP STA (22:51)
[2017-11-25] MEDS ORDERED: FUROSEMIDE 100 MG/10 ML VIAL IV STA (22:51)
[2017-11-25] MEDS ORDERED: methylPREDNISolone SOD SUC 125 MG/2 ML VIAL IV STA (22:51)
[2017-11-25] MEDS ORDERED: ONDANSETRON 4 MG/2 ML VIAL IV STA (22:51)
[2017-11-25] MEDS ORDERED: ASPIRIN 325 MG TABLET PO STA (22:51)
[2017-11-25] MEDS ORDERED: ALBUTEROL 2.5 MG/3 ML NEB RESP TX SCH (23:00)
[2017-11-25 23:46] LABS: Allen Test Positive
[2017-11-25 23:52] LABS: ABG HCO3 31.3 MMOL/L (20-26); ABG Oxygen Saturation 91.3 % (95-100); ABG PH 7.373 (7.35-7.45); ABG PO2 69.7 MM HG (80-95)
[2017-11-26 00:13] LABS: PT Patient Result 10.1 SECS
[2017-11-26 00:25] LABS: Albumin 2.8 G/DL (3.4-5.0); Bilirubin,Total 0.4 MG/DL (0.2-1.0); Calcium 8.6 MG/DL (8.5-10.1); Osmolality,Calculated 294.1 MOS/KG (273-304); Potassium 4.4 MMOL/L (3.5-5.1); Total Protein 6.4 G/DL (6.4-8.3)
[2017-11-26 00:27] LABS: Troponin I Only 0.464 NG/ML (0.00-0.045)
[2017-11-26] MEDS ORDERED: ENOXAPARIN 100 MG/ML SYRINGE SUBCUT STA (00:56)
[2017-11-26] MEDS ORDERED: methylPREDNISolone SOD SUC 125 MG/2 ML VIAL IM STA (01:03)
[2017-11-26] MEDS ORDERED: FUROSEMIDE 40 MG/4 ML VIAL IM STA (01:04)
[2017-11-26] MEDS ORDERED: ENOXAPARIN 120 MG/0.8 ML SYRINGE SUBCUT ONE (01:09)
[2017-11-26] MEDS ORDERED: ALBUTEROL NEB SOLN 5 MG/ML 20 ML/BOTTLE CONT NEB STA (01:29)
[2017-11-26] MEDS ORDERED: NITROGLYCERIN SL 0.4 MG TABLET SL PRN (01:48)
[2017-11-26] MEDS ORDERED: GLUCAGON 1 MG VIAL IM PRN (01:49)
[2017-11-26] MEDS ORDERED: DEXTROSE 50% 25 GM/50 ML VIAL IV PRN (01:49)
[2017-11-26] MEDS ORDERED: CLOPIDOGREL 300 MG TABLET PO ONE (01:50)
[2017-11-26 02:12] LABS: Apearance,Urine CLEAR (Clear); Bacteria,Urine Occasional /HPF (Few); Bilirubin,Urine Negative (Negative); Blood, Urine Small mg/dL (Negative); Glucose,Urine (UA) 150 mg/dL (Negative); Ketones,Urine Negative (Negative); Nitrite,Urine Negative (Negative); Protein,Urine >=500 MG/DL; RBC,Urine 4 /HPF (0-4); Urine Color Yellow (Yellow); Urine Specific Gravity 1.014 (1.001-1.035); Urine Urobilinogen < 2.0 EU/DL (0.2-1.0); WBC,Urine 3 /HPF (0-6)
[2017-11-26] MEDS ORDERED: DOCUSATE SODIUM 100 MG CAPSULE PO PRN (02:19)
[2017-11-26] MEDS: ALBUTEROL/IPRATROPIUM 3 ML NEB RESP TX SCH ×6 (03:50→22:46)
[2017-11-26] MEDS ORDERED: hydrALAZINE 20 MG/1 ML VIAL IV PRN (04:22)
[2017-11-26] MEDS: ENOXAPARIN 120 MG/0.8 ML SYRINGE SUBCUT SCH ×2 (04:35→13:44)
[2017-11-26 05:53] LABS: Basophils % 0.3 % (0.0-0.8); Eosinophils # 0.1 10*3/uL (0.0-0.87); Eosinophils % 0.6 % (0.00-10.9); Hematocrit 33.2 VOL% (35.7-47.0); Immature Granulocytes % 0.6 %; Immature Granulocytes Absolute 0.06 #; Lymphocytes # 0.9 10*3/uL (1.4-4.0); Lymphocytes % 8.3 % (21.3-54.2); Mean Corpuscular HGB Conc 30.1 GM/DL (32-36); Mean Corpuscular Hemoglobin 29 PG (27-34); Mean Corpuscular Volume 96.5 FL (87-102); Mean Platelet Volume 11.4 FL (9.6-12.0); Monocytes # 0.2 10*3/uL (0.11-0.8); Monocytes % 1.7 % (1.7-12.7); NRBC # 0.02 10*3/uL; Neutrophils # 9.7 10*3/uL (1.4-7.4); Neutrophils % 88.5 % (38.7-73.9); Platelet Count 234 T/CUMM (130-400); Red Blood Count 3.44 MC/CUMM (3.8-5.5); Red Cell Distribution Width 13.9 % (9.3-17.3); White Blood Count 10.9 T/CUMM (4-12)
[2017-11-26 06:17] LABS: Troponin I Only 0.422 NG/ML (0.00-0.045)
[2017-11-26 06:25] LABS: Calcium 8.8 MG/DL (8.5-10.1); Osmolality,Calculated 293.3 MOS/KG (273-304); Potassium 4.2 MMOL/L (3.5-5.1)
[2017-11-26] MEDS: FUROSEMIDE 40 MG/4 ML VIAL IV SCH ×2 (07:59→15:53)
[2017-11-26] MEDS: INSULIN LISPRO 100 UNIT/ML SUBCUT SCH ×4 (07:59→20:45)
[2017-11-26] MEDS ORDERED: FUROSEMIDE 40 MG/4 ML VIAL IM SCH (08:00)
[2017-11-26] MEDS: ROSUVASTATIN 20 MG TABLET PO SCH (08:05)
[2017-11-26] MEDS: ISOSORBIDE MONONITRATE 30 MG TABLET PO SCH (08:05)
[2017-11-26] MEDS: PANTOPRAZOLE 40 MG TABLET PO SCH (08:05)
[2017-11-26] MEDS: INSULIN GLARGINE 100 UNIT/ML SUBCUT SCH (08:06)
[2017-11-26] MEDS: cloNIDine 0.1 MG TABLET PO SCH ×2 (08:08→20:48)
[2017-11-26] MEDS ORDERED: ASPIRIN EC 325 MG TABLET PO SCH (09:00)
[2017-11-26] MEDS ORDERED: CLOPIDOGREL 75 MG TABLET PO SCH (09:00)
[2017-11-26] MEDS ORDERED: ACETAMINOPHEN 325 MG TABLET PO PRN (15:22)
[2017-11-26] MEDS: cefTRIAXone 1,000 MG in SYRINGE 1 EACH IV SCH (16:01)
[2017-11-26 16:27] LABS: Troponin I Only 0.292 NG/ML (0.00-0.045)
[2017-11-26] MEDS: AZITHROMYCIN INJ 500 MG in SODIUM CHLORIDE 0.9% 250 ML IV SCH (16:29)
[2017-11-26] MEDS: ONDANSETRON 4 MG/2 ML VIAL IV PRN (16:46)
[2017-11-26] MEDS: DABIGATRAN 150 MG CAPSULE PO SCH (20:46)
[2017-11-26] MEDS: CARVEDILOL 6.25 MG TABLET PO SCH (20:48)
[2017-11-27] MEDS: ALBUTEROL/IPRATROPIUM 3 ML NEB RESP TX SCH ×6 (02:32→22:54)
[2017-11-27 05:09] LABS: Basophils % 0.2 % (0.0-0.8); Eosinophils % 0.1 % (0.00-10.9); Hematocrit 29.8 VOL% (35.7-47.0); Hemoglobin 9.3 GM/DL (12.0-16.0); Immature Granulocytes % 0.3 %; Immature Granulocytes Absolute 0.04 #; Lymphocytes # 1.9 10*3/uL (1.4-4.0); Mean Corpuscular HGB Conc 31.2 GM/DL (32-36); Mean Corpuscular Hemoglobin 29 PG (27-34); Mean Platelet Volume 10.7 FL (9.6-12.0); Monocytes # 0.9 10*3/uL (0.11-0.8); Monocytes % 7.5 % (1.7-12.7); Neutrophils # 8.9 10*3/uL (1.4-7.4); Neutrophils % 75.9 % (38.7-73.9); Platelet Count 226 T/CUMM (130-400); Red Blood Count 3.17 MC/CUMM (3.8-5.5); White Blood Count 11.7 T/CUMM (4-12)
[2017-11-27 05:26] LABS: Potassium 3.8 MMOL/L (3.5-5.1)
[2017-11-27 05:30] LABS: Risk Ratio 5.04
[2017-11-27] MEDS: FUROSEMIDE 40 MG/4 ML VIAL IV SCH ×2 (08:29→15:50)
[2017-11-27] MEDS: INSULIN GLARGINE 100 UNIT/ML SUBCUT SCH (08:32)
[2017-11-27] MEDS: INSULIN LISPRO 100 UNIT/ML SUBCUT SCH ×4 (08:33→22:09)
[2017-11-27] MEDS: ASPIRIN EC 81 MG TABLET PO SCH (08:34)
[2017-11-27] MEDS: VENLAFAXINE XR 75 MG CAPSULE PO SCH (08:34)
[2017-11-27] MEDS: ROSUVASTATIN 20 MG TABLET PO SCH (08:34)
[2017-11-27] MEDS: PANTOPRAZOLE 40 MG TABLET PO SCH (08:34)
[2017-11-27] MEDS: CARVEDILOL 6.25 MG TABLET PO SCH ×2 (08:34→21:46)
[2017-11-27] MEDS: cloNIDine 0.1 MG TABLET PO SCH ×2 (08:34→21:46)
[2017-11-27] MEDS: DABIGATRAN 150 MG CAPSULE PO SCH ×2 (08:39→21:46)
[2017-11-27] MEDS: ISOSORBIDE MONONITRATE 30 MG TABLET PO SCH (08:39)
[2017-11-27] MEDS: ONDANSETRON 4 MG/2 ML VIAL IV PRN ×2 (10:48→16:10)
[2017-11-27] MEDS ORDERED: MAGNESIUM HYDROXIDE SUSP 30 ML UDCUP PO ONE (11:59)
[2017-11-27] MEDS: cefTRIAXone 1,000 MG in SYRINGE 1 EACH IV SCH (15:49)
[2017-11-27] MEDS: AZITHROMYCIN INJ 500 MG in SODIUM CHLORIDE 0.9% 250 ML IV SCH (15:51)
[2017-11-28] MEDS: ALBUTEROL/IPRATROPIUM 3 ML NEB RESP TX SCH ×6 (02:47→23:57)
[2017-11-28 04:39] LABS: ABG Base Excess 10.6 MMOL/L (-2.5-2.5); ABG HCO3 37.6 MMOL/L (20-26); ABG Oxygen Saturation 91.3 % (95-100); ABG PCO2 64.9 MM HG (35-48); ABG PH 7.381 (7.35-7.45); ABG PO2 68.7 MM HG (80-95); ABG TCO2 39.6 MMOL/L (23-27); Allen Test Positive; Pt O2 Delivery Device BIPAP
[2017-11-28 05:16] LABS: Calcium 8.9 MG/DL (8.5-10.1); Osmolality,Calculated 283.4 MOS/KG (273-304); Potassium 5.8 MMOL/L (3.5-5.1)
[2017-11-28] MEDS: VENLAFAXINE XR 75 MG CAPSULE PO SCH (09:54)
[2017-11-28] MEDS: ISOSORBIDE MONONITRATE 30 MG TABLET PO SCH (09:54)
[2017-11-28] MEDS: FUROSEMIDE 40 MG/4 ML VIAL IV SCH ×2 (09:54→15:19)
[2017-11-28] MEDS: PANTOPRAZOLE 40 MG TABLET PO SCH (09:55)
[2017-11-28] MEDS: cloNIDine 0.1 MG TABLET PO SCH ×2 (09:55→21:13)
[2017-11-28] MEDS: DABIGATRAN 150 MG CAPSULE PO SCH ×2 (09:55→21:13)
[2017-11-28] MEDS: CARVEDILOL 6.25 MG TABLET PO SCH (09:55)
[2017-11-28] MEDS: ROSUVASTATIN 20 MG TABLET PO SCH (09:55)
[2017-11-28] MEDS: ASPIRIN EC 81 MG TABLET PO SCH (09:56)
[2017-11-28] MEDS: INSULIN LISPRO 100 UNIT/ML SUBCUT SCH ×4 (09:59→21:13)
[2017-11-28] MEDS ORDERED: diphenhydrAMINE CAP 25 MG CAPSULE PO ONE (10:23)
[2017-11-28] MEDS: cefTRIAXone 1,000 MG in SYRINGE 1 EACH IV SCH (15:20)
[2017-11-28] MEDS: AZITHROMYCIN INJ 500 MG in SODIUM CHLORIDE 0.9% 250 ML IV SCH (15:23)
[2017-11-28] MEDS: INSULIN GLARGINE 100 UNIT/ML SUBCUT SCH (15:25)
[2017-11-28] MEDS: ONDANSETRON 4 MG/2 ML VIAL IV PRN (15:50)
[2017-11-28] MEDS: CARVEDILOL 12.5 MG TABLET PO SCH (21:13)
[2017-11-29] MEDS: ALBUTEROL/IPRATROPIUM 3 ML NEB RESP TX SCH ×7 (03:03→23:34)
[2017-11-29 05:57] LABS: Calcium 8.8 MG/DL (8.5-10.1); Osmolality,Calculated 287.3 MOS/KG (273-304); Potassium 3.8 MMOL/L (3.5-5.1)
[2017-11-29] MEDS ORDERED: LOSARTAN 25 MG TABLET PO SCH (09:00)
[2017-11-29] MEDS: VENLAFAXINE XR 75 MG CAPSULE PO SCH (09:03)
[2017-11-29] MEDS: ROSUVASTATIN 20 MG TABLET PO SCH (09:03)
[2017-11-29] MEDS: ISOSORBIDE MONONITRATE 30 MG TABLET PO SCH (09:03)
[2017-11-29] MEDS: INSULIN GLARGINE 100 UNIT/ML SUBCUT SCH (09:04)
[2017-11-29] MEDS: ASPIRIN EC 81 MG TABLET PO SCH (09:04)
[2017-11-29] MEDS: DABIGATRAN 150 MG CAPSULE PO SCH ×2 (09:04→20:42)
[2017-11-29] MEDS: PANTOPRAZOLE 40 MG TABLET PO SCH (09:04)
[2017-11-29] MEDS: cloNIDine 0.1 MG TABLET PO SCH ×2 (09:04→20:42)
[2017-11-29] MEDS: CARVEDILOL 12.5 MG TABLET PO SCH ×2 (09:04→20:42)
[2017-11-29] MEDS: FUROSEMIDE 40 MG/4 ML VIAL IV SCH ×2 (09:08→15:05)
[2017-11-29] MEDS: INSULIN LISPRO 100 UNIT/ML SUBCUT SCH ×4 (11:38→20:41)
[2017-11-29] MEDS: cefTRIAXone 1,000 MG in SYRINGE 1 EACH IV SCH (15:00)
[2017-11-29] MEDS: AZITHROMYCIN INJ 500 MG in SODIUM CHLORIDE 0.9% 250 ML IV SCH (15:12)
[2017-11-30] MEDS: ALBUTEROL/IPRATROPIUM 3 ML NEB RESP TX SCH ×6 (03:42→23:18)
[2017-11-30 05:10] LABS: Basophils % 0.5 % (0.0-0.8); Eosinophils # 0.2 10*3/uL (0.0-0.87); Eosinophils % 2.2 % (0.00-10.9); Hematocrit 32.4 VOL% (35.7-47.0); Hemoglobin 9.8 GM/DL (12.0-16.0); Immature Granulocytes % 0.3 %; Immature Granulocytes Absolute 0.03 #; Lymphocytes # 2.2 10*3/uL (1.4-4.0); Lymphocytes % 25.2 % (21.3-54.2); Mean Corpuscular HGB Conc 30.2 GM/DL (32-36); Mean Corpuscular Hemoglobin 28 PG (27-34); Mean Corpuscular Volume 93.1 FL (87-102); Mean Platelet Volume 10.9 FL (9.6-12.0); Monocytes # 0.7 10*3/uL (0.11-0.8); Monocytes % 8.2 % (1.7-12.7); Neutrophils # 5.6 10*3/uL (1.4-7.4); Neutrophils % 63.6 % (38.7-73.9); Platelet Count 241 T/CUMM (130-400); Red Blood Count 3.48 MC/CUMM (3.8-5.5); Red Cell Distribution Width 13.7 % (9.3-17.3); White Blood Count 8.7 T/CUMM (4-12)
[2017-11-30] MEDS: VENLAFAXINE XR 75 MG CAPSULE PO SCH (10:18)
[2017-11-30] MEDS: DABIGATRAN 150 MG CAPSULE PO SCH ×2 (10:19→21:19)
[2017-11-30] MEDS: cloNIDine 0.1 MG TABLET PO SCH ×2 (10:19→21:19)
[2017-11-30] MEDS: ROSUVASTATIN 20 MG TABLET PO SCH (10:20)
[2017-11-30] MEDS: ASPIRIN EC 81 MG TABLET PO SCH (10:20)
[2017-11-30] MEDS: acetaZOLAMIDE 250 MG TABLET PO SCH (10:20)
[2017-11-30] MEDS: ISOSORBIDE MONONITRATE 30 MG TABLET PO SCH (10:21)
[2017-11-30] MEDS: CARVEDILOL 12.5 MG TABLET PO SCH ×2 (10:22→21:19)
[2017-11-30] MEDS: PANTOPRAZOLE 40 MG TABLET PO SCH (10:22)
[2017-11-30] MEDS: INSULIN GLARGINE 100 UNIT/ML SUBCUT SCH (10:22)
[2017-11-30] MEDS: FUROSEMIDE 40 MG/4 ML VIAL IV SCH ×2 (10:23→18:25)
[2017-11-30] MEDS: INSULIN LISPRO 100 UNIT/ML SUBCUT SCH ×4 (10:27→21:20)
[2017-11-30] MEDS: cefTRIAXone 1,000 MG in SYRINGE 1 EACH IV SCH (15:20)
[2017-11-30] MEDS: AZITHROMYCIN INJ 500 MG in SODIUM CHLORIDE 0.9% 250 ML IV SCH (15:25)
[2017-12-01] MEDS: ALBUTEROL/IPRATROPIUM 3 ML NEB RESP TX SCH ×6 (03:00→23:56)
[2017-12-01 05:10] LABS: Calcium 8.9 MG/DL (8.5-10.1); Osmolality,Calculated 294.1 MOS/KG (273-304); Potassium 3.9 MMOL/L (3.5-5.1)
[2017-12-01] MEDS: FUROSEMIDE 40 MG/4 ML VIAL IV SCH (10:47)
[2017-12-01] MEDS: acetaZOLAMIDE 250 MG TABLET PO SCH (10:49)
[2017-12-01] MEDS: VENLAFAXINE XR 75 MG CAPSULE PO SCH (10:49)
[2017-12-01] MEDS: cloNIDine 0.1 MG TABLET PO SCH ×2 (10:50→21:18)
[2017-12-01] MEDS: ROSUVASTATIN 20 MG TABLET PO SCH (10:50)
[2017-12-01] MEDS: ASPIRIN EC 81 MG TABLET PO SCH (10:50)
[2017-12-01] MEDS: PANTOPRAZOLE 40 MG TABLET PO SCH (10:50)
[2017-12-01] MEDS: CARVEDILOL 12.5 MG TABLET PO SCH ×2 (10:50→21:17)
[2017-12-01] MEDS: ISOSORBIDE MONONITRATE 30 MG TABLET PO SCH (10:51)
[2017-12-01] MEDS: INSULIN LISPRO 100 UNIT/ML SUBCUT SCH ×4 (10:52→21:18)
[2017-12-01] MEDS: DABIGATRAN 150 MG CAPSULE PO SCH ×2 (10:53→21:17)
[2017-12-01] MEDS: INSULIN GLARGINE 100 UNIT/ML SUBCUT SCH (10:55)
[2017-12-01] MEDS: MAGNESIUM HYDROXIDE SUSP 30 ML UDCUP PO PRN (14:20)
[2017-12-02] MEDS: cefTRIAXone 1,000 MG in SYRINGE 1 EACH IV SCH ×2 (03:26→15:12)
[2017-12-02] MEDS: AZITHROMYCIN INJ 500 MG in SODIUM CHLORIDE 0.9% 250 ML IV SCH (03:26)
[2017-12-02] MEDS: ALBUTEROL/IPRATROPIUM 3 ML NEB RESP TX SCH ×4 (03:50→20:47)
[2017-12-02] MEDS: ISOSORBIDE MONONITRATE 30 MG TABLET PO SCH (08:17)
[2017-12-02] MEDS: DABIGATRAN 150 MG CAPSULE PO SCH ×2 (08:17→21:54)
[2017-12-02] MEDS: ASPIRIN EC 81 MG TABLET PO SCH (08:17)
[2017-12-02] MEDS: acetaZOLAMIDE 250 MG TABLET PO SCH (08:17)
[2017-12-02] MEDS: VENLAFAXINE XR 75 MG CAPSULE PO SCH (08:17)
[2017-12-02] MEDS: PANTOPRAZOLE 40 MG TABLET PO SCH (08:17)
[2017-12-02] MEDS: cloNIDine 0.1 MG TABLET PO SCH ×2 (08:17→21:50)
[2017-12-02] MEDS: CARVEDILOL 12.5 MG TABLET PO SCH ×2 (08:17→21:50)
[2017-12-02] MEDS: ROSUVASTATIN 20 MG TABLET PO SCH (08:17)
[2017-12-02] MEDS: INSULIN LISPRO 100 UNIT/ML SUBCUT SCH ×4 (08:18→21:50)
[2017-12-02] MEDS: INSULIN GLARGINE 100 UNIT/ML SUBCUT SCH (08:18)
[2017-12-02] MEDS: FUROSEMIDE 40 MG/4 ML VIAL IV SCH (09:42)
[2017-12-02] MEDS: MAGNESIUM HYDROXIDE SUSP 30 ML UDCUP PO PRN (14:10)
[2017-12-03] MEDS: ALBUTEROL/IPRATROPIUM 3 ML NEB RESP TX SCH ×4 (00:05→11:36)
[2017-12-03 04:27] LABS: Basophils # 0.1 10*3/uL (0.0-0.2); Basophils % 0.7 % (0.0-0.8); Eosinophils # 0.3 10*3/uL (0.0-0.87); Eosinophils % 2.6 % (0.00-10.9); Hematocrit 33.9 VOL% (35.7-47.0); Hemoglobin 10.5 GM/DL (12.0-16.0); Immature Granulocytes % 0.8 %; Immature Granulocytes Absolute 0.08 #; Lymphocytes # 3.5 10*3/uL (1.4-4.0); Lymphocytes % 33.5 % (21.3-54.2); Mean Corpuscular Hemoglobin 29 PG (27-34); Mean Corpuscular Volume 91.9 FL (87-102); Mean Platelet Volume 10.6 FL (9.6-12.0); Monocytes # 0.8 10*3/uL (0.11-0.8); Monocytes % 7.6 % (1.7-12.7); Neutrophils # 5.8 10*3/uL (1.4-7.4); Neutrophils % 54.8 % (38.7-73.9); Platelet Count 289 T/CUMM (130-400); Red Blood Count 3.69 MC/CUMM (3.8-5.5); White Blood Count 10.5 T/CUMM (4-12)
[2017-12-03] MEDS: cloNIDine 0.1 MG TABLET PO SCH (09:40)
[2017-12-03] MEDS: ISOSORBIDE MONONITRATE 30 MG TABLET PO SCH (09:40)
[2017-12-03] MEDS: ROSUVASTATIN 20 MG TABLET PO SCH (09:41)
[2017-12-03] MEDS: CARVEDILOL 12.5 MG TABLET PO SCH (09:41)
[2017-12-03] MEDS: acetaZOLAMIDE 250 MG TABLET PO SCH (09:41)
[2017-12-03] MEDS: PANTOPRAZOLE 40 MG TABLET PO SCH (09:41)
[2017-12-03] MEDS: INSULIN LISPRO 100 UNIT/ML SUBCUT SCH ×2 (09:42→12:22)
[2017-12-03] MEDS: INSULIN GLARGINE 100 UNIT/ML SUBCUT SCH (09:42)
[2017-12-03] MEDS: VENLAFAXINE XR 75 MG CAPSULE PO SCH (09:42)
[2017-12-03] MEDS: FUROSEMIDE 40 MG/4 ML VIAL IV SCH (09:44)
[2017-12-03] MEDS: DABIGATRAN 150 MG CAPSULE PO SCH (09:49)
[2017-12-03] MEDS: ASPIRIN EC 81 MG TABLET PO SCH (09:49)
[2017-12-03] MEDS ORDERED: TUBERCULIN SKIN TEST 0.1 ML SYRINGE INTRADERM ONE (11:04)
[2017-12-03 11:47] VITALS: BP 84/57
== END 2017-12-03 14:15 | disposition swing bed (61) | DRG 189 ==
LOC: EDUNIT# → EDBD → N.ED 22:22 → N.EDINP 11-26 02:19 → SUATTDRO 11-26 02:19 → N.CC 11-26 03:01 → N.TELEN 11-29 00:27
PROVIDERS: ADMIT Internal Medicine; ATTEND Internal Medicine

== ENCOUNTER 2018-02-23 20:09 | Inpatient (IN) ==
[2018-02-23] MEDS ORDERED: FUROSEMIDE 100 MG/10 ML VIAL IV STA (20:58)
[2018-02-23] MEDS ORDERED: methylPREDNISolone SOD SUC 125 MG/2 ML VIAL IV STA (20:58)
[2018-02-23] MEDS ORDERED: ALBUTEROL/IPRATROPIUM 3 ML NEB RESP TX STA (20:58)
[2018-02-23 23:53] LABS: Basophils # 0.1 10*3/uL (0.0-0.2); Basophils % 0.6 % (0.0-0.8); Eosinophils # 0.2 10*3/uL (0.0-0.87); Eosinophils % 1.9 % (0.00-10.9); Hematocrit 31.2 VOL% (35.7-47.0); Hemoglobin 9.4 GM/DL (12.0-16.0); Immature Granulocytes % 0.5 %; Immature Granulocytes Absolute 0.05 #; Lymphocytes # 2.8 10*3/uL (1.4-4.0); Lymphocytes % 26.6 % (21.3-54.2); Mean Corpuscular HGB Conc 30.1 GM/DL (32-36); Mean Corpuscular Hemoglobin 28 PG (27-34); Mean Platelet Volume 10.5 FL (9.6-12.0); Monocytes # 0.7 10*3/uL (0.11-0.8); Monocytes % 6.5 % (1.7-12.7); NRBC # 0.02 10*3/uL; Neutrophils # 6.7 10*3/uL (1.4-7.4); Neutrophils % 63.9 % (38.7-73.9); Platelet Count 267 T/CUMM (130-400); Red Blood Count 3.32 MC/CUMM (3.8-5.5); Red Cell Distribution Width 14.6 % (9.3-17.3); White Blood Count 10.4 T/CUMM (4-12)
[2018-02-24 00:10] LABS: PT Patient Result 10.4 SECS
[2018-02-24 00:31] LABS: Albumin 2.8 G/DL (3.4-5.0); Bilirubin,Total 0.7 MG/DL (0.2-1.0); Calcium 8.4 MG/DL (8.5-10.1); Osmolality,Calculated 292.8 MOS/KG (273-304); Potassium 3.8 MMOL/L (3.5-5.1); Total Protein 6.3 G/DL (6.4-8.3)
[2018-02-24] MEDS ORDERED: NITROGLYCERIN 2% OINT 1 INCH/GM PACK TOP STA (02:01)
[2018-02-24] MEDS ORDERED: ASPIRIN EC 325 MG TABLET PO STA (02:02)
[2018-02-24] MEDS ORDERED: FUROSEMIDE 20 MG TABLET PO STA ×2 (02:08→03:00)
[2018-02-24] MEDS ORDERED: ONDANSETRON 4 MG/2 ML VIAL IV PRN (03:12)
[2018-02-24] MEDS ORDERED: ACETAMINOPHEN 325 MG TABLET PO PRN (03:12)
[2018-02-24] MEDS ORDERED: GLUCAGON 1 MG VIAL IM PRN (03:12)
[2018-02-24] MEDS ORDERED: DEXTROSE 50% 25 GM/50 ML VIAL IV PRN (03:12)
[2018-02-24] MEDS ORDERED: DOCUSATE SODIUM 100 MG CAPSULE PO PRN (03:12)
[2018-02-24 06:15] LABS: Apearance,Urine CLEAR (Clear); Bacteria,Urine Occasional /HPF (Few); Bilirubin,Urine Negative (Negative); Blood, Urine Negative (Negative); Glucose,Urine (UA) 50 mg/dL (Negative); Hyaline Casts,Urine 1 /LPF (0-3); Ketones,Urine Negative (Negative); Mucus,Urine Occasional /LPF (Occasional); Nitrite,Urine Negative (Negative); Protein,Urine >=500 MG/DL; Squamous Epithelial Cell,Urine Occasional /HPF (0-10); Urine Color Yellow (Yellow); Urine Specific Gravity 1.022 (1.001-1.035); Urine Urobilinogen < 2.0 EU/DL (0.2-1.0); WBC,Urine 2 /HPF (0-6)
[2018-02-24 07:15] LABS: Calcium 8.7 MG/DL (8.5-10.1); Potassium 4.5 MMOL/L (3.5-5.1)
[2018-02-24 07:30] LABS: Basophils % 0.3 % (0.0-0.8); Eosinophils % 0.1 % (0.00-10.9); Immature Granulocytes % 1.3 %; Immature Granulocytes Absolute 0.12 #; Lymphocytes # 0.9 10*3/uL (1.4-4.0); Lymphocytes % 9.8 % (21.3-54.2); Mean Corpuscular HGB Conc 28.9 GM/DL (32-36); Mean Corpuscular Hemoglobin 27 PG (27-34); Mean Corpuscular Volume 94.3 FL (87-102); Mean Platelet Volume 11.6 FL (9.6-12.0); Monocytes # 0.1 10*3/uL (0.11-0.8); Monocytes % 0.8 % (1.7-12.7); NRBC # 0.03 10*3/uL; Neutrophils # 7.9 10*3/uL (1.4-7.4); Neutrophils % 87.7 % (38.7-73.9); Platelet Count 288 T/CUMM (130-400); Red Blood Count 3.71 MC/CUMM (3.8-5.5); Red Cell Distribution Width 14.6 % (9.3-17.3); White Blood Count 9.1 T/CUMM (4-12)
[2018-02-24 07:32] LABS: Hemoglobin 10.1 GM/DL (12.0-16.0)
[2018-02-24 07:39] LABS: Hypochromasia 1+; Microcytosis 1+; Ovalocytes Few; Polychromasia Slight
[2018-02-24 07:40] LABS: Platelet Estimate Normal
[2018-02-24] MEDS ORDERED: ENOXAPARIN 40 MG/0.4 ML SYRINGE SUBCUT SCH ×2 (09:00→10:30)
[2018-02-24] MEDS: INSULIN LISPRO 100 UNIT/ML SUBCUT SCH ×6 (10:02→21:29)
[2018-02-24] MEDS: CARVEDILOL 12.5 MG TABLET PO SCH ×2 (10:03→16:48)
[2018-02-24] MEDS: cloNIDine 0.1 MG TABLET PO SCH ×2 (10:03→21:18)
[2018-02-24] MEDS ORDERED: ALBUTEROL 2.5 MG/3 ML NEB RESP TX PRN (12:00)
[2018-02-24] MEDS: VENLAFAXINE XR 75 MG CAPSULE PO SCH (12:12)
[2018-02-24] MEDS: ASPIRIN EC 81 MG TABLET PO SCH (12:12)
[2018-02-24] MEDS: ISOSORBIDE MONONITRATE 30 MG TABLET PO SCH (12:12)
[2018-02-24] MEDS: CETIRIZINE 10 MG TABLET PO SCH (12:12)
[2018-02-24] MEDS: DABIGATRAN 150 MG CAPSULE PO SCH ×2 (12:14→21:18)
[2018-02-24] MEDS: PANTOPRAZOLE 40 MG TABLET PO SCH (13:17)
[2018-02-24] MEDS: FUROSEMIDE 40 MG/4 ML VIAL IV SCH ×2 (13:17→16:50)
[2018-02-24] MEDS: ATORVASTATIN 40 MG TABLET PO SCH (21:18)
[2018-02-24] MEDS: GABAPENTIN 300 MG CAPSULE PO SCH (21:18)
[2018-02-24] MEDS: traZODone 50 MG TABLET PO SCH (21:19)
[2018-02-24] MEDS: INSULIN GLARGINE 100 UNIT/ML SUBCUT SCH (21:19)
[2018-02-25] MEDS: INSULIN LISPRO 100 UNIT/ML SUBCUT SCH ×7 (08:23→21:10)
[2018-02-25] MEDS: VENLAFAXINE XR 75 MG CAPSULE PO SCH (08:24)
[2018-02-25] MEDS: CETIRIZINE 10 MG TABLET PO SCH (08:24)
[2018-02-25] MEDS: ASPIRIN EC 81 MG TABLET PO SCH (08:24)
[2018-02-25] MEDS: CARVEDILOL 12.5 MG TABLET PO SCH ×2 (08:24→16:32)
[2018-02-25] MEDS: PANTOPRAZOLE 40 MG TABLET PO SCH (08:24)
[2018-02-25] MEDS: DABIGATRAN 150 MG CAPSULE PO SCH ×2 (08:24→21:10)
[2018-02-25] MEDS: ISOSORBIDE MONONITRATE 30 MG TABLET PO SCH (08:24)
[2018-02-25] MEDS: cloNIDine 0.1 MG TABLET PO SCH ×2 (08:24→21:09)
[2018-02-25] MEDS: FUROSEMIDE 40 MG/4 ML VIAL IV SCH ×2 (08:25→16:32)
[2018-02-25 08:32] LABS: Calcium 8.5 MG/DL (8.5-10.1); Osmolality,Calculated 289.3 MOS/KG (273-304)
[2018-02-25] MEDS: INSULIN GLARGINE 100 UNIT/ML SUBCUT SCH ×2 (08:35→21:10)
[2018-02-25 08:44] LABS: Basophils % 0.1 % (0.0-0.8); Eosinophils % 0.1 % (0.00-10.9); Hematocrit 29.9 VOL% (35.7-47.0); Immature Granulocytes % 0.5 %; Immature Granulocytes Absolute 0.05 #; Lymphocytes # 2.2 10*3/uL (1.4-4.0); Lymphocytes % 19.6 % (21.3-54.2); Mean Corpuscular HGB Conc 29.4 GM/DL (32-36); Mean Corpuscular Hemoglobin 28 PG (27-34); Mean Corpuscular Volume 93.7 FL (87-102); Mean Platelet Volume 10.7 FL (9.6-12.0); Monocytes # 0.6 10*3/uL (0.11-0.8); Monocytes % 5.7 % (1.7-12.7); Neutrophils # 8.2 10*3/uL (1.4-7.4); Platelet Count 265 T/CUMM (130-400); Red Blood Count 3.19 MC/CUMM (3.8-5.5); Red Cell Distribution Width 14.7 % (9.3-17.3); White Blood Count 11.1 T/CUMM (4-12)
[2018-02-25 08:47] LABS: Hemoglobin 8.8 GM/DL (12.0-16.0)
[2018-02-25 10:28] LABS: Hypochromasia 1+
[2018-02-25 10:29] LABS: Microcytosis Slight; Ovalocytes Slight; Platelet Estimate Adequate
[2018-02-25] MEDS: SODIUM CHLORIDE 0.9% 1,000 ML IV SCH (17:47)
[2018-02-25] MEDS: GABAPENTIN 300 MG CAPSULE PO SCH (21:09)
[2018-02-25] MEDS: ATORVASTATIN 40 MG TABLET PO SCH (21:10)
[2018-02-25] MEDS: traZODone 50 MG TABLET PO SCH (21:10)
[2018-02-26] MEDS ORDERED: KETOROLAC 30 MG/1 ML VIAL IV PRN (03:00)
[2018-02-26 05:44] LABS: Basophils # 0.1 10*3/uL (0.0-0.2); Basophils % 0.4 % (0.0-0.8); Eosinophils # 0.2 10*3/uL (0.0-0.87); Eosinophils % 1.7 % (0.00-10.9); Hematocrit 29.2 VOL% (35.7-47.0); Hemoglobin 8.4 GM/DL (12.0-16.0); Immature Granulocytes % 0.5 %; Immature Granulocytes Absolute 0.06 #; Lymphocytes # 3.5 10*3/uL (1.4-4.0); Lymphocytes % 30.2 % (21.3-54.2); Mean Corpuscular HGB Conc 28.8 GM/DL (32-36); Mean Corpuscular Hemoglobin 28 PG (27-34); Mean Corpuscular Volume 95.7 FL (87-102); Mean Platelet Volume 10.8 FL (9.6-12.0); Monocytes # 0.8 10*3/uL (0.11-0.8); Monocytes % 6.7 % (1.7-12.7); NRBC # 0.02 10*3/uL; Neutrophils # 6.9 10*3/uL (1.4-7.4); Neutrophils % 60.5 % (38.7-73.9); Platelet Count 256 T/CUMM (130-400); Red Blood Count 3.05 MC/CUMM (3.8-5.5); Red Cell Distribution Width 14.7 % (9.3-17.3); White Blood Count 11.4 T/CUMM (4-12)
[2018-02-26 06:03] LABS: Calcium 8.1 MG/DL (8.5-10.1); Osmolality,Calculated 285.5 MOS/KG (273-304); Potassium 4.2 MMOL/L (3.5-5.1)
[2018-02-26 06:09] LABS: Hypochromasia 1+; Microcytosis 1+
[2018-02-26 06:10] LABS: Ovalocytes Slight; Platelet Estimate Normal; Polychromasia Slight
[2018-02-26] MEDS: INSULIN LISPRO 100 UNIT/ML SUBCUT SCH ×7 (08:03→21:08)
[2018-02-26] MEDS: VENLAFAXINE XR 75 MG CAPSULE PO SCH (08:33)
[2018-02-26] MEDS: PANTOPRAZOLE 40 MG TABLET PO SCH (08:33)
[2018-02-26] MEDS: DABIGATRAN 150 MG CAPSULE PO SCH ×2 (08:33→21:07)
[2018-02-26] MEDS: CETIRIZINE 10 MG TABLET PO SCH (08:33)
[2018-02-26] MEDS: CARVEDILOL 12.5 MG TABLET PO SCH ×2 (08:33→17:21)
[2018-02-26] MEDS: ISOSORBIDE MONONITRATE 30 MG TABLET PO SCH (08:33)
[2018-02-26] MEDS: cloNIDine 0.1 MG TABLET PO SCH ×2 (08:33→21:08)
[2018-02-26] MEDS: INSULIN GLARGINE 100 UNIT/ML SUBCUT SCH ×2 (08:34→21:08)
[2018-02-26] MEDS: ASPIRIN EC 81 MG TABLET PO SCH (08:34)
[2018-02-26] MEDS: FUROSEMIDE 40 MG/4 ML VIAL IV SCH (08:36)
[2018-02-26] MEDS: traZODone 50 MG TABLET PO SCH (21:07)
[2018-02-26] MEDS: GABAPENTIN 300 MG CAPSULE PO SCH (21:07)
[2018-02-26] MEDS: ATORVASTATIN 40 MG TABLET PO SCH (21:08)
[2018-02-26] MEDS: SODIUM CHLORIDE 0.9% 1,000 ML IV SCH (23:17)
[2018-02-27 05:03] LABS: Calcium 7.9 MG/DL (8.5-10.1); Osmolality,Calculated 291.4 MOS/KG (273-304); Potassium 4.5 MMOL/L (3.5-5.1)
[2018-02-27] MEDS: PANTOPRAZOLE 40 MG TABLET PO SCH (08:21)
[2018-02-27] MEDS: DABIGATRAN 150 MG CAPSULE PO SCH ×2 (08:22→20:52)
[2018-02-27] MEDS: VENLAFAXINE XR 75 MG CAPSULE PO SCH (08:22)
[2018-02-27] MEDS: cloNIDine 0.1 MG TABLET PO SCH ×2 (08:23→20:51)
[2018-02-27] MEDS: ASPIRIN EC 81 MG TABLET PO SCH (08:24)
[2018-02-27] MEDS: CARVEDILOL 12.5 MG TABLET PO SCH ×2 (08:24→16:29)
[2018-02-27] MEDS: ISOSORBIDE MONONITRATE 30 MG TABLET PO SCH (08:25)
[2018-02-27] MEDS: CETIRIZINE 10 MG TABLET PO SCH (08:25)
[2018-02-27] MEDS: INSULIN LISPRO 100 UNIT/ML SUBCUT SCH ×7 (08:27→20:53)
[2018-02-27] MEDS: INSULIN GLARGINE 100 UNIT/ML SUBCUT SCH ×2 (08:29→20:57)
[2018-02-27] MEDS ORDERED: FUROSEMIDE 40 MG/4 ML VIAL IV SCH (09:00)
[2018-02-27] MEDS: GABAPENTIN 300 MG CAPSULE PO SCH (20:51)
[2018-02-27] MEDS: traZODone 50 MG TABLET PO SCH (20:51)
[2018-02-27] MEDS: ATORVASTATIN 40 MG TABLET PO SCH (20:52)
[2018-02-28] MEDS: SODIUM CHLORIDE 0.9% 1,000 ML IV SCH (03:14)
[2018-02-28 08:22] LABS: Calcium 8.3 MG/DL (8.5-10.1); Osmolality,Calculated 295.8 MOS/KG (273-304); Potassium 4.5 MMOL/L (3.5-5.1)
[2018-02-28 08:26] LABS: Basophils % 0.3 % (0.0-0.8); Eosinophils # 0.3 10*3/uL (0.0-0.87); Eosinophils % 4.7 % (0.00-10.9); Hematocrit 29.4 VOL% (35.7-47.0); Hemoglobin 8.8 GM/DL (12.0-16.0); Immature Granulocytes % 0.4 %; Immature Granulocytes Absolute 0.03 #; Lymphocytes # 2.5 10*3/uL (1.4-4.0); Lymphocytes % 36.2 % (21.3-54.2); Mean Corpuscular HGB Conc 29.9 GM/DL (32-36); Mean Corpuscular Hemoglobin 29 PG (27-34); Mean Corpuscular Volume 96.1 FL (87-102); Mean Platelet Volume 11.1 FL (9.6-12.0); Monocytes # 0.6 10*3/uL (0.11-0.8); Neutrophils # 3.5 10*3/uL (1.4-7.4); Neutrophils % 50.4 % (38.7-73.9); Platelet Count 222 T/CUMM (130-400); Red Blood Count 3.06 MC/CUMM (3.8-5.5); Red Cell Distribution Width 14.5 % (9.3-17.3)
[2018-02-28] MEDS: INSULIN GLARGINE 100 UNIT/ML SUBCUT SCH (08:27)
[2018-02-28] MEDS: DABIGATRAN 150 MG CAPSULE PO SCH (08:28)
[2018-02-28] MEDS: PANTOPRAZOLE 40 MG TABLET PO SCH (08:28)
[2018-02-28] MEDS: CETIRIZINE 10 MG TABLET PO SCH (08:28)
[2018-02-28] MEDS: CARVEDILOL 12.5 MG TABLET PO SCH (08:28)
[2018-02-28] MEDS: VENLAFAXINE XR 75 MG CAPSULE PO SCH (08:28)
[2018-02-28] MEDS: ISOSORBIDE MONONITRATE 30 MG TABLET PO SCH (08:28)
[2018-02-28] MEDS: cloNIDine 0.1 MG TABLET PO SCH (08:28)
[2018-02-28] MEDS: INSULIN LISPRO 100 UNIT/ML SUBCUT SCH ×2 (08:29)
[2018-02-28] MEDS ORDERED: FUROSEMIDE 40 MG TABLET PO SCH (09:00)
[2018-02-28] MEDS ORDERED: ASPIRIN EC 81 MG TABLET PO SCH (09:00)
[2018-02-28 11:46] VITALS: BP 142/53
== END 2018-02-28 13:00 | disposition home health service (06) | DRG 292 ==
LOC: EDUNIT# → EDBD → N.ED 20:09 → N.EDINP 02-24 02:58 → N.2E 02-24 03:25
PROVIDERS: ADMIT Internal Medicine; ATTEND Internal Medicine

== ENCOUNTER 2020-08-19 13:59 | Inpatient (IN) ==
[2020-08-19] MEDS ORDERED: MIDAZOLAM 10 MG/2 ML VIAL IM STA (15:16)
[2020-08-19] MEDS ORDERED: MIDAZOLAM 10 MG/2 ML VIAL ONE (15:17)
[2020-08-19] MEDS ORDERED: SUCCINYLCHOLINE 200 MG/10 ML VIAL ONE (15:25)
[2020-08-19] MEDS ORDERED: SUCCINYLCHOLINE 200 MG/10 ML VIAL IM STA (15:25)
[2020-08-19] MEDS ORDERED: SUCCINYLCHOLINE 200 MG/10 ML VIAL IV STA (15:34)
[2020-08-19] MEDS ORDERED: MIDAZOLAM 2 MG/2 ML VIAL ONE ×2 (15:42→15:52)
[2020-08-19] MEDS ORDERED: MIDAZOLAM 2 MG/2 ML VIAL IM STA (15:50)
[2020-08-19] MEDS ORDERED: MIDAZOLAM 2 MG/2 ML VIAL IV ONE (15:50)
[2020-08-19] MEDS ORDERED: ALBUTEROL 2.5 MG/3 ML NEB RESP TX PRN (16:26)
[2020-08-19] MEDS ORDERED: MORPHINE 4 MG/1 ML VIAL IV PRN (16:26)
[2020-08-19] MEDS ORDERED: GLUCAGON 1 MG VIAL IM PRN (17:16)
[2020-08-19] MEDS ORDERED: DEXTROSE 50% 25 GM/50 ML VIAL IV PRN (17:16)
[2020-08-19] MEDS: PANTOPRAZOLE 40 MG VIAL IV SCH (17:23)
[2020-08-19] MEDS: LEVOFLOXACIN INJ 500 MG in PREMIX 1 EACH IV SCH (17:23)
[2020-08-19] MEDS: LACTATED RINGERS 1,000 ML IV SCH (17:24)
[2020-08-19] MEDS: INSULIN LISPRO 100 UNIT/ML SUBCUT SCH (17:24)
[2020-08-19] MEDS ORDERED: ENOXAPARIN 40 MG/0.4 ML SYRINGE SUBCUT SCH (17:30)
[2020-08-19 17:33] LABS: Basophils % 0.2 % (0.0-0.8); Eosinophils % 0.3 % (0.00-10.9); Hematocrit 32.7 VOL% (35.7-47.0); Immature Granulocytes % 0.6 %; Immature Granulocytes Absolute 0.06 #; Mean Corpuscular HGB Conc 27.5 GM/DL (32-36); Mean Corpuscular Volume 99.4 FL (87-102); Mean Platelet Volume 11.1 FL (9.6-12.0); Monocytes % 5.5 % (1.7-12.7); Neutrophils % 83.4 % (38.7-73.9); Platelet Count 208 T/CUMM (130-400); Red Blood Count 3.29 MC/CUMM (3.8-5.5); Red Cell Distribution Width 14.9 % (9.3-17.3); White Blood Count 9.5 T/CUMM (4-12)
[2020-08-19] MEDS: cefTRIAXone 2,000 MG in SYRINGE 1 EACH IV SCH (17:36)
[2020-08-19 17:41] LABS: Alanine Aminotransferase 16 U/L (13-56); Albumin 2.7 G/DL (3.4-5.0); Alkaline Phosphatase 91 U/L (45-117); Aspartate Amino Transferase 14 U/L (0-37); Bilirubin,Total < 0.39 MG/DL (0.2-1.0); Blood Urea Nitrogen 49 MG/DL (7-18); Calcium 8.4 MG/DL (8.5-10.1); Carbon Dioxide 27 MMOL/L (21-32); Estimated Glom Filtration Rate 21 ML/MIN; Glucose 116 MG/DL (74-106); Lactic Acid 1.4 MMOL/L (0.4-2.0); Osmolality,Calculated 299.8 MOS/KG (273-304); Potassium 4.8 MMOL/L (3.5-5.1); Sodium 144 MMOL/L (136-145); Total Protein 5.6 G/DL (6.4-8.2)
[2020-08-19 18:08] LABS: Bacteria,Urine Few /HPF (Few); Bilirubin,Urine Negative (Negative); Blood, Urine Small mg/dL (Negative); Glucose,Urine (UA) Negative (Negative); Hyaline Casts,Urine 34 /LPF (0-3); Ketones,Urine Negative (Negative); Mucus,Urine Occasional /LPF (Occasional); Nitrite,Urine Negative (Negative); Protein,Urine >=500 MG/DL; RBC,Urine 31 /HPF (0-4); Squamous Epithelial Cell,Urine Occasional /HPF (0-10); Urine Appearance CLOUDY (Clear); Urine Color Yellow (Yellow); Urine Specific Gravity 1.017 (1.001-1.035); Urine Urobilinogen < 2.0 EU/DL (0.2-1.0); WBC,Urine 96 /HPF (0-6)
[2020-08-19 20:03] LABS: ABG HCO3 25.4 MMOL/L (20-26); ABG PCO2 41.3 MM HG (35-48); ABG PH 7.404 (7.35-7.45); ABG TCO2 23.7 MMOL/L (23-27)
[2020-08-20 03:24] LABS: ABG Base Excess 4.2 MMOL/L (-2.5-2.5); ABG HCO3 28.2 MMOL/L (20-26); ABG PCO2 26.6 MM HG (35-48); ABG PH 7.588 (7.35-7.45); ABG TCO2 23.3 MMOL/L (23-27); Allen Test Positive; Pt O2 Delivery Device Ventilator
[2020-08-20 06:18] LABS: Basophils % 0.3 % (0.0-0.8); Eosinophils # 0.1 10*3/uL (0.0-0.87); Eosinophils % 0.9 % (0.00-10.9); Hematocrit 29.8 VOL% (35.7-47.0); Hemoglobin 8.9 GM/DL (12.0-16.0); Immature Granulocytes % 0.5 %; Immature Granulocytes Absolute 0.06 #; Lymphocytes # 1.9 10*3/uL (1.4-4.0); Lymphocytes % 16.7 % (21.3-54.2); Mean Corpuscular HGB Conc 29.9 GM/DL (32-36); Mean Corpuscular Volume 91.4 FL (87-102); Monocytes % 6.2 % (1.7-12.7); Neutrophils % 75.4 % (38.7-73.9); Platelet Count 202 T/CUMM (130-400); Red Blood Count 3.26 MC/CUMM (3.8-5.5); Red Cell Distribution Width 14.7 % (9.3-17.3); White Blood Count 11.2 T/CUMM (4-12)
[2020-08-20 06:37] LABS: Albumin 2.1 G/DL (3.4-5.0); Bilirubin,Total 0.4 MG/DL (0.2-1.0); Calcium 8.5 MG/DL (8.5-10.1); Osmolality,Calculated 298.7 MOS/KG (273-304); Potassium 3.4 MMOL/L (3.5-5.1); Total Protein 5.3 G/DL (6.4-8.2)
[2020-08-20] MEDS: INSULIN LISPRO 100 UNIT/ML SUBCUT SCH ×4 (06:56→18:02)
[2020-08-20] MEDS: LACTATED RINGERS 1,000 ML IV SCH ×2 (07:39→22:02)
[2020-08-20] MEDS ORDERED: METOPROLOL TARTRATE 5 MG/5 ML VIAL IV PRN (08:56)
[2020-08-20] MEDS ORDERED: ALBUTEROL/IPRATROPIUM 3 ML NEB RESP TX PRN (09:14)
[2020-08-20] MEDS: amLODIPine 10 MG TABLET PER TUBE SCH (09:20)
[2020-08-20] MEDS: POTASSIUM CHLORIDE 20 MEQ/15 ML UDCUP PER TUBE SCH ×3 (09:20→16:27)
[2020-08-20] MEDS: FUROSEMIDE 100 MG/10 ML VIAL IV SCH (09:21)
[2020-08-20] MEDS ORDERED: cloNIDine 0.1 MG TABLET PER TUBE SCH (15:00)
[2020-08-20] MEDS: LEVOFLOXACIN INJ 500 MG in PREMIX 1 EACH IV SCH (16:28)
[2020-08-20] MEDS: PANTOPRAZOLE 40 MG VIAL IV SCH (16:28)
[2020-08-20] MEDS: ENOXAPARIN 30 MG/0.3 ML SYRINGE SUBCUT SCH (16:59)
[2020-08-20] MEDS: cefTRIAXone 2,000 MG in SYRINGE 1 EACH IV SCH (17:00)
[2020-08-21 02:42] LABS: Allen Test Positive; Pt O2 Delivery Device Ventilator
[2020-08-21 02:43] LABS: ABG Base Excess 1.9 MMOL/L (-2.5-2.5); ABG HCO3 26.1 MMOL/L (20-26); ABG Oxygen Saturation 95.8 % (95-100); ABG PCO2 52.6 MM HG (35-48); ABG PH 7.341 (7.35-7.45); ABG PO2 84.7 MM HG (80-95); ABG TCO2 26.3 MMOL/L (23-27)
[2020-08-21] MEDS: INSULIN LISPRO 100 UNIT/ML SUBCUT SCH ×4 (02:48→17:59)
[2020-08-21 04:11] LABS: Basophils % 0.4 % (0.0-0.8); Eosinophils # 0.3 10*3/uL (0.0-0.87); Eosinophils % 3.4 % (0.00-10.9); Hematocrit 30.4 VOL% (35.7-47.0); Hemoglobin 8.9 GM/DL (12.0-16.0); Immature Granulocytes % 0.3 %; Immature Granulocytes Absolute 0.03 #; Lymphocytes # 1.5 10*3/uL (1.4-4.0); Lymphocytes % 15.4 % (21.3-54.2); Mean Corpuscular HGB Conc 29.3 GM/DL (32-36); Mean Corpuscular Volume 93.8 FL (87-102); Mean Platelet Volume 11.2 FL (9.6-12.0); Monocytes % 6.4 % (1.7-12.7); Neutrophils % 74.1 % (38.7-73.9); Platelet Count 203 T/CUMM (130-400); Red Blood Count 3.24 MC/CUMM (3.8-5.5); Red Cell Distribution Width 15.6 % (9.3-17.3); White Blood Count 9.5 T/CUMM (4-12)
[2020-08-21 04:25] LABS: Hypochromasia 1+
[2020-08-21 04:26] LABS: Microcytosis Slight; Platelet Estimate Adequate
[2020-08-21 04:34] LABS: Alanine Aminotransferase 9 U/L (13-56); Alkaline Phosphatase 76 U/L (45-117); Aspartate Amino Transferase 13 U/L (0-37); Bilirubin,Total < 0.39 MG/DL (0.2-1.0); Blood Urea Nitrogen 56 MG/DL (7-18); Calcium 8.2 MG/DL (8.5-10.1); Carbon Dioxide 29 MMOL/L (21-32); Estimated Glom Filtration Rate 23 ML/MIN; Glucose 120 MG/DL (74-106); Osmolality,Calculated 304.7 MOS/KG (273-304); Potassium 4.1 MMOL/L (3.5-5.1); Sodium 145 MMOL/L (136-145); Total Protein 5.3 G/DL (6.4-8.2)
[2020-08-21] MEDS ORDERED: MAGNESIUM SULF RIDER 2 GM in PREMIX 1 EACH IV PRN (05:12)
[2020-08-21] MEDS ORDERED: MAGNESIUM SULF RIDER 4 GM in PREMIX 1 EACH IV PRN (05:12)
[2020-08-21] MEDS ORDERED: MAGNESIUM SULF RIDER 4 GM in PREMIX 1 EACH IV ONE (09:00)
[2020-08-21] MEDS ORDERED: LEVOFLOXACIN 750 MG TABLET PER TUBE SCH (09:00)
[2020-08-21] MEDS ORDERED: cloNIDine 0.1 MG TABLET PO PRN (09:01)
[2020-08-21] MEDS: POTASSIUM CHLORIDE 20 MEQ/15 ML UDCUP PER TUBE SCH ×2 (09:06→12:43)
[2020-08-21] MEDS: amLODIPine 10 MG TABLET PER TUBE SCH (09:06)
[2020-08-21] MEDS: FUROSEMIDE 100 MG/10 ML VIAL IV SCH (09:07)
[2020-08-21] MEDS: FAMOTIDINE 8 MG/ML 50 ML/BOTTLE PER TUBE SCH ×2 (10:16→20:07)
[2020-08-21] MEDS: ENOXAPARIN 30 MG/0.3 ML SYRINGE SUBCUT SCH (17:10)
[2020-08-21] MEDS: cefTRIAXone 2,000 MG in SYRINGE 1 EACH IV SCH (17:10)
[2020-08-22] MEDS: INSULIN LISPRO 100 UNIT/ML SUBCUT SCH ×5 (00:24→23:58)
[2020-08-22 03:20] LABS: ABG Base Excess 2.2 MMOL/L (-2.5-2.5); ABG HCO3 26.3 MMOL/L (20-26); ABG Oxygen Saturation 88.7 % (95-100); ABG PO2 59.4 MM HG (80-95); ABG TCO2 26.8 MMOL/L (23-27); Allen Test Positive; Pt O2 Delivery Device Ventilator
[2020-08-22 04:33] LABS: Basophils % 0.3 % (0.0-0.8); Eosinophils # 0.3 10*3/uL (0.0-0.87); Hematocrit 27.2 VOL% (35.7-47.0); Hemoglobin 7.8 GM/DL (12.0-16.0); Immature Granulocytes % 0.7 %; Immature Granulocytes Absolute 0.06 #; Lymphocytes # 1.7 10*3/uL (1.4-4.0); Lymphocytes % 18.4 % (21.3-54.2); Mean Corpuscular HGB Conc 28.7 GM/DL (32-36); Mean Corpuscular Volume 95.8 FL (87-102); Mean Platelet Volume 10.8 FL (9.6-12.0); Monocytes % 9.2 % (1.7-12.7); Neutrophils % 68.4 % (38.7-73.9); Platelet Count 175 T/CUMM (130-400); Red Blood Count 2.84 MC/CUMM (3.8-5.5); Red Cell Distribution Width 15.4 % (9.3-17.3); White Blood Count 9.2 T/CUMM (4-12)
[2020-08-22 04:50] LABS: ABG Base Excess 3.5 MMOL/L (-2.5-2.5); ABG Oxygen Saturation 97.9 % (95-100); ABG PCO2 49.5 MM HG (35-48); ABG PH 7.386 (7.35-7.45); ABG PO2 106.2 MM HG (80-95); ABG TCO2 30.5 MMOL/L (23-27); Allen Test Positive; Pt O2 Delivery Device Ventilator
[2020-08-22 04:51] LABS: Calcium 8.3 MG/DL (8.5-10.1); Osmolality,Calculated 304.8 MOS/KG (273-304)
[2020-08-22 04:55] LABS: Alanine Aminotransferase < 9 U/L (13-56); Albumin 1.8 G/DL (3.4-5.0); Alkaline Phosphatase 73 U/L (45-117); Aspartate Amino Transferase 10 U/L (0-37); Blood Urea Nitrogen 64 MG/DL (7-18); Calcium 8.2 MG/DL (8.5-10.1); Carbon Dioxide 29 MMOL/L (21-32); Estimated Glom Filtration Rate 25 ML/MIN; Glucose 116 MG/DL (74-106); Sodium 143 MMOL/L (136-145); Total Protein 4.9 G/DL (6.4-8.2)
[2020-08-22 04:56] LABS: Hypochromasia 2+; Microcytosis 1+; Platelet Estimate Adequate
[2020-08-22] MEDS: FUROSEMIDE 100 MG/10 ML VIAL IV SCH (08:24)
[2020-08-22] MEDS: LINEZOLID 600 MG TABLET PER TUBE SCH ×2 (08:24→21:27)
[2020-08-22] MEDS: amLODIPine 10 MG TABLET PER TUBE SCH (08:24)
[2020-08-22] MEDS: FAMOTIDINE 8 MG/ML 50 ML/BOTTLE PER TUBE SCH ×2 (08:25→21:27)
[2020-08-22] MEDS: ALBUTEROL/IPRATROPIUM 3 ML NEB RESP TX SCH ×2 (12:06→19:17)
[2020-08-22] MEDS: SKIN HEALING OINT (AQUAPHOR) 50 GM TUBE TOP SCH (12:23)
[2020-08-22] MEDS: ENOXAPARIN 30 MG/0.3 ML SYRINGE SUBCUT SCH (17:28)
[2020-08-23] MEDS: ALBUTEROL/IPRATROPIUM 3 ML NEB RESP TX SCH ×4 (00:18→19:41)
[2020-08-23 04:49] LABS: ABG Base Excess 3.5 MMOL/L (-2.5-2.5); ABG HCO3 27.5 MMOL/L (20-26); ABG Oxygen Saturation 97.8 % (95-100); ABG PCO2 51.1 MM HG (35-48); ABG PH 7.369 (7.35-7.45); ABG PO2 96.4 MM HG (80-95); ABG TCO2 27.4 MMOL/L (23-27)
[2020-08-23 05:44] LABS: Basophils % 0.5 % (0.0-0.8); Eosinophils # 0.4 10*3/uL (0.0-0.87); Eosinophils % 4.1 % (0.00-10.9); Hematocrit 27.2 VOL% (35.7-47.0); Hemoglobin 7.9 GM/DL (12.0-16.0); Immature Granulocytes % 0.9 %; Immature Granulocytes Absolute 0.08 #; Lymphocytes # 1.4 10*3/uL (1.4-4.0); Lymphocytes % 16.6 % (21.3-54.2); Mean Corpuscular Volume 93.8 FL (87-102); Mean Platelet Volume 10.7 FL (9.6-12.0); Monocytes % 8.2 % (1.7-12.7); Neutrophils % 69.7 % (38.7-73.9); Platelet Count 186 T/CUMM (130-400); Red Cell Distribution Width 15.5 % (9.3-17.3); White Blood Count 8.6 T/CUMM (4-12)
[2020-08-23] MEDS: INSULIN LISPRO 100 UNIT/ML SUBCUT SCH ×3 (05:47→18:24)
[2020-08-23 06:18] LABS: Bilirubin,Total 0.8 MG/DL (0.2-1.0); Calcium 8.7 MG/DL (8.5-10.1); Osmolality,Calculated 307.7 MOS/KG (273-304); Potassium 3.7 MMOL/L (3.5-5.1); Total Protein 5.2 G/DL (6.4-8.2)
[2020-08-23] MEDS: cefTRIAXone 2,000 MG in SYRINGE 1 EACH IV SCH (08:03)
[2020-08-23] MEDS: SKIN HEALING OINT (AQUAPHOR) 50 GM TUBE TOP SCH (08:03)
[2020-08-23] MEDS: FUROSEMIDE 100 MG/10 ML VIAL IV SCH (08:03)
[2020-08-23] MEDS: amLODIPine 10 MG TABLET PER TUBE SCH (08:03)
[2020-08-23] MEDS: LINEZOLID 600 MG TABLET PER TUBE SCH ×2 (08:03→20:45)
[2020-08-23] MEDS: FAMOTIDINE 8 MG/ML 50 ML/BOTTLE PER TUBE SCH ×2 (08:04→20:45)
[2020-08-23] MEDS ORDERED: POTASSIUM CHLORIDE 20 MEQ/15 ML UDCUP PER TUBE ONE (13:11)
[2020-08-23] MEDS: ENOXAPARIN 30 MG/0.3 ML SYRINGE SUBCUT SCH (18:27)
[2020-08-24] MEDS: ALBUTEROL/IPRATROPIUM 3 ML NEB RESP TX SCH ×4 (00:43→19:06)
[2020-08-24] MEDS: INSULIN LISPRO 100 UNIT/ML SUBCUT SCH ×4 (00:59→18:01)
[2020-08-24 04:30] LABS: Basophils % 0.4 % (0.0-0.8); Eosinophils # 0.3 10*3/uL (0.0-0.87); Eosinophils % 3.9 % (0.00-10.9); Hematocrit 26.8 VOL% (35.7-47.0); Hemoglobin 7.6 GM/DL (12.0-16.0); Immature Granulocytes % 0.5 %; Immature Granulocytes Absolute 0.04 #; Lymphocytes # 1.2 10*3/uL (1.4-4.0); Lymphocytes % 14.5 % (21.3-54.2); Mean Corpuscular HGB Conc 28.4 GM/DL (32-36); Mean Corpuscular Volume 96.4 FL (87-102); Monocytes % 9.6 % (1.7-12.7); Neutrophils % 71.1 % (38.7-73.9); Platelet Count 159 T/CUMM (130-400); Red Blood Count 2.78 MC/CUMM (3.8-5.5); Red Cell Distribution Width 15.4 % (9.3-17.3); White Blood Count 8.1 T/CUMM (4-12)
[2020-08-24 04:36] LABS: Hypochromasia 1+; Microcytosis 1+; Polychromasia Slight
[2020-08-24 04:38] LABS: Ovalocytes Slight; Platelet Estimate Adequate
[2020-08-24 04:44] LABS: ABG Base Excess 4.1 MMOL/L (-2.5-2.5); ABG HCO3 31.2 MMOL/L (20-26); ABG Oxygen Saturation 87.8 % (95-100); ABG PCO2 63.3 MM HG (35-48); ABG PO2 60.2 MM HG (80-95); ABG TCO2 33.1 MMOL/L (23-27); Allen Test Positive; Pt O2 Delivery Device BIPAP
[2020-08-24 06:25] LABS: Calcium 8.7 MG/DL (8.5-10.1); Osmolality,Calculated 306.6 MOS/KG (273-304); Potassium 3.9 MMOL/L (3.5-5.1)
[2020-08-24] MEDS: FUROSEMIDE 100 MG/10 ML VIAL IV SCH (11:39)
[2020-08-24] MEDS: LINEZOLID 600 MG TABLET PO SCH ×2 (11:39→21:18)
[2020-08-24] MEDS: FAMOTIDINE 20 MG TABLET PO SCH ×2 (11:39→21:18)
[2020-08-24] MEDS: cefTRIAXone 2,000 MG in SYRINGE 1 EACH IV SCH (11:50)
[2020-08-24] MEDS: SKIN HEALING OINT (AQUAPHOR) 50 GM TUBE TOP SCH (11:50)
[2020-08-24] MEDS: amLODIPine 10 MG TABLET PO SCH (12:19)
[2020-08-24] MEDS: predniSONE 20 MG TABLET PO SCH (16:42)
[2020-08-24] MEDS: ENOXAPARIN 30 MG/0.3 ML SYRINGE SUBCUT SCH (17:59)
[2020-08-25] MEDS: INSULIN LISPRO 100 UNIT/ML SUBCUT SCH ×5 (00:30→21:10)
[2020-08-25] MEDS: ALBUTEROL/IPRATROPIUM 3 ML NEB RESP TX SCH ×4 (01:53→19:38)
[2020-08-25 04:37] LABS: Osmolality,Calculated 307.6 MOS/KG (273-304); Potassium 4.4 MMOL/L (3.5-5.1)
[2020-08-25] MEDS: amLODIPine 10 MG TABLET PO SCH (09:43)
[2020-08-25] MEDS: THEOPHYLLINE ER (24 HR) 400 MG CAPSULE PO SCH (09:51)
[2020-08-25] MEDS: FUROSEMIDE 100 MG/10 ML VIAL IV SCH (09:51)
[2020-08-25] MEDS: SKIN HEALING OINT (AQUAPHOR) 50 GM TUBE TOP SCH (09:51)
[2020-08-25] MEDS: predniSONE 20 MG TABLET PO SCH (09:51)
[2020-08-25] MEDS: FAMOTIDINE 20 MG TABLET PO SCH ×2 (09:51→21:10)
[2020-08-25] MEDS: LINEZOLID 600 MG TABLET PO SCH ×2 (09:51→21:10)
[2020-08-25] MEDS: cefTRIAXone 2,000 MG in SYRINGE 1 EACH IV SCH (10:00)
[2020-08-25] MEDS: GABAPENTIN 300 MG CAPSULE PO SCH ×2 (16:17→21:10)
[2020-08-25] MEDS: ENOXAPARIN 30 MG/0.3 ML SYRINGE SUBCUT SCH (16:50)
[2020-08-25] MEDS: levETIRAcetam 250 MG TABLET PO SCH (21:10)
[2020-08-25] MEDS: ATORVASTATIN 40 MG TABLET PO SCH (21:10)
[2020-08-26] MEDS: ALBUTEROL/IPRATROPIUM 3 ML NEB RESP TX SCH ×4 (01:08→19:23)
[2020-08-26 05:54] LABS: Basophils % 0.2 % (0.0-0.8); Eosinophils % 0.1 % (0.00-10.9); Hematocrit 26.8 VOL% (35.7-47.0); Hemoglobin 7.9 GM/DL (12.0-16.0); Immature Granulocytes Absolute 0.08 #; Lymphocytes # 1.2 10*3/uL (1.4-4.0); Mean Corpuscular HGB Conc 29.5 GM/DL (32-36); Mean Corpuscular Volume 94.7 FL (87-102); Mean Platelet Volume 11.2 FL (9.6-12.0); Monocytes % 8.5 % (1.7-12.7); Neutrophils % 75.2 % (38.7-73.9); Platelet Count 188 T/CUMM (130-400); Red Blood Count 2.83 MC/CUMM (3.8-5.5); Red Cell Distribution Width 15.2 % (9.3-17.3); White Blood Count 8.2 T/CUMM (4-12)
[2020-08-26 05:59] LABS: Calcium 9.3 MG/DL (8.5-10.1); Osmolality,Calculated 305.7 MOS/KG (273-304); Potassium 4.1 MMOL/L (3.5-5.1)
[2020-08-26 06:17] LABS: Hypochromasia 1+; Microcytosis 1+; Ovalocytes Slight
[2020-08-26 06:18] LABS: Platelet Estimate Adequate
[2020-08-26] MEDS ORDERED: DABIGATRAN ETEXILATE PO SCH (09:00)
[2020-08-26] MEDS: SKIN HEALING OINT (AQUAPHOR) 50 GM TUBE TOP SCH (09:43)
[2020-08-26] MEDS: CLOPIDOGREL 75 MG TABLET PO SCH (09:44)
[2020-08-26] MEDS: THEOPHYLLINE ER (24 HR) 400 MG CAPSULE PO SCH (09:44)
[2020-08-26] MEDS: ASPIRIN CHEW 81 MG TABLET PO SCH (09:44)
[2020-08-26] MEDS: GABAPENTIN 300 MG CAPSULE PO SCH ×3 (09:44→21:40)
[2020-08-26] MEDS: levETIRAcetam 250 MG TABLET PO SCH ×2 (09:44→21:40)
[2020-08-26] MEDS: INSULIN LISPRO 100 UNIT/ML SUBCUT SCH ×5 (09:44→21:39)
[2020-08-26] MEDS: predniSONE 20 MG TABLET PO SCH (09:45)
[2020-08-26] MEDS: LINEZOLID 600 MG TABLET PO SCH ×2 (09:45→21:41)
[2020-08-26] MEDS: amLODIPine 10 MG TABLET PO SCH (09:45)
[2020-08-26] MEDS: FUROSEMIDE 100 MG/10 ML VIAL IV SCH (09:46)
[2020-08-26] MEDS: cefTRIAXone 2,000 MG in SYRINGE 1 EACH IV SCH (09:46)
[2020-08-26] MEDS: FAMOTIDINE 20 MG TABLET PO SCH ×2 (09:48→21:41)
[2020-08-26] MEDS: ENOXAPARIN 30 MG/0.3 ML SYRINGE SUBCUT SCH (16:59)
[2020-08-26] MEDS: ATORVASTATIN 40 MG TABLET PO SCH (21:40)
[2020-08-27] MEDS: ALBUTEROL/IPRATROPIUM 3 ML NEB RESP TX SCH ×4 (00:17→19:22)
[2020-08-27 04:46] LABS: Allen Test Positive
[2020-08-27 04:50] LABS: ABG Base Excess 2.9 MMOL/L (-2.5-2.5); ABG HCO3 29.5 MMOL/L (20-26); ABG PH 7.364 (7.35-7.45); ABG PO2 88.2 MM HG (80-95); ABG TCO2 31.2 MMOL/L (23-27)
[2020-08-27 04:51] LABS: ABG Oxygen Saturation 97.9 % (95-100)
[2020-08-27 06:03] LABS: ABG Base Excess 6.7 MMOL/L (-2.5-2.5); ABG HCO3 33.4 MMOL/L (20-26); ABG Oxygen Saturation 99.6 % (95-100); ABG PCO2 62.5 MM HG (35-48); ABG PH 7.346 (7.35-7.45); ABG PO2 369.5 MM HG (80-95); ABG TCO2 35.3 MMOL/L (23-27); Allen Test Positive; Pt O2 Delivery Device BIPAP
[2020-08-27 06:12] LABS: Basophils % 0.3 % (0.0-0.8); Eosinophils % 0.1 % (0.00-10.9); Hematocrit 27.8 VOL% (35.7-47.0); Hemoglobin 8.1 GM/DL (12.0-16.0); Immature Granulocytes % 1.6 %; Immature Granulocytes Absolute 0.16 #; Lymphocytes # 1.3 10*3/uL (1.4-4.0); Lymphocytes % 13.1 % (21.3-54.2); Mean Corpuscular HGB Conc 29.1 GM/DL (32-36); Mean Corpuscular Volume 96.2 FL (87-102); Mean Platelet Volume 11.3 FL (9.6-12.0); Monocytes % 7.9 % (1.7-12.7); NRBC # 0.03 10*3/uL; Platelet Count 176 T/CUMM (130-400); Red Blood Count 2.89 MC/CUMM (3.8-5.5); Red Cell Distribution Width 15.3 % (9.3-17.3); White Blood Count 10.2 T/CUMM (4-12)
[2020-08-27 06:41] LABS: Calcium 9.1 MG/DL (8.5-10.1); Osmolality,Calculated 300.4 MOS/KG (273-304); Potassium 4.4 MMOL/L (3.5-5.1)
[2020-08-27] MEDS: FAMOTIDINE 20 MG TABLET PO SCH ×2 (08:40→20:02)
[2020-08-27] MEDS: ASPIRIN CHEW 81 MG TABLET PO SCH (08:40)
[2020-08-27] MEDS: THEOPHYLLINE ER (24 HR) 400 MG CAPSULE PO SCH (08:40)
[2020-08-27] MEDS: predniSONE 20 MG TABLET PO SCH (08:40)
[2020-08-27] MEDS: LINEZOLID 600 MG TABLET PO SCH ×2 (08:40→20:02)
[2020-08-27] MEDS: CLOPIDOGREL 75 MG TABLET PO SCH (08:40)
[2020-08-27] MEDS: GABAPENTIN 300 MG CAPSULE PO SCH ×3 (08:40→20:02)
[2020-08-27] MEDS: levETIRAcetam 250 MG TABLET PO SCH ×2 (08:41→20:02)
[2020-08-27] MEDS: SKIN HEALING OINT (AQUAPHOR) 50 GM TUBE TOP SCH (08:41)
[2020-08-27] MEDS: amLODIPine 10 MG TABLET PO SCH (08:41)
[2020-08-27] MEDS: INSULIN LISPRO 100 UNIT/ML SUBCUT SCH ×4 (08:43→20:03)
[2020-08-27] MEDS: FUROSEMIDE 100 MG/10 ML VIAL IV SCH (08:43)
[2020-08-27] MEDS: ONDANSETRON 4 MG/2 ML VIAL IV PRN (08:55)
[2020-08-27 09:32] LABS: ABG Base Excess 6.1 MMOL/L (-2.5-2.5); ABG Oxygen Saturation 99.6 % (95-100); ABG PH 7.332 (7.35-7.45); ABG TCO2 31.3 MMOL/L (23-27); Allen Test Positive; Pt O2 Delivery Device BIPAP
[2020-08-27] MEDS: cefTRIAXone 2,000 MG in SYRINGE 1 EACH IV SCH (15:23)
[2020-08-27] MEDS: FUROSEMIDE 40 MG/4 ML VIAL IV SCH (16:58)
[2020-08-27] MEDS: ENOXAPARIN 30 MG/0.3 ML SYRINGE SUBCUT SCH (16:58)
[2020-08-27] MEDS: ATORVASTATIN 40 MG TABLET PO SCH (20:02)
[2020-08-28] MEDS ORDERED: ALBUTEROL/IPRATROPIUM 3 ML NEB RESP TX ONE (00:02)
[2020-08-28] MEDS: ALBUTEROL/IPRATROPIUM 3 ML NEB RESP TX SCH ×4 (00:10→19:24)
[2020-08-28] MEDS: FUROSEMIDE 40 MG/4 ML VIAL IV SCH ×3 (02:51→16:42)
[2020-08-28 04:10] LABS: Basophils % 0.1 % (0.0-0.8); Eosinophils % 0.1 % (0.00-10.9); Hemoglobin 7.8 GM/DL (12.0-16.0); Immature Granulocytes % 1.2 %; Lymphocytes # 1.2 10*3/uL (1.4-4.0); Lymphocytes % 14.4 % (21.3-54.2); Mean Corpuscular HGB Conc 28.9 GM/DL (32-36); Mean Corpuscular Volume 95.1 FL (87-102); Mean Platelet Volume 10.3 FL (9.6-12.0); Monocytes % 5.7 % (1.7-12.7); Neutrophils % 78.5 % (38.7-73.9); Platelet Count 179 T/CUMM (130-400); Red Blood Count 2.84 MC/CUMM (3.8-5.5); White Blood Count 8.4 T/CUMM (4-12)
[2020-08-28 04:24] LABS: Calcium 8.7 MG/DL (8.5-10.1); Osmolality,Calculated 295.7 MOS/KG (273-304)
[2020-08-28 04:38] LABS: ABG Base Excess 7.4 MMOL/L (-2.5-2.5); ABG Oxygen Saturation 98.8 % (95-100); ABG PH 7.317 (7.35-7.45); ABG PO2 141.2 MM HG (80-95); ABG TCO2 37.2 MMOL/L (23-27); Allen Test Positive; Pt O2 Delivery Device BIPAP
[2020-08-28 09:09] LABS: ABG Base Excess 7.3 MMOL/L (-2.5-2.5); ABG HCO3 31.1 MMOL/L (20-26); ABG Oxygen Saturation 96.3 % (95-100); ABG PCO2 63.1 MM HG (35-48); ABG PH 7.345 (7.35-7.45); ABG PO2 82.7 MM HG (80-95); ABG TCO2 32.3 MMOL/L (23-27); Allen Test Positive; Pt O2 Delivery Device BIPAP
[2020-08-28] MEDS: cefTRIAXone 2,000 MG in SYRINGE 1 EACH IV SCH (09:10)
[2020-08-28] MEDS: amLODIPine 10 MG TABLET PO SCH (09:23)
[2020-08-28] MEDS: FAMOTIDINE 20 MG TABLET PO SCH ×2 (09:23→20:46)
[2020-08-28] MEDS: levETIRAcetam 250 MG TABLET PO SCH ×2 (09:23→20:46)
[2020-08-28] MEDS: CLOPIDOGREL 75 MG TABLET PO SCH (09:23)
[2020-08-28] MEDS: LINEZOLID 600 MG TABLET PO SCH ×2 (09:23→20:45)
[2020-08-28] MEDS: GABAPENTIN 300 MG CAPSULE PO SCH ×3 (09:23→20:45)
[2020-08-28] MEDS: ASPIRIN CHEW 81 MG TABLET PO SCH (09:24)
[2020-08-28] MEDS: THEOPHYLLINE ER (24 HR) 400 MG CAPSULE PO SCH (09:24)
[2020-08-28] MEDS: SKIN HEALING OINT (AQUAPHOR) 50 GM TUBE TOP SCH (09:24)
[2020-08-28] MEDS: predniSONE 20 MG TABLET PO SCH (09:24)
[2020-08-28] MEDS: INSULIN LISPRO 100 UNIT/ML SUBCUT SCH ×4 (09:24→20:47)
[2020-08-28] MEDS ORDERED: ACETAMINOPHEN 325 MG TABLET PO PRN (10:11)
[2020-08-28] MEDS: predniSONE 10 MG TABLET PO SCH (10:26)
[2020-08-28] MEDS: ENOXAPARIN 30 MG/0.3 ML SYRINGE SUBCUT SCH (16:42)
[2020-08-28] MEDS: ATORVASTATIN 40 MG TABLET PO SCH (20:46)
[2020-08-28] MEDS: INSULIN GLARGINE 100 UNIT/ML SUBCUT SCH (20:47)
[2020-08-29] MEDS: FUROSEMIDE 40 MG/4 ML VIAL IV SCH ×3 (00:10→17:47)
[2020-08-29] MEDS: ALBUTEROL/IPRATROPIUM 3 ML NEB RESP TX SCH ×4 (00:48→20:13)
[2020-08-29 05:25] LABS: Basophils % 0.5 % (0.0-0.8); Eosinophils # 0.1 10*3/uL (0.0-0.87); Eosinophils % 1.6 % (0.00-10.9); Hematocrit 27.7 VOL% (35.7-47.0); Immature Granulocytes % 0.9 %; Immature Granulocytes Absolute 0.08 #; Lymphocytes # 1.8 10*3/uL (1.4-4.0); Lymphocytes % 20.3 % (21.3-54.2); Mean Corpuscular HGB Conc 28.9 GM/DL (32-36); Mean Corpuscular Volume 94.5 FL (87-102); Mean Platelet Volume 10.5 FL (9.6-12.0); Monocytes % 6.4 % (1.7-12.7); Neutrophils % 70.3 % (38.7-73.9); Platelet Count 199 T/CUMM (130-400); Red Blood Count 2.93 MC/CUMM (3.8-5.5); Red Cell Distribution Width 14.8 % (9.3-17.3); White Blood Count 8.7 T/CUMM (4-12)
[2020-08-29 05:46] LABS: Calcium 8.8 MG/DL (8.5-10.1); Hypochromasia 1+; Microcytosis 1+; Osmolality,Calculated 298.3 MOS/KG (273-304); Potassium 3.8 MMOL/L (3.5-5.1); Risk Ratio 3.26; VLDL CHOLESTEROL 28.2 MG/DL
[2020-08-29 05:47] LABS: Ovalocytes Slight; Platelet Estimate Adequate; Polychromasia Slight
[2020-08-29 05:50] LABS: ABG HCO3 31.2 MMOL/L (20-26); ABG Oxygen Saturation 65.5 % (95-100); ABG PCO2 67.9 MM HG (35-48); ABG PH 7.336 (7.35-7.45); ABG TCO2 33.1 MMOL/L (23-27)
[2020-08-29 05:52] LABS: ABG PO2 38.7 MM HG (80-95)
[2020-08-29 07:08] LABS: ABG Base Excess 8.2 MMOL/L (-2.5-2.5); ABG HCO3 34.5 MMOL/L (20-26); ABG Oxygen Saturation 95.9 % (95-100); ABG PCO2 58.9 MM HG (35-48); ABG PH 7.385 (7.35-7.45); ABG PO2 84.1 MM HG (80-95); ABG TCO2 36.3 MMOL/L (23-27)
[2020-08-29] MEDS: INSULIN LISPRO 100 UNIT/ML SUBCUT SCH ×4 (08:23→20:28)
[2020-08-29] MEDS: amLODIPine 10 MG TABLET PO SCH (08:24)
[2020-08-29] MEDS: predniSONE 10 MG TABLET PO SCH (08:24)
[2020-08-29] MEDS: levETIRAcetam 250 MG TABLET PO SCH ×2 (08:24→20:24)
[2020-08-29] MEDS: cefTRIAXone 2,000 MG in SYRINGE 1 EACH IV SCH (08:24)
[2020-08-29] MEDS: GABAPENTIN 300 MG CAPSULE PO SCH ×3 (08:24→20:24)
[2020-08-29] MEDS: ASPIRIN CHEW 81 MG TABLET PO SCH (08:24)
[2020-08-29] MEDS: THEOPHYLLINE ER (24 HR) 400 MG CAPSULE PO SCH (08:24)
[2020-08-29] MEDS: CLOPIDOGREL 75 MG TABLET PO SCH (08:24)
[2020-08-29] MEDS: CHOLECALCIFEROL 400 UNIT TABLET PO SCH ×2 (08:24→20:24)
[2020-08-29] MEDS: FAMOTIDINE 20 MG TABLET PO SCH ×2 (08:24→20:24)
[2020-08-29] MEDS: SKIN HEALING OINT (AQUAPHOR) 50 GM TUBE TOP SCH (08:25)
[2020-08-29] MEDS: ONDANSETRON 4 MG/2 ML VIAL IV PRN (15:03)
[2020-08-29] MEDS: ENOXAPARIN 30 MG/0.3 ML SYRINGE SUBCUT SCH (17:47)
[2020-08-29] MEDS: ATORVASTATIN 40 MG TABLET PO SCH (20:24)
[2020-08-29] MEDS: INSULIN GLARGINE 100 UNIT/ML SUBCUT SCH (20:28)
[2020-08-30] MEDS: ALBUTEROL/IPRATROPIUM 3 ML NEB RESP TX SCH ×4 (00:18→19:37)
[2020-08-30] MEDS: FUROSEMIDE 40 MG/4 ML VIAL IV SCH ×2 (02:01→08:35)
[2020-08-30 05:26] LABS: Basophils % 0.2 % (0.0-0.8); Eosinophils # 0.1 10*3/uL (0.0-0.87); Eosinophils % 1.3 % (0.00-10.9); Hematocrit 27.2 VOL% (35.7-47.0); Immature Granulocytes % 0.7 %; Immature Granulocytes Absolute 0.07 #; Lymphocytes # 1.6 10*3/uL (1.4-4.0); Lymphocytes % 17.1 % (21.3-54.2); Mean Corpuscular HGB Conc 29.4 GM/DL (32-36); Mean Corpuscular Volume 93.5 FL (87-102); Mean Platelet Volume 11.3 FL (9.6-12.0); Monocytes % 7.4 % (1.7-12.7); NRBC # 0.02 10*3/uL; Neutrophils % 73.3 % (38.7-73.9); Platelet Count 172 T/CUMM (130-400); Red Blood Count 2.91 MC/CUMM (3.8-5.5); Red Cell Distribution Width 15.1 % (9.3-17.3); White Blood Count 9.4 T/CUMM (4-12)
[2020-08-30 05:44] LABS: Hypochromasia 1+
[2020-08-30 05:45] LABS: Microcytosis 1+; Ovalocytes Slight; Tear Drop Cells Slight
[2020-08-30 05:52] LABS: Calcium 8.3 MG/DL (8.5-10.1); Potassium 4.3 MMOL/L (3.5-5.1)
[2020-08-30] MEDS: INSULIN LISPRO 100 UNIT/ML SUBCUT SCH ×4 (08:34→20:55)
[2020-08-30] MEDS: cefTRIAXone 2,000 MG in SYRINGE 1 EACH IV SCH (08:34)
[2020-08-30] MEDS: THEOPHYLLINE ER (24 HR) 400 MG CAPSULE PO SCH (08:35)
[2020-08-30] MEDS: CLOPIDOGREL 75 MG TABLET PO SCH (08:35)
[2020-08-30] MEDS: CHOLECALCIFEROL 400 UNIT TABLET PO SCH ×2 (08:35→20:53)
[2020-08-30] MEDS: FAMOTIDINE 20 MG TABLET PO SCH ×2 (08:35→20:54)
[2020-08-30] MEDS: GABAPENTIN 300 MG CAPSULE PO SCH ×3 (08:35→20:54)
[2020-08-30] MEDS: ASPIRIN CHEW 81 MG TABLET PO SCH (08:35)
[2020-08-30] MEDS: amLODIPine 10 MG TABLET PO SCH (08:36)
[2020-08-30] MEDS: predniSONE 10 MG TABLET PO SCH (08:36)
[2020-08-30] MEDS: levETIRAcetam 250 MG TABLET PO SCH ×2 (08:36→20:54)
[2020-08-30] MEDS: SKIN HEALING OINT (AQUAPHOR) 50 GM TUBE TOP SCH (08:36)
[2020-08-30] MEDS ORDERED: TUBERCULIN SKIN TEST 0.1 ML SYRINGE INTRADERM ONE (09:24)
[2020-08-30] MEDS ORDERED: FUROSEMIDE 40 MG/4 ML VIAL IV SCH (16:00)
[2020-08-30] MEDS: FUROSEMIDE 40 MG TABLET PO SCH (17:28)
[2020-08-30] MEDS: ENOXAPARIN 30 MG/0.3 ML SYRINGE SUBCUT SCH (17:30)
[2020-08-30] MEDS: ATORVASTATIN 40 MG TABLET PO SCH (20:54)
[2020-08-30] MEDS: INSULIN GLARGINE 100 UNIT/ML SUBCUT SCH (20:54)
[2020-08-31] MEDS: ALBUTEROL/IPRATROPIUM 3 ML NEB RESP TX SCH ×3 (01:22→12:56)
[2020-08-31 06:51] LABS: Basophils % 0.3 % (0.0-0.8); Eosinophils # 0.2 10*3/uL (0.0-0.87); Eosinophils % 1.8 % (0.00-10.9); Hematocrit 26.2 VOL% (35.7-47.0); Hemoglobin 7.8 GM/DL (12.0-16.0); Immature Granulocytes % 0.7 %; Immature Granulocytes Absolute 0.09 #; Lymphocytes % 16.6 % (21.3-54.2); Mean Corpuscular HGB Conc 29.8 GM/DL (32-36); Mean Corpuscular Volume 92.6 FL (87-102); Mean Platelet Volume 10.4 FL (9.6-12.0); Monocytes % 7.6 % (1.7-12.7); NRBC # 0.02 10*3/uL; Platelet Count 176 T/CUMM (130-400); Red Blood Count 2.83 MC/CUMM (3.8-5.5); Red Cell Distribution Width 14.9 % (9.3-17.3); White Blood Count 12.2 T/CUMM (4-12)
[2020-08-31 07:14] LABS: Calcium 8.5 MG/DL (8.5-10.1)
[2020-08-31] MEDS: INSULIN LISPRO 100 UNIT/ML SUBCUT SCH ×2 (08:02→11:20)
[2020-08-31] MEDS: THEOPHYLLINE ER (24 HR) 400 MG CAPSULE PO SCH (08:40)
[2020-08-31] MEDS: FAMOTIDINE 20 MG TABLET PO SCH (08:40)
[2020-08-31] MEDS: levETIRAcetam 250 MG TABLET PO SCH (08:40)
[2020-08-31] MEDS: ASPIRIN CHEW 81 MG TABLET PO SCH (08:40)
[2020-08-31] MEDS: amLODIPine 10 MG TABLET PO SCH (08:40)
[2020-08-31] MEDS: CHOLECALCIFEROL 400 UNIT TABLET PO SCH (08:40)
[2020-08-31] MEDS: GABAPENTIN 300 MG CAPSULE PO SCH ×2 (08:40→15:38)
[2020-08-31] MEDS: CLOPIDOGREL 75 MG TABLET PO SCH (08:40)
[2020-08-31] MEDS: FUROSEMIDE 40 MG TABLET PO SCH ×2 (08:40→15:40)
[2020-08-31] MEDS ORDERED: predniSONE 5 MG TABLET PO SCH (09:00)
[2020-08-31] MEDS: SKIN HEALING OINT (AQUAPHOR) 50 GM TUBE TOP SCH (10:30)
[2020-08-31 10:39] LABS: Folate 7.3 NG/ML (5.38-24.0)
[2020-08-31 11:02] LABS: Bilirubin,Urine Negative (Negative); Blood, Urine Negative (Negative); Glucose,Urine (UA) 50 mg/dL (Negative); Ketones,Urine Negative (Negative); Mucus,Urine Occasional /LPF (Occasional); Nitrite,Urine Negative (Negative); Protein,Urine >=500 MG/DL; RBC,Urine 2 /HPF (0-4); Squamous Epithelial Cell,Urine Occasional /HPF (0-10); Urine Appearance CLEAR (Clear); Urine Color Yellow (Yellow); Urine Urobilinogen < 2.0 EU/DL (0.2-1.0); WBC,Urine <1 /HPF (0-6)
[2020-08-31 11:28] LABS: % Iron Saturation 33.2 % (18-50); Ferritin 116.4 ng/ml (8-252)
[2020-08-31 15:43] VITALS: BP 109/66
== END 2020-08-31 17:00 | DRG 208 ==
LOC: N.ICU 16:12 → SUATTDRO 16:12 → N.5E 08-26 16:04 → N.CC 08-27 04:37 → N.3E 08-28 17:38
PROVIDERS: ADMIT Internal Medicine; ATTEND Internal Medicine

== ENCOUNTER 2020-09-06 17:48 | Inpatient (IN) ==
[2020-09-06 19:49] LABS: Basophils # 0.1 10*3/uL (0.0-0.2); Basophils % 0.4 % (0.0-0.8); Eosinophils % 0.3 % (0.00-10.9); Hematocrit 28.6 VOL% (35.7-47.0); Hemoglobin 8.2 GM/DL (12.0-16.0); Immature Granulocytes % 7.8 %; Immature Granulocytes Absolute 1.08 #; Lymphocytes # 0.6 10*3/uL (1.4-4.0); Lymphocytes % 4.6 % (21.3-54.2); Mean Corpuscular HGB Conc 28.7 GM/DL (32-36); Mean Platelet Volume 10.8 FL (9.6-12.0); Monocytes % 2.6 % (1.7-12.7); NRBC # 0.21 10*3/uL; Neutrophils % 84.3 % (38.7-73.9); Platelet Count 286 T/CUMM (130-400); Red Blood Count 2.98 MC/CUMM (3.8-5.5); Red Cell Distribution Width 15.9 % (9.3-17.3); White Blood Count 13.9 T/CUMM (4-12)
[2020-09-06 20:04] LABS: Alanine Aminotransferase 14 U/L (13-56); Albumin 2.8 G/DL (3.4-5.0); Alkaline Phosphatase 78 U/L (45-117); Aspartate Amino Transferase 16 U/L (0-37); Blood Urea Nitrogen 33 MG/DL (7-18); Calcium 8.8 MG/DL (8.5-10.1); Carbon Dioxide 29 MMOL/L (21-32); Estimated Glom Filtration Rate 23 ML/MIN; Glucose 215 MG/DL (74-106); Sodium 136 MMOL/L (136-145); Total Protein 6.8 G/DL (6.4-8.2)
[2020-09-06 20:05] LABS: Troponin I 0.663 NG/ML (0.00-0.045)
[2020-09-06 20:33] LABS: Anisocytosis 4+; Hypochromasia 4+; Lymphocytes 3 % (20-55); Metamyelocytes 6 %; Microcytosis 1+; Nucleated Red Blood Cells 2 (0-5); Ovalocytes Slight; Platelet Estimate Normal; Poikilocytosis 2+; Segmented Neutrophils 87 % (50-85); Tear Drop Cells 1+
[2020-09-06 20:34] LABS: Total Cells Counted 100
[2020-09-06 20:37] LABS: INR 1.1; PT Patient Result 11.4 SECS (9.8-11.9)
[2020-09-06 20:44] LABS: Partial Thromboplastin Time < 20.0 SECS (23.9-33.8)
[2020-09-06] MEDS ORDERED: FUROSEMIDE 40 MG/4 ML VIAL IV STA (21:25)
[2020-09-06] MEDS ORDERED: DEXTROSE 50% 25 GM/50 ML VIAL IV PRN (22:37)
[2020-09-06] MEDS ORDERED: GLUCAGON 1 MG VIAL IM PRN (22:37)
[2020-09-06] MEDS ORDERED: ONDANSETRON 4 MG/2 ML VIAL IV PRN (22:50)
[2020-09-06] MEDS ORDERED: DOCUSATE SODIUM 100 MG CAPSULE PO PRN (22:50)
[2020-09-06] MEDS ORDERED: ACETAMINOPHEN 325 MG TABLET PO PRN (22:50)
[2020-09-07] MEDS ORDERED: MORPHINE 4 MG/1 ML VIAL IV PRN (00:14)
[2020-09-07] MEDS ORDERED: NITROGLYCERIN SL 0.4 MG TABLET SL PRN (00:14)
[2020-09-07] MEDS: HEPARIN 5,000 UNIT/1 ML VIAL SUBCUT SCH ×3 (01:02→17:12)
[2020-09-07 01:15] LABS: Bilirubin,Urine Negative (Negative); Blood, Urine Moderate mg/dL (Negative); Glucose,Urine (UA) Negative (Negative); Ketones,Urine 5 mg/dL (Negative); Mucus,Urine Occasional /LPF (Occasional); Nitrite,Urine Negative (Negative); Protein,Urine >=500 MG/DL; RBC,Urine 63 /HPF (0-4); Squamous Epithelial Cell,Urine Occasional /HPF (0-10); Urine Appearance CLOUDY (Clear); Urine Color Yellow (Yellow); Urine Specific Gravity 1.015 (1.001-1.035); Urine Urobilinogen < 2.0 EU/DL (0.2-1.0); WBC,Urine 32 /HPF (0-6)
[2020-09-07 05:05] LABS: Basophils % 0.3 % (0.0-0.8); Hematocrit 24.2 VOL% (35.7-47.0); Immature Granulocytes % 6.7 %; Immature Granulocytes Absolute 0.61 #; Lymphocytes # 0.7 10*3/uL (1.4-4.0); Lymphocytes % 7.8 % (21.3-54.2); Mean Corpuscular HGB Conc 28.9 GM/DL (32-36); Mean Corpuscular Volume 94.5 FL (87-102); Mean Platelet Volume 10.8 FL (9.6-12.0); Monocytes % 7.7 % (1.7-12.7); NRBC # 0.19 10*3/uL; Neutrophils % 77.5 % (38.7-73.9); Platelet Count 259 T/CUMM (130-400); Red Blood Count 2.56 MC/CUMM (3.8-5.5); Red Cell Distribution Width 15.9 % (9.3-17.3); White Blood Count 9.1 T/CUMM (4-12)
[2020-09-07 05:22] LABS: Calcium 8.1 MG/DL (8.5-10.1); Osmolality,Calculated 291.5 MOS/KG (273-304); Potassium 4.1 MMOL/L (3.5-5.1)
[2020-09-07 05:45] LABS: Band Neutrophils 1 % (0-10); Hypochromasia 2+; Lymphocytes 6 % (20-55); Microcytosis Slight; Nucleated Red Blood Cells 2 (0-5); Ovalocytes Slight; Platelet Estimate Adequate; Segmented Neutrophils 87 % (50-85); Total Cells Counted 100
[2020-09-07] MEDS: INSULIN LISPRO 100 UNIT/ML SUBCUT SCH ×4 (10:11→22:02)
[2020-09-07] MEDS: FUROSEMIDE 40 MG/4 ML VIAL IV SCH ×2 (10:11→17:12)
[2020-09-07] MEDS: NEBIVOLOL 5 MG TABLET PO SCH (14:27)
[2020-09-07] MEDS: ASPIRIN CHEW 81 MG TABLET PO SCH (14:27)
[2020-09-07] MEDS: DESITIN 4OZ/NYSTATIN 15 GRAM MIXTURE PASTE TOP SCH ×2 (17:13→21:40)
[2020-09-07] MEDS: ATORVASTATIN 40 MG TABLET PO SCH (21:39)
[2020-09-08] MEDS: HEPARIN 5,000 UNIT/1 ML VIAL SUBCUT SCH ×3 (02:10→17:18)
[2020-09-08 05:35] LABS: Basophils % 0.2 % (0.0-0.8); Eosinophils # 0.1 10*3/uL (0.0-0.87); Eosinophils % 0.7 % (0.00-10.9); Hematocrit 24.3 VOL% (35.7-47.0); Immature Granulocytes % 1.7 %; Immature Granulocytes Absolute 0.15 #; Lymphocytes # 1.9 10*3/uL (1.4-4.0); Lymphocytes % 21.9 % (21.3-54.2); Mean Corpuscular HGB Conc 28.8 GM/DL (32-36); Mean Corpuscular Volume 94.6 FL (87-102); Mean Platelet Volume 10.8 FL (9.6-12.0); NRBC # 0.09 10*3/uL; Neutrophils % 64.5 % (38.7-73.9); Platelet Count 300 T/CUMM (130-400); Red Blood Count 2.57 MC/CUMM (3.8-5.5); Red Cell Distribution Width 16.1 % (9.3-17.3); White Blood Count 8.6 T/CUMM (4-12)
[2020-09-08 05:57] LABS: Calcium 8.2 MG/DL (8.5-10.1); Hypochromasia 2+; Osmolality,Calculated 289.5 MOS/KG (273-304); Ovalocytes Few; Potassium 3.5 MMOL/L (3.5-5.1)
[2020-09-08] MEDS: INSULIN LISPRO 100 UNIT/ML SUBCUT SCH ×4 (07:12→21:08)
[2020-09-08] MEDS: FUROSEMIDE 40 MG/4 ML VIAL IV SCH (07:56)
[2020-09-08] MEDS: NEBIVOLOL 5 MG TABLET PO SCH ×2 (07:57→09:18)
[2020-09-08] MEDS: ASPIRIN CHEW 81 MG TABLET PO SCH ×2 (07:57→09:42)
[2020-09-08] MEDS: DESITIN 4OZ/NYSTATIN 15 GRAM MIXTURE PASTE TOP SCH ×2 (09:42→21:08)
[2020-09-08] MEDS ORDERED: CETIRIZINE 10 MG TABLET PO PRN (12:49)
[2020-09-08] MEDS: GABAPENTIN 300 MG CAPSULE PO SCH ×2 (14:35→21:07)
[2020-09-08] MEDS: cefTRIAXone 1,000 MG in SODIUM CHLORIDE 0.9% 100 ML IV SCH (14:37)
[2020-09-08] MEDS: AZITHROMYCIN INJ 500 MG in SODIUM CHLORIDE 0.9% 250 ML IV SCH (14:38)
[2020-09-08] MEDS: BUDESONIDE 0.5 MG/2 ML NEB RESP TX SCH (19:17)
[2020-09-08] MEDS ORDERED: traZODone 50 MG TABLET PO SCH (21:00)
[2020-09-08] MEDS: levETIRAcetam 250 MG TABLET PO SCH (21:07)
[2020-09-08] MEDS: FLUTICASONE 50 MCG NASAL SPRAY 16 GM BOTTLE BOTH NARES SCH (21:07)
[2020-09-08] MEDS: CHOLECALCIFEROL 400 UNIT TABLET PO SCH (21:07)
[2020-09-08] MEDS: ATORVASTATIN 40 MG TABLET PO SCH (21:07)
[2020-09-09] MEDS: HEPARIN 5,000 UNIT/1 ML VIAL SUBCUT SCH ×3 (00:12→16:01)
[2020-09-09 03:51] LABS: Basophils % 0.2 % (0.0-0.8); Eosinophils # 0.2 10*3/uL (0.0-0.87); Eosinophils % 2.1 % (0.00-10.9); Hematocrit 25.1 VOL% (35.7-47.0); Hemoglobin 7.3 GM/DL (12.0-16.0); Immature Granulocytes Absolute 0.08 #; Lymphocytes # 2.4 10*3/uL (1.4-4.0); Lymphocytes % 29.3 % (21.3-54.2); Mean Corpuscular HGB Conc 29.1 GM/DL (32-36); Mean Corpuscular Volume 92.6 FL (87-102); Mean Platelet Volume 10.3 FL (9.6-12.0); Monocytes % 9.4 % (1.7-12.7); NRBC # 0.07 10*3/uL; Platelet Count 272 T/CUMM (130-400); Red Blood Count 2.71 MC/CUMM (3.8-5.5); White Blood Count 8.1 T/CUMM (4-12)
[2020-09-09 04:11] LABS: Calcium 8.5 MG/DL (8.5-10.1); Potassium 3.6 MMOL/L (3.5-5.1)
[2020-09-09] MEDS: BUDESONIDE 0.5 MG/2 ML NEB RESP TX SCH ×2 (07:13→19:48)
[2020-09-09] MEDS ORDERED: NEBIVOLOL 5 MG TABLET PO SCH (09:00)
[2020-09-09] MEDS: CHOLECALCIFEROL 400 UNIT TABLET PO SCH ×2 (09:36→21:37)
[2020-09-09] MEDS: levETIRAcetam 250 MG TABLET PO SCH ×2 (09:36→21:37)
[2020-09-09] MEDS: THEOPHYLLINE ER (24 HR) 400 MG CAPSULE PO SCH (09:36)
[2020-09-09] MEDS: CLOPIDOGREL 75 MG TABLET PO SCH (09:36)
[2020-09-09] MEDS: ASPIRIN CHEW 81 MG TABLET PO SCH (09:36)
[2020-09-09] MEDS: GABAPENTIN 300 MG CAPSULE PO SCH ×3 (09:37→21:37)
[2020-09-09] MEDS: DESITIN 4OZ/NYSTATIN 15 GRAM MIXTURE PASTE TOP SCH ×2 (09:39→21:38)
[2020-09-09] MEDS: INSULIN LISPRO 100 UNIT/ML SUBCUT SCH ×4 (09:39→22:18)
[2020-09-09] MEDS: FLUTICASONE 50 MCG NASAL SPRAY 16 GM BOTTLE BOTH NARES SCH ×2 (09:40→21:38)
[2020-09-09] MEDS: FUROSEMIDE 40 MG/4 ML VIAL IV SCH ×4 (10:54→18:18)
[2020-09-09] MEDS: cefTRIAXone 1,000 MG in SODIUM CHLORIDE 0.9% 100 ML IV SCH (12:20)
[2020-09-09] MEDS: AZITHROMYCIN INJ 500 MG in SODIUM CHLORIDE 0.9% 250 ML IV SCH (13:18)
[2020-09-09] MEDS: ATORVASTATIN 40 MG TABLET PO SCH (21:37)
[2020-09-10] MEDS: HEPARIN 5,000 UNIT/1 ML VIAL SUBCUT SCH ×3 (00:36→16:19)
[2020-09-10 05:26] LABS: Basophils % 0.3 % (0.0-0.8); Eosinophils # 0.3 10*3/uL (0.0-0.87); Eosinophils % 3.9 % (0.00-10.9); Hematocrit 25.6 VOL% (35.7-47.0); Hemoglobin 7.2 GM/DL (12.0-16.0); Immature Granulocytes % 0.9 %; Immature Granulocytes Absolute 0.08 #; Lymphocytes # 2.3 10*3/uL (1.4-4.0); Lymphocytes % 26.2 % (21.3-54.2); Mean Corpuscular HGB Conc 28.1 GM/DL (32-36); Mean Corpuscular Volume 94.1 FL (87-102); Mean Platelet Volume 10.8 FL (9.6-12.0); Monocytes % 8.4 % (1.7-12.7); NRBC # 0.03 10*3/uL; Neutrophils % 60.3 % (38.7-73.9); Platelet Count 291 T/CUMM (130-400); Red Blood Count 2.72 MC/CUMM (3.8-5.5); Red Cell Distribution Width 16.1 % (9.3-17.3); White Blood Count 8.7 T/CUMM (4-12)
[2020-09-10 05:57] LABS: Calcium 8.5 MG/DL (8.5-10.1); Potassium 3.5 MMOL/L (3.5-5.1)
[2020-09-10 06:48] LABS: Anisocytosis 1+; Hypochromasia 3+; Microcytosis 1+
[2020-09-10 06:49] LABS: Platelet Estimate Adequate
[2020-09-10] MEDS: BUDESONIDE 0.5 MG/2 ML NEB RESP TX SCH ×2 (08:00→19:41)
[2020-09-10] MEDS: INSULIN LISPRO 100 UNIT/ML SUBCUT SCH ×5 (08:23→21:09)
[2020-09-10] MEDS: CLOPIDOGREL 75 MG TABLET PO SCH (08:23)
[2020-09-10] MEDS: ASPIRIN CHEW 81 MG TABLET PO SCH (08:23)
[2020-09-10] MEDS: THEOPHYLLINE ER (24 HR) 400 MG CAPSULE PO SCH (08:23)
[2020-09-10] MEDS: CHOLECALCIFEROL 400 UNIT TABLET PO SCH ×2 (08:23→20:36)
[2020-09-10] MEDS: GABAPENTIN 300 MG CAPSULE PO SCH ×3 (08:24→20:36)
[2020-09-10] MEDS: FUROSEMIDE 40 MG/4 ML VIAL IV SCH ×2 (08:24→16:18)
[2020-09-10] MEDS: levETIRAcetam 250 MG TABLET PO SCH ×2 (08:24→20:36)
[2020-09-10] MEDS: FLUTICASONE 50 MCG NASAL SPRAY 16 GM BOTTLE BOTH NARES SCH ×2 (08:41→20:38)
[2020-09-10] MEDS: DESITIN 4OZ/NYSTATIN 15 GRAM MIXTURE PASTE TOP SCH ×2 (08:41→20:39)
[2020-09-10] MEDS: cefTRIAXone 1,000 MG in SODIUM CHLORIDE 0.9% 100 ML IV SCH (13:57)
[2020-09-10] MEDS: AZITHROMYCIN INJ 500 MG in SODIUM CHLORIDE 0.9% 250 ML IV SCH (14:38)
[2020-09-10] MEDS: ATORVASTATIN 40 MG TABLET PO SCH (20:36)
[2020-09-11] MEDS: HEPARIN 5,000 UNIT/1 ML VIAL SUBCUT SCH ×3 (00:59→15:53)
[2020-09-11 05:44] LABS: Basophils % 0.4 % (0.0-0.8); Eosinophils # 0.3 10*3/uL (0.0-0.87); Eosinophils % 3.7 % (0.00-10.9); Hematocrit 24.3 VOL% (35.7-47.0); Hemoglobin 7.1 GM/DL (12.0-16.0); Immature Granulocytes % 0.8 %; Immature Granulocytes Absolute 0.06 #; Lymphocytes # 1.9 10*3/uL (1.4-4.0); Lymphocytes % 24.6 % (21.3-54.2); Mean Corpuscular HGB Conc 29.2 GM/DL (32-36); Mean Corpuscular Volume 93.1 FL (87-102); Mean Platelet Volume 10.5 FL (9.6-12.0); Monocytes % 8.3 % (1.7-12.7); NRBC # 0.02 10*3/uL; Neutrophils % 62.2 % (38.7-73.9); Platelet Count 267 T/CUMM (130-400); Red Blood Count 2.61 MC/CUMM (3.8-5.5); White Blood Count 7.6 T/CUMM (4-12)
[2020-09-11 06:07] LABS: Calcium 8.6 MG/DL (8.5-10.1); Osmolality,Calculated 282.8 MOS/KG (273-304); Potassium 3.8 MMOL/L (3.5-5.1)
[2020-09-11] MEDS: BUDESONIDE 0.5 MG/2 ML NEB RESP TX SCH ×2 (06:50→19:48)
[2020-09-11] MEDS: INSULIN LISPRO 100 UNIT/ML SUBCUT SCH ×4 (07:57→21:18)
[2020-09-11] MEDS: FUROSEMIDE 40 MG/4 ML VIAL IV SCH ×2 (09:00→15:53)
[2020-09-11] MEDS: FLUTICASONE 50 MCG NASAL SPRAY 16 GM BOTTLE BOTH NARES SCH ×2 (09:11→21:17)
[2020-09-11] MEDS: GABAPENTIN 300 MG CAPSULE PO SCH ×3 (09:11→21:19)
[2020-09-11] MEDS: levETIRAcetam 250 MG TABLET PO SCH ×2 (09:11→21:22)
[2020-09-11] MEDS: CLOPIDOGREL 75 MG TABLET PO SCH (09:11)
[2020-09-11] MEDS: THEOPHYLLINE ER (24 HR) 400 MG CAPSULE PO SCH (09:11)
[2020-09-11] MEDS: ASPIRIN CHEW 81 MG TABLET PO SCH (09:11)
[2020-09-11] MEDS: CHOLECALCIFEROL 400 UNIT TABLET PO SCH ×2 (09:11→21:19)
[2020-09-11] MEDS: DESITIN 4OZ/NYSTATIN 15 GRAM MIXTURE PASTE TOP SCH ×2 (09:12→21:18)
[2020-09-11] MEDS: cefTRIAXone 1,000 MG in SODIUM CHLORIDE 0.9% 100 ML IV SCH (13:24)
[2020-09-11] MEDS: AZITHROMYCIN INJ 500 MG in SODIUM CHLORIDE 0.9% 250 ML IV SCH (14:10)
[2020-09-11] MEDS: ATORVASTATIN 40 MG TABLET PO SCH (21:23)
[2020-09-12] MEDS: HEPARIN 5,000 UNIT/1 ML VIAL SUBCUT SCH ×2 (00:30→08:25)
[2020-09-12 05:48] LABS: Basophils % 0.3 % (0.0-0.8); Eosinophils # 0.3 10*3/uL (0.0-0.87); Eosinophils % 4.1 % (0.00-10.9); Hemoglobin 7.5 GM/DL (12.0-16.0); Immature Granulocytes % 0.7 %; Immature Granulocytes Absolute 0.05 #; Lymphocytes # 1.6 10*3/uL (1.4-4.0); Lymphocytes % 21.1 % (21.3-54.2); Mean Corpuscular HGB Conc 28.8 GM/DL (32-36); Mean Corpuscular Volume 92.5 FL (87-102); Mean Platelet Volume 10.2 FL (9.6-12.0); Monocytes % 6.4 % (1.7-12.7); Neutrophils % 67.4 % (38.7-73.9); Platelet Count 295 T/CUMM (130-400); Red Blood Count 2.81 MC/CUMM (3.8-5.5); Red Cell Distribution Width 16.3 % (9.3-17.3); White Blood Count 7.6 T/CUMM (4-12)
[2020-09-12 06:08] LABS: Calcium 8.7 MG/DL (8.5-10.1); Osmolality,Calculated 291.3 MOS/KG (273-304); Potassium 3.7 MMOL/L (3.5-5.1)
[2020-09-12 06:14] LABS: Hypochromasia 1+; Microcytosis 1+; Ovalocytes Slight; Platelet Estimate Normal; Polychromasia Slight; Tear Drop Cells Slight
[2020-09-12] MEDS: BUDESONIDE 0.5 MG/2 ML NEB RESP TX SCH (08:00)
[2020-09-12] MEDS ORDERED: MAGNESIUM SULF RIDER 2 GM/50 ML PREMIX IV ONE (08:07)
[2020-09-12] MEDS: INSULIN LISPRO 100 UNIT/ML SUBCUT SCH ×2 (08:25→13:00)
[2020-09-12] MEDS: FUROSEMIDE 40 MG/4 ML VIAL IV SCH (08:25)
[2020-09-12] MEDS: CHOLECALCIFEROL 400 UNIT TABLET PO SCH (08:25)
[2020-09-12] MEDS: ASPIRIN CHEW 81 MG TABLET PO SCH (08:25)
[2020-09-12] MEDS: THEOPHYLLINE ER (24 HR) 400 MG CAPSULE PO SCH (08:25)
[2020-09-12] MEDS: CLOPIDOGREL 75 MG TABLET PO SCH (08:25)
[2020-09-12] MEDS: GABAPENTIN 300 MG CAPSULE PO SCH ×2 (08:25→15:59)
[2020-09-12] MEDS: FLUTICASONE 50 MCG NASAL SPRAY 16 GM BOTTLE BOTH NARES SCH (08:26)
[2020-09-12] MEDS: DESITIN 4OZ/NYSTATIN 15 GRAM MIXTURE PASTE TOP SCH (08:26)
[2020-09-12] MEDS: levETIRAcetam 250 MG TABLET PO SCH (08:26)
[2020-09-12 11:52] VITALS: BP 124/55
[2020-09-12] MEDS: AZITHROMYCIN INJ 500 MG in SODIUM CHLORIDE 0.9% 250 ML IV SCH (13:18)
[2020-09-12] MEDS: cefTRIAXone 1,000 MG in SODIUM CHLORIDE 0.9% 100 ML IV SCH (13:18)
[2020-09-12] MEDS ORDERED: METOPROLOL SUCCINATE XL 25 MG TABLET PO SCH (21:00)
== END 2020-09-12 15:59 | DRG 291 ==
LOC: EDBD → EDUNIT# → N.ED 17:48 → N.EDINP 21:57 → SUATTDRO 21:57 → N.3E 09-07 01:05
PROVIDERS: ADMIT Internal Medicine; ATTEND Internal Medicine

== ENCOUNTER 2021-05-03 00:43 | Inpatient (IN) ==
[2021-05-03] MEDS ORDERED: SODIUM CHLORIDE 0.9% 1,000 ML IV STA ×2 (01:18→05:07)
[2021-05-03] MEDS ORDERED: PIPERACILLIN/TAZOBACTAM 3,375 MG in SODIUM CHLORIDE 0.9% 100 ML IV STA (01:18)
[2021-05-03] MEDS ORDERED: ONDANSETRON 4 MG/2 ML VIAL IV STA (01:22)
[2021-05-03] MEDS ORDERED: LIDOCAINE 2% TOP JELLY 5 ML TUBE TOP ONE (01:53)
[2021-05-03 04:25] LABS: Basophils # 0.1 10*3/uL (0.0-0.2); Basophils % 0.4 % (0.0-0.8); Eosinophils # 0.3 10*3/uL (0.0-0.87); Eosinophils % 1.7 % (0.00-10.9); Hematocrit 26.2 VOL% (35.7-47.0); Hemoglobin 7.8 GM/DL (12.0-16.0); Immature Granulocytes Absolute 0.16 #; Lymphocytes # 1.7 10*3/uL (1.4-4.0); Lymphocytes % 10.8 % (21.3-54.2); Mean Corpuscular HGB Conc 29.8 GM/DL (32-36); Mean Corpuscular Volume 91.9 FL (87-102); Mean Platelet Volume 10.9 FL (9.6-12.0); Monocytes % 6.3 % (1.7-12.7); Neutrophils % 79.8 % (38.7-73.9); Platelet Count 314 T/CUMM (130-400); Red Blood Count 2.85 MC/CUMM (3.8-5.5); Red Cell Distribution Width 14.5 % (9.3-17.3); White Blood Count 15.3 T/CUMM (4-12)
[2021-05-03 04:52] LABS: Alanine Aminotransferase 9 U/L (13-56); Albumin 2.9 G/DL (3.4-5.0); Alkaline Phosphatase 74 U/L (45-117); Aspartate Amino Transferase 8 U/L (0-37); Bilirubin,Total < 0.39 MG/DL (0.20-1.00); Blood Urea Nitrogen 81 MG/DL (7-18); Carbon Dioxide 21 MMOL/L (21-32); Estimated Glom Filtration Rate 15 ML/MIN; Glucose 321 MG/DL (74-106); Potassium 5.6 MMOL/L (3.5-5.1); Sodium 136 MMOL/L (136-145); Total Protein 6.8 G/DL (6.4-8.2)
[2021-05-03] MEDS ORDERED: INSULIN REGULAR 100 UNIT/ML IV ONE ×2 (05:06→14:28)
[2021-05-03] MEDS ORDERED: SODIUM CHLORIDE 0.9% 500 ML IV STA (05:18)
[2021-05-03] MEDS ORDERED: GLUCAGON 1 MG VIAL IM PRN ×2 (05:21→11:32)
[2021-05-03] MEDS ORDERED: DEXTROSE 50% 25 GM/50 ML VIAL IV PRN ×2 (05:21→11:32)
[2021-05-03] MEDS ORDERED: DEXTROSE 50% 25 GM/50 ML SYRINGE IV PRN (05:21)
[2021-05-03] MEDS ORDERED: ENOXAPARIN 30 MG/0.3 ML SYRINGE SUBCUT SCH (05:30)
[2021-05-03] MEDS ORDERED: INSULIN REGULAR 10 UNIT, CALCIUM GLUCONATE 1,000 MG in DEXTROSE 10% 250 ML IV ONE (06:00)
[2021-05-03 10:29] LABS: Calcium 9.4 MG/DL (8.5-10.1); Osmolality,Calculated 306.8 MOS/KG (273-304); Potassium 5.8 MMOL/L (3.5-5.1)
[2021-05-03] MEDS ORDERED: MAGNESIUM SULF RIDER 2 GM/50 ML PREMIX IV ONE (11:00)
[2021-05-03] MEDS: INSULIN REGULAR 100 UNIT/ML SUBCUT SCH ×4 (11:25→22:23)
[2021-05-03] MEDS: PIPERACILLIN/TAZOBACTAM 3,375 MG in SODIUM CHLORIDE 0.9% 100 ML IV SCH ×2 (11:30→22:37)
[2021-05-03] MEDS ORDERED: DEXTROSE 50% 25 GM/50 ML SYRINGE IV ONE (13:40)
[2021-05-03] MEDS ORDERED: CALCIUM GLUCONATE 2,000 MG in SODIUM CHLORIDE 0.9% 100 ML IV ONE (13:42)
[2021-05-03] MEDS ORDERED: SODIUM POLYSTYRENE SULFATE 15 GM/60 ML BOTTLE PO ONE (13:42)
[2021-05-03] MEDS: SODIUM CHLORIDE 0.9% 1,000 ML IV SCH (16:12)
[2021-05-03] MEDS: INSULIN GLARGINE 100 UNIT/ML SUBCUT SCH (22:39)
[2021-05-04] MEDS: ONDANSETRON 4 MG/2 ML VIAL IV PRN (04:08)
[2021-05-04 05:08] LABS: Basophils # 0.1 10*3/uL (0.0-0.2); Basophils % 0.4 % (0.0-0.8); Eosinophils # 0.5 10*3/uL (0.0-0.87); Eosinophils % 3.3 % (0.00-10.9); Hematocrit 26.5 VOL% (35.7-47.0); Hemoglobin 7.7 GM/DL (12.0-16.0); Immature Granulocytes % 1.3 %; Immature Granulocytes Absolute 0.18 #; Lymphocytes # 2.7 10*3/uL (1.4-4.0); Lymphocytes % 19.9 % (21.3-54.2); Mean Corpuscular HGB Conc 29.1 GM/DL (32-36); Mean Corpuscular Volume 93.6 FL (87-102); Mean Platelet Volume 10.5 FL (9.6-12.0); Monocytes % 5.7 % (1.7-12.7); NRBC # 0.02 10*3/uL; Neutrophils % 69.4 % (38.7-73.9); Platelet Count 299 T/CUMM (130-400); Red Blood Count 2.83 MC/CUMM (3.8-5.5); Red Cell Distribution Width 14.5 % (9.3-17.3); White Blood Count 13.6 T/CUMM (4-12)
[2021-05-04 05:33] LABS: Alanine Aminotransferase < 6 U/L (13-56); Alkaline Phosphatase 74 U/L (45-117); Aspartate Amino Transferase 7 U/L (0-37); Blood Urea Nitrogen 72 MG/DL (7-18); Calcium 9.6 MG/DL (8.5-10.1); Carbon Dioxide 21 MMOL/L (21-32); Estimated Glom Filtration Rate 16 ML/MIN; Glucose 104 MG/DL (74-106); Osmolality,Calculated 293.8 MOS/KG (273-304); Potassium 4.4 MMOL/L (3.5-5.1); Sodium 137 MMOL/L (136-145); Total Protein 6.8 G/DL (6.4-8.2)
[2021-05-04] MEDS: INSULIN REGULAR 100 UNIT/ML SUBCUT SCH ×4 (07:44→23:23)
[2021-05-04] MEDS: PIPERACILLIN/TAZOBACTAM 3,375 MG in SODIUM CHLORIDE 0.9% 100 ML IV SCH ×2 (08:23→23:22)
[2021-05-04] MEDS: HEPARIN 5,000 UNIT/1 ML VIAL SUBCUT SCH ×2 (08:24→23:24)
[2021-05-04] MEDS: SODIUM CHLORIDE 0.9% 1,000 ML IV SCH (13:00)
[2021-05-04] MEDS ORDERED: ALBUTEROL 2.5 MG/3 ML NEB RESP TX PRN (13:44)
[2021-05-04] MEDS: levETIRAcetam 250 MG TABLET PO SCH ×2 (15:49→23:23)
[2021-05-04] MEDS: GABAPENTIN 300 MG CAPSULE PO SCH (23:21)
[2021-05-04] MEDS: ATORVASTATIN 40 MG TABLET PO SCH (23:21)
[2021-05-04] MEDS: INSULIN GLARGINE 100 UNIT/ML SUBCUT SCH (23:23)
[2021-05-05 05:28] LABS: Basophils # 0.1 10*3/uL (0.0-0.2); Basophils % 0.5 % (0.0-0.8); Eosinophils # 0.4 10*3/uL (0.0-0.87); Immature Granulocytes % 1.4 %; Immature Granulocytes Absolute 0.14 #; Lymphocytes % 19.8 % (21.3-54.2); Mean Corpuscular HGB Conc 29.2 GM/DL (32-36); Mean Corpuscular Volume 92.3 FL (87-102); Mean Platelet Volume 10.6 FL (9.6-12.0); Monocytes % 6.8 % (1.7-12.7); NRBC # 0.02 10*3/uL; Neutrophils % 67.5 % (38.7-73.9); Platelet Count 270 T/CUMM (130-400); Red Cell Distribution Width 14.6 % (9.3-17.3); White Blood Count 10.2 T/CUMM (4-12)
[2021-05-05 05:43] LABS: Calcium 8.6 MG/DL (8.5-10.1); Osmolality,Calculated 299.3 MOS/KG (273-304); Potassium 4.8 MMOL/L (3.5-5.1)
[2021-05-05] MEDS: INSULIN REGULAR 100 UNIT/ML SUBCUT SCH ×4 (07:30→21:46)
[2021-05-05] MEDS: GABAPENTIN 300 MG CAPSULE PO SCH ×2 (08:06→21:47)
[2021-05-05] MEDS: PIPERACILLIN/TAZOBACTAM 3,375 MG in SODIUM CHLORIDE 0.9% 100 ML IV SCH ×2 (08:06→21:47)
[2021-05-05] MEDS: HEPARIN 5,000 UNIT/1 ML VIAL SUBCUT SCH (08:07)
[2021-05-05] MEDS ORDERED: ASPIRIN CHEW 81 MG TABLET PO SCH (09:00)
[2021-05-05] MEDS ORDERED: CLOPIDOGREL 75 MG TABLET PO SCH (09:00)
[2021-05-05] MEDS: FLUTICASONE 50 MCG NASAL SPRAY 16 GM BOTTLE BOTH NARES SCH (09:00)
[2021-05-05 10:10] LABS: % Iron Saturation 23.5 % (18-50); Ferritin 126.9 ng/mL (8-252)
[2021-05-05 10:37] LABS: Folate 6.81 NG/ML (5.38-24.0)
[2021-05-05] MEDS: levETIRAcetam 250 MG TABLET PO SCH ×2 (10:38→21:47)
[2021-05-05 11:33] LABS: Hematocrit 23.7 VOL% (35.7-47.0)
[2021-05-05] MEDS ORDERED: diphenhydrAMINE CAP 25 MG CAPSULE ONE (12:18)
[2021-05-05] MEDS: diphenhydrAMINE CAP 25 MG CAPSULE PO PRN ×2 (12:19→21:47)
[2021-05-05] MEDS: INSULIN GLARGINE 100 UNIT/ML SUBCUT SCH (21:46)
[2021-05-05] MEDS: ATORVASTATIN 40 MG TABLET PO SCH (21:47)
[2021-05-05] MEDS: CETIRIZINE 10 MG TABLET PO PRN (21:47)
[2021-05-06 04:34] LABS: Basophils # 0.1 10*3/uL (0.0-0.2); Basophils % 0.6 % (0.0-0.8); Eosinophils # 0.4 10*3/uL (0.0-0.87); Eosinophils % 4.7 % (0.00-10.9); Hematocrit 21.8 VOL% (35.7-47.0); Hemoglobin 6.5 GM/DL (12.0-16.0); Immature Granulocytes % 1.3 %; Immature Granulocytes Absolute 0.12 #; Lymphocytes # 2.2 10*3/uL (1.4-4.0); Lymphocytes % 23.9 % (21.3-54.2); Mean Corpuscular HGB Conc 29.8 GM/DL (32-36); Mean Corpuscular Volume 92.4 FL (87-102); Mean Platelet Volume 10.5 FL (9.6-12.0); Monocytes % 8.5 % (1.7-12.7); NRBC # 0.04 10*3/uL; Platelet Count 260 T/CUMM (130-400); Red Blood Count 2.36 MC/CUMM (3.8-5.5); Red Cell Distribution Width 14.7 % (9.3-17.3); White Blood Count 9.3 T/CUMM (4-12)
[2021-05-06 04:52] LABS: Calcium 8.5 MG/DL (8.5-10.1); Osmolality,Calculated 302.4 MOS/KG (273-304); Potassium 4.9 MMOL/L (3.5-5.1)
[2021-05-06] MEDS: SODIUM CHLORIDE 0.9% 1,000 ML IV SCH (08:01)
[2021-05-06] MEDS: ONDANSETRON 4 MG/2 ML VIAL IV PRN (08:28)
[2021-05-06] MEDS ORDERED: SODIUM CHLORIDE 0.9% 1,000 ML IV PRN (09:23)
[2021-05-06] MEDS: PIPERACILLIN/TAZOBACTAM 3,375 MG in SODIUM CHLORIDE 0.9% 100 ML IV SCH ×2 (09:30→22:16)
[2021-05-06] MEDS: GABAPENTIN 300 MG CAPSULE PO SCH ×2 (09:31→21:17)
[2021-05-06] MEDS: INSULIN REGULAR 100 UNIT/ML SUBCUT SCH ×4 (09:31→21:17)
[2021-05-06] MEDS: levETIRAcetam 250 MG TABLET PO SCH ×2 (09:31→21:17)
[2021-05-06] MEDS: FLUTICASONE 50 MCG NASAL SPRAY 16 GM BOTTLE BOTH NARES SCH (12:38)
[2021-05-06] MEDS: INSULIN GLARGINE 100 UNIT/ML SUBCUT SCH (21:17)
[2021-05-06] MEDS: ATORVASTATIN 40 MG TABLET PO SCH (21:17)
[2021-05-07] MEDS: diphenhydrAMINE CAP 25 MG CAPSULE PO PRN ×2 (00:13→14:25)
[2021-05-07 05:48] LABS: Bilirubin,Urine Negative (Negative); Blood, Urine Small mg/dL (Negative); Glucose,Urine (UA) 50 mg/dL (Negative); Ketones,Urine Negative (Negative); Nitrite,Urine Negative (Negative); Protein,Urine 100 MG/DL; RBC,Urine 49 /HPF (0-4); Squamous Epithelial Cell,Urine Occasional /HPF (0-10); Urine Appearance CLOUDY (Clear); Urine Color Yellow (Yellow); Urine Specific Gravity 1.012 (1.001-1.035); Urine Urobilinogen < 2.0 EU/DL (<2.0)
[2021-05-07 06:05] LABS: Basophils # 0.1 10*3/uL (0.0-0.2); Basophils % 0.8 % (0.0-0.8); Eosinophils # 0.8 10*3/uL (0.0-0.87); Hematocrit 34.8 VOL% (35.7-47.0); Hemoglobin 10.5 GM/DL (12.0-16.0); Immature Granulocytes Absolute 0.21 #; Lymphocytes # 2.5 10*3/uL (1.4-4.0); Lymphocytes % 23.2 % (21.3-54.2); Mean Corpuscular HGB Conc 30.2 GM/DL (32-36); Mean Corpuscular Volume 92.8 FL (87-102); Mean Platelet Volume 10.2 FL (9.6-12.0); NRBC # 0.05 10*3/uL; Platelet Count 267 T/CUMM (130-400); Red Blood Count 3.75 MC/CUMM (3.8-5.5); White Blood Count 10.7 T/CUMM (4-12)
[2021-05-07] MEDS: INSULIN REGULAR 100 UNIT/ML SUBCUT SCH ×4 (07:36→20:49)
[2021-05-07] MEDS: FLUTICASONE 50 MCG NASAL SPRAY 16 GM BOTTLE BOTH NARES SCH (08:23)
[2021-05-07] MEDS: PIPERACILLIN/TAZOBACTAM 3,375 MG in SODIUM CHLORIDE 0.9% 100 ML IV SCH ×2 (08:24→20:54)
[2021-05-07] MEDS: GABAPENTIN 300 MG CAPSULE PO SCH ×2 (08:24→20:49)
[2021-05-07] MEDS: levETIRAcetam 250 MG TABLET PO SCH ×2 (08:24→20:49)
[2021-05-07] MEDS ORDERED: FLUCONAZOLE 150 MG TABLET PO ONE (11:27)
[2021-05-07] MEDS: ATORVASTATIN 40 MG TABLET PO SCH (20:49)
[2021-05-07] MEDS: INSULIN GLARGINE 100 UNIT/ML SUBCUT SCH (20:49)
[2021-05-08] MEDS: diphenhydrAMINE CAP 25 MG CAPSULE PO PRN ×3 (03:35→22:03)
[2021-05-08 06:44] LABS: Calcium 8.6 MG/DL (8.5-10.1); Osmolality,Calculated 296.4 MOS/KG (273-304); Potassium 5.1 MMOL/L (3.5-5.1)
[2021-05-08] MEDS: INSULIN REGULAR 100 UNIT/ML SUBCUT SCH ×4 (08:06→21:45)
[2021-05-08] MEDS: FLUTICASONE 50 MCG NASAL SPRAY 16 GM BOTTLE BOTH NARES SCH (08:06)
[2021-05-08] MEDS: PIPERACILLIN/TAZOBACTAM 3,375 MG in SODIUM CHLORIDE 0.9% 100 ML IV SCH ×2 (08:07→21:46)
[2021-05-08] MEDS: levETIRAcetam 250 MG TABLET PO SCH ×2 (08:07→21:45)
[2021-05-08] MEDS: GABAPENTIN 300 MG CAPSULE PO SCH ×2 (08:07→21:45)
[2021-05-08 08:17] LABS: Basophils # 0.1 10*3/uL (0.0-0.2); Basophils % 0.7 % (0.0-0.8); Eosinophils # 0.6 10*3/uL (0.0-0.87); Eosinophils % 6.8 % (0.00-10.9); Hematocrit 34.4 VOL% (35.7-47.0); Hemoglobin 10.2 GM/DL (12.0-16.0); Immature Granulocytes % 1.7 %; Immature Granulocytes Absolute 0.15 #; Lymphocytes # 1.4 10*3/uL (1.4-4.0); Lymphocytes % 15.5 % (21.3-54.2); Mean Corpuscular HGB Conc 29.7 GM/DL (32-36); Mean Corpuscular Volume 93.2 FL (87-102); Mean Platelet Volume 10.3 FL (9.6-12.0); Monocytes % 8.2 % (1.7-12.7); NRBC # 0.04 10*3/uL; Neutrophils % 67.1 % (38.7-73.9); Platelet Count 261 T/CUMM (130-400); Red Blood Count 3.69 MC/CUMM (3.8-5.5); Red Cell Distribution Width 14.7 % (9.3-17.3)
[2021-05-08] MEDS ORDERED: TUBERCULIN SKIN TEST 0.1 ML SYRINGE INTRADERM ONE (10:35)
[2021-05-08] MEDS: POLYETHYLENE GLYCOL POWDER 17 GM PACK PO SCH (16:07)
[2021-05-08] MEDS: ALBUTEROL 2.5 MG/3 ML NEB RESP TX SCH (20:40)
[2021-05-08] MEDS: INSULIN GLARGINE 100 UNIT/ML SUBCUT SCH (21:45)
[2021-05-08] MEDS: ATORVASTATIN 40 MG TABLET PO SCH (21:45)
[2021-05-09] MEDS: ALBUTEROL 2.5 MG/3 ML NEB RESP TX SCH ×4 (00:40→20:40)
[2021-05-09] MEDS: CETIRIZINE 10 MG TABLET PO PRN ×2 (02:59→17:40)
[2021-05-09 06:36] LABS: Basophils # 0.1 10*3/uL (0.0-0.2); Basophils % 0.6 % (0.0-0.8); Eosinophils # 0.6 10*3/uL (0.0-0.87); Eosinophils % 6.8 % (0.00-10.9); Hematocrit 34.3 VOL% (35.7-47.0); Hemoglobin 10.1 GM/DL (12.0-16.0); Immature Granulocytes % 1.8 %; Immature Granulocytes Absolute 0.15 #; Lymphocytes # 1.9 10*3/uL (1.4-4.0); Lymphocytes % 22.6 % (21.3-54.2); Mean Corpuscular HGB Conc 29.4 GM/DL (32-36); Mean Corpuscular Volume 94.5 FL (87-102); Mean Platelet Volume 9.9 FL (9.6-12.0); Monocytes % 9.2 % (1.7-12.7); Platelet Count 226 T/CUMM (130-400); Red Blood Count 3.63 MC/CUMM (3.8-5.5); Red Cell Distribution Width 14.6 % (9.3-17.3); White Blood Count 8.4 T/CUMM (4-12)
[2021-05-09 07:05] LABS: Calcium 8.5 MG/DL (8.5-10.1); Osmolality,Calculated 293.5 MOS/KG (273-304); Potassium 5.3 MMOL/L (3.5-5.1)
[2021-05-09] MEDS ORDERED: MAGNESIUM SULF RIDER 2 GM/50 ML PREMIX IV ONE (07:34)
[2021-05-09] MEDS: PIPERACILLIN/TAZOBACTAM 3,375 MG in SODIUM CHLORIDE 0.9% 100 ML IV SCH ×2 (10:20→23:00)
[2021-05-09] MEDS: levETIRAcetam 250 MG TABLET PO SCH ×2 (10:58→22:34)
[2021-05-09] MEDS: INSULIN REGULAR 100 UNIT/ML SUBCUT SCH ×4 (10:58→22:34)
[2021-05-09] MEDS: PANTOPRAZOLE 40 MG TABLET PO SCH (10:59)
[2021-05-09] MEDS: GABAPENTIN 300 MG CAPSULE PO SCH ×2 (10:59→22:33)
[2021-05-09] MEDS: POLYETHYLENE GLYCOL POWDER 17 GM PACK PO SCH (10:59)
[2021-05-09] MEDS: FLUTICASONE 50 MCG NASAL SPRAY 16 GM BOTTLE BOTH NARES SCH (11:00)
[2021-05-09] MEDS: diphenhydrAMINE CAP 25 MG CAPSULE PO PRN ×2 (17:40→22:33)
[2021-05-09] MEDS: INSULIN GLARGINE 100 UNIT/ML SUBCUT SCH (22:34)
[2021-05-09] MEDS: ATORVASTATIN 40 MG TABLET PO SCH (22:34)
[2021-05-10] MEDS: ALBUTEROL 2.5 MG/3 ML NEB RESP TX SCH ×2 (03:15→07:30)
[2021-05-10 06:33] LABS: Basophils # 0.1 10*3/uL (0.0-0.2); Basophils % 0.8 % (0.0-0.8); Eosinophils # 0.6 10*3/uL (0.0-0.87); Eosinophils % 5.7 % (0.00-10.9); Hematocrit 37.8 VOL% (35.7-47.0); Hemoglobin 11.5 GM/DL (12.0-16.0); Immature Granulocytes % 1.4 %; Immature Granulocytes Absolute 0.14 #; Lymphocytes # 2.7 10*3/uL (1.4-4.0); Lymphocytes % 25.9 % (21.3-54.2); Mean Corpuscular HGB Conc 30.4 GM/DL (32-36); Mean Platelet Volume 10.7 FL (9.6-12.0); Monocytes % 8.2 % (1.7-12.7); NRBC # 0.02 10*3/uL; Platelet Count 219 T/CUMM (130-400); Red Blood Count 4.11 MC/CUMM (3.8-5.5); Red Cell Distribution Width 14.8 % (9.3-17.3); White Blood Count 10.2 T/CUMM (4-12)
[2021-05-10 07:04] LABS: Calcium 8.9 MG/DL (8.5-10.1); Osmolality,Calculated 290.5 MOS/KG (273-304); Potassium 5.7 MMOL/L (3.5-5.1)
[2021-05-10] MEDS ORDERED: SODIUM POLYSTYRENE SULFATE 15 GM/60 ML BOTTLE PO ONE ×2 (09:00→11:21)
[2021-05-10] MEDS: GABAPENTIN 300 MG CAPSULE PO SCH (09:41)
[2021-05-10] MEDS: levETIRAcetam 250 MG TABLET PO SCH (09:41)
[2021-05-10] MEDS: diphenhydrAMINE CAP 25 MG CAPSULE PO PRN (09:41)
[2021-05-10] MEDS: INSULIN REGULAR 100 UNIT/ML SUBCUT SCH ×3 (09:41→16:14)
[2021-05-10] MEDS: PANTOPRAZOLE 40 MG TABLET PO SCH (09:41)
[2021-05-10] MEDS: POLYETHYLENE GLYCOL POWDER 17 GM PACK PO SCH (09:41)
[2021-05-10] MEDS: FLUTICASONE 50 MCG NASAL SPRAY 16 GM BOTTLE BOTH NARES SCH (09:42)
[2021-05-10] MEDS: PIPERACILLIN/TAZOBACTAM 3,375 MG in SODIUM CHLORIDE 0.9% 100 ML IV SCH (09:50)
[2021-05-10 16:21] VITALS: BP 129/46
== END 2021-05-10 17:29 | disposition swing bed (61) | DRG 193 ==
LOC: EDBD → EDUNIT# → N.ED 00:43 → N.EDINP 00:43 → N.5E 08:30 → SUATTDRO 05-04 16:25
PROVIDERS: ADMIT Internal Medicine; ATTEND Internal Medicine Geriatric Medicine